=== PATIENT | female | born 1970 | race Caucasian/White ===

== ENCOUNTER → 2017-07-08 | Outpatient (CLI) | payer OTHER, SELFPAY | PROVIDERS: Visit Provider Nurse Practitioner Women's Health | DX: Z12.31 Encounter for screening mammogram for malignant neoplasm of breast (principal) | CPT/HCPCS: 77067; G0202 ==

== ENCOUNTER → 2018-04-24 07:42 | Outpatient (CLI) | payer OTHER, SELFPAY ==
--- NOTE | 2018-04-24 07:50 | XR_ITS ---
XR foot LT min 3V HISTORY: Soft tissue swelling ITS.REASON: cyst to lt foot ORDERING PHYSICIAN: Lukas Ocampo PATIENT AGE: 48 years COMPARISON: None FINDINGS: No fracture or dislocation. No lytic or blastic change. There is normal mineralization.. The joint spaces are well-preserved. No significant degenerative/arthritic changes. No erosive changes evident. No radiopaque foreign body or abnormal soft tissue calcification IMPRESSION: Negative, no acute finding
--- NOTE | 2018-04-24 07:50 | XR_ITS ---
EXAM: XR cervical spine 5V HISTORY: ITS.REASON: numbness to upper ext ORDERING PHYSICIAN: Lukas Ocampo PATIENT AGE: 48 years COMPARISON: None FINDINGS: Normal alignment. No fracture or dislocation. No lytic or blastic change. There is degenerative disc disease at C5-C6 with small endplate osteophytes and slight decrease in the disc space. Mild foraminal narrowing is present on the right at C3-C4 and C5-C6 from facet and uncovertebral hypertrophy. No cervical rib. Left carotid calcifications are suspected. IMPRESSION: Degenerative disc disease at C5-C6 with foraminal narrowing on the right at C3-C4 and C5-C6
--- NOTE | 2018-04-24 07:50 | XR_ITS ---
XR foot RT min 3V HISTORY: ITS.REASON: knot on foot ORDERING PHYSICIAN: Lukas Ocampo PATIENT AGE: 48 years COMPARISON: None FINDINGS: No fracture or dislocation. No lytic or blastic change. There is normal mineralization.. The joint spaces are well-preserved. No significant degenerative/arthritic changes. No erosive changes evident. No obvious soft tissue anomalies. No radiopaque foreign body IMPRESSION: Negative, no acute finding
[2018-04-24 08:46] LABS: Basophils % 0.4 % (0.1-2.0); Eosinophils # 0.1 K/mm3 (0.0-0.4); Eosinophils % 1.3 % (0.1-12.0); Hematocrit 44.5 % (37.0-47.0); Hemoglobin 14.5 g/dL (12.2-16.2); Lymphocytes # 1.7 K/mm3 (0.7-4.5); Lymphocytes % 18.3 K/mm3 (10-50); Mean Corpuscular HGB Conc 32.5 g/dL (31.8-35.4); Mean Corpuscular Hemoglobin 29.3 pg (27.0-31.2); Mean Corpuscular Volume 90.2 fl (81-99); Mean Platelet Volume 6.7 fl (7.4-10.4); Monocytes # 0.4 K/mm3 (0.1-1.0); Monocytes % 4.6 % (1.7-9.3); Neutrophils # 6.9 K/mm3 (1.8-7.8); Neutrophils % 75.4 % (37.0-80.0); Platelet Count 409 K/mm3 (142-424); Red Blood Count 4.94 M/mm3 (4.20-5.40); Red Cell Distribution Width 13.8 % (11.5-17.5); White Blood Count 9.2 K/mm3 (4.8-10.8)
[2018-04-24 09:44] LABS: Alanine Aminotransferase 22 U/L (12-78); Albumin Level 3.9 gm/dL (3.4-5.0); Albumin/Globulin Ratio 1.1 (1.1-1.8); Alkaline Phosphatase 86 U/L (46-116); Anion Gap 14.7 mEq/L (5-15); Aspartate Amino Transferase 7 U/L (15-37); Bilirubin,Total 0.3 mg/dL (0.2-1.0); Blood Urea Nitrogen 17 mg/dL (7-18); Calcium 9.2 mg/dL (8.5-10.1); Carbon Dioxide 25 mmol/L (21.0-32.0); Chloride 104 mmol/L (98-107); Chol/HDL Ratio 6.2 (1-3.5); Cholesterol 203 mg/dL (140-200); Creatinine,Serum 0.76 mg/dL (0.55-1.02); Estimated Glomerular Filt Rate 81 ml/min (>60); GFR (African American) 98 ML/MIN (>60); Globulin 3.4 gm/dl (1.3-3.2); Glucose 109 mg/dL (74-106); HDL Cholesterol 33 mg/dL (29-89); LDL Cholesterol 126 mg/dL (0-130); Potassium 3.7 mmoL/L (3.5-5.1); Sodium 140 mmol/L (136-145); T4 (Thyroxine) 7.3 ug/dl (4.7-13.3); Thyroid Stimulating Hormone 1.63 uIU/ml (0.358-3.740); Total Protein,Serum 7.3 gm/dL (6.4-8.2); Triglycerides 222 mg/dL (30-200); VLDL Cholesterol 44 mg/dL (0-40)
[2018-04-25 13:14] LABS: Vitamin D 25 Hydroxy 18.4 ng/mL (30.0-100.0)
== END ==
PROVIDERS: PCP Nurse Practitioner Family; Visit Provider Nurse Practitioner Family
DX: R20.0 Anesthesia of skin (principal); R20.2 Paresthesia of skin; Z13.220 Encounter for screening for lipoid disorders; M85.671 Other cyst of bone, right ankle and foot; M85.672 Other cyst of bone, left ankle and foot
CPT/HCPCS: 36415; 72050; 73630; 80053; 80061; 82652; 84436; 84443; 85025

== ENCOUNTER 2018-05-14 08:53 | Outpatient (RCR) | payer OTHER, SELFPAY ==
--- NOTE | 2018-05-14 09:53 | HMH.PTOPEV ---
PT Outpatient Evaluation Rehab PT Outpatient Evaluation Start: 05/14/18 09:10 Freq: Status: Active Protocol: Document 05/14/18 09:42 JIMMY (Rec: 05/14/18 09:52 PHORAURELIA [id number]) Electronically Signed By Abiel Macedo, PT 05/14/18 09:42 Outpatient Therapy Subjective History Subjective History Pt is 48 yowf who presents with c/o neck pain and intermittent left elbow pain x ~ 6 mos. She also reports numbness in tingling at night in fernando fingers intermittently. She had X-rays performed which show DDD at C5-6. She reports elbow pain is sharp, but only occurs when lifting something heavy or carrying my grandbaby. She reports ibuprophen decreases her pain. NOTE: She presents with exaggerated tenderness to palpation along the CT junction, no tenderness noted anywhere else. Chief Complaint Pain Symptom Type Ache Sharp Symptoms Relieved By OTC Meds Symptoms Aggravated By Lifting Prior Functional Limitations None Current Functional Limitations Lifting Symptom Description Constant but Variable Level of pain today (0-10) 3 Pain scale - at its worst (0-10) 8 Cervical Eval Palpation Cervical Muscles R CT Junction L CT Junction Cervical/Thoracic Palpation Findings Tenderness Posture Head/C-Spine Posture Sitting Position Extended Head/C-Spine Posture Standing Position Extended Passive Joint Mobility Cervical PIVM WNL: R OA L OA R AA L AA R C2/3 L C2/3 R C3/4 L C3/4 R C4/5 L C4/5 R C5/6 L C5/6 R C6/7 L C6/7 R C7/T1 L C7/T1 AROM Cervical Spine Extension Active Range of 0-60 Motion (degrees) Cervical Spine Flexion Active Range of 0-60 Motion (degrees)
== END 2018-05-14 08:54 | disposition home or self-care (01) ==
LOC: PT 08:53
PROVIDERS: Visit Provider Nurse Practitioner Family
DX: M54.2 Cervicalgia (principal)
CPT/HCPCS: 97163

== ENCOUNTER → 2018-07-16 10:25 | Outpatient (CLI) | payer OTHER, SELFPAY ==
--- NOTE | 2018-07-16 10:27 | MM_ITS ---
MM Dig screening mamm BI w/CAD CAD Screening COMPARISON: Digital mammograms with CAD 07/08/2017 and 06/25/2016 INDICATION: There is a history of breast cancer patient's paternal aunt diagnosed after menopause. TECHNIQUE: Standard CC and MLO images were obtained. R2 CAD reviewed. FINDINGS: Scattered fibroglandular densities are seen throughout both breasts. There is no new or suspicious lesion in either breast and there are no suspicious microcalcifications. There are stable small nodes in both axilla. IMPRESSION: Fibrofatty parenchyma no suspicious lesion seen BI-RADS Category: 1 Negative RECOMMENDED FOLLOW-UP: 1YR - 1 YEAR FOLLOW-UP (A letter has been sent to the patient regarding results of the study.)
== END ==
PROVIDERS: PCP Nurse Practitioner Family; Visit Provider Nurse Practitioner Obstetrics & Gynecology
DX: Z12.31 Encounter for screening mammogram for malignant neoplasm of breast (principal)
CPT/HCPCS: 77067

== ENCOUNTER → 2019-07-29 08:53 | Outpatient (CLI) | payer OTHER, SELFPAY ==
--- NOTE | 2019-07-29 08:59 | MM_ITS ---
PROCEDURE: MM DIG SCREENING MAMM BI W/CAD CLINICAL INDICATION: SCREENING COMPARISON: DMDXUR DIG MAMM-DX UNI-RT W/CAD from 12/27/2016 DMSB DIG MAMM-SCREEN MORIAH W/CAD from 07/08/2017 [facility] MM Dig screening mamm BI w/CAD from 07/16/2018 TECHNIQUE: Standard CC and MLO images were obtained. R2 CAD reviewed. FINDINGS: Scattered fibroglandular densities are seen throughout both breasts. There is a benign-appearing microcalcification outer quadrant right breast. There is no suspicious lesion and no suspicious microcalcifications. IMPRESSION: Fibrofatty parenchyma with no suspicious lesions seen BI-RAD Category: 2 Benign Finding(s) FOLLOW-UP: 1YR 1 Year Follow-up (A letter has been sent to the patient regarding results of the study.) Dictated by: Dr. Noah Cabrera MD 07/31/2019 10:[address] Noah Cabrera MD in [place] 07/31/2019 10:29
== END ==
PROVIDERS: PCP Nurse Practitioner Family
DX: Z12.31 Encounter for screening mammogram for malignant neoplasm of breast (principal)
CPT/HCPCS: 77067

== ENCOUNTER → 2020-09-06 10:02 | Outpatient (CLI) | payer OTHER, SELFPAY ==
--- NOTE | 2020-09-06 10:05 | MM_ITS ---
PROCEDURE: MM DIG SCREENING MAMM BI W/CAD Digital Breast Tomosynthesis Included CLINICAL INDICATION: SCREENING There is a history of breast cancer in the patient's paternal aunt. COMPARISON: MG DMSB DIG MAMM-SCREEN MORIAH W/CAD from 07/08/2017 MG [facility] MM Dig screening mamm BI w/CAD from 07/16/2018 MG MM DIG SCREENING MAMM BI W/CAD from 07/29/2019 TECHNIQUE: Standard CC and MLO images and 3D Tomosynthesis was obtained. R2 CAD reviewed. FINDINGS: Fibroglandular densities are seen throughout both breasts. There is a possible small area of architectural distortion upper outer quadrant right breast. Recommend the patient return for spot compression views and ultrasound if this proves to be a true lesion. There are no suspicious microcalcifications. IMPRESSION: Fibrofatty parenchyma with possible new area of architectural distortion right breast BI-RAD Category: 0 Need Additional Imaging Evaluation FOLLOW-UP: IMM Immediate Follow-up Recommended (A letter has been sent to the patient regarding results of the study.) Dictated by: Dr. Noah Cabrera MD 09/08/2020 07:40 Dr. Noah Cabrera MD in [place] 09/08/2020 07:40
== END ==
PROVIDERS: PCP Nurse Practitioner Family; Visit Provider Nurse Practitioner Women's Health
DX: Z12.31 Encounter for screening mammogram for malignant neoplasm of breast (principal)
CPT/HCPCS: 77063; 77067

== ENCOUNTER → 2020-09-21 14:23 | Outpatient (CLI) | payer OTHER, SELFPAY ==
--- NOTE | 2020-09-21 14:25 | MM_ITS ---
PROCEDURE: MM DIG MAMM DX UNILAT RT CAD Digital Breast Tomosynthesis Included CLINICAL INDICATION: ABN MAMM Follow-up asymmetric density COMPARISON: MG [facility] MM Dig screening mamm BI w/CAD from 07/16/2018 MG MM DIG SCREENING MAMM BI W/CAD from 07/29/2019 MG MM DIG SCREENING MAMM BI W/CAD from 09/06/2020 US US BREAST RT COMPLETE from 09/21/2020 TECHNIQUE: Problem solving views performed along with right breast ultrasound FINDINGS: Spot-compression views are performed of the right breast along with right breast ultrasound. The area of asymmetric density in the upper outer aspect of the right breast appears to compress out on focal spot compression views with no suspicious abnormality. There is some minimal residual density noted in this area which may be due to fibroglandular tissue. Right breast ultrasound: No cystic or solid lesion evident. IMPRESSION: Probably benign findings. Recommend six-month sonographic and mammographic follow-up BI-RAD Category: 3 Probably Benign Finding Short Term Follow-up FOLLOW-UP: 6M 6Month Follow-up (A letter has been sent to the patient regarding results of the study.) Dictated by: Daryn Lewis MD 09/26/2020 17:35 Daryn Lewis MD in [place] 09/26/2020 17:35
== END ==
PROVIDERS: PCP Nurse Practitioner Family; Referring Provider Nurse Practitioner Women's Health
DX: R92.8 Other abnormal and inconclusive findings on diagnostic imaging of breast (principal)
CPT/HCPCS: 76641; 77061; 77065; G0279

== ENCOUNTER → 2020-11-18 19:22 | Outpatient (CLI) | payer OTHER, SELFPAY ==
[2020-11-18 19:31] LABS: Basophils # 0.1 K/mm3 (0-0.2); Eosinophils # 0.1 K/mm3 (0.0-0.4); Hematocrit 44.9 % (37.0-47.0); Hemoglobin 14.4 g/dL (12.2-16.2); Lymphocytes # 2.2 K/mm3 (0.7-4.5); Lymphocytes % 21.1 % (10-50); Mean Corpuscular Hemoglobin 29.2 pg (27.0-31.2); Mean Corpuscular Volume 91.2 fl (81-99); Mean Platelet Volume 8.3 fl (7.4-10.4); Monocytes # 0.4 K/mm3 (0.1-1.0); Monocytes % 4.2 % (1.7-9.3); Neutrophils # 7.7 K/mm3 (1.8-7.8); Neutrophils % 72.7 % (37.0-80.0); Platelet Count 434 K/mm3 (142-424); Red Blood Count 4.93 M/mm3 (4.20-5.40); Red Cell Distribution Width 13.9 % (11.5-17.5); White Blood Count 10.6 K/mm3 (4.8-10.8)
[2020-11-18 19:32] LABS: Alanine Aminotransferase 21 U/L (12-78); Albumin Level 4.4 g/dl (3.5-5.0); Albumin/Globulin Ratio 1.8 (1.1-1.8); Alkaline Phosphatase 85 U/L (38-126); Anion Gap 14.3 mEq/L (5-15); Aspartate Amino Transferase 23 U/L (14-36); Bilirubin,Total 0.2 mg/dl (0.2-1.3); Blood Urea Nitrogen 11 mg/dl (7-17); Calcium 9.6 mg/dl (8.4-10.2); Carbon Dioxide 24 mmol/L (22.0-30.0); Chloride 105 mmol/L (98-107); Chol/HDL Ratio 6.7 (1-3.5); Cholesterol 209 mg/dl (140-200); Estimated Glomerular Filt Rate 105 ml/min (>60); GFR (African American) 128 ML/MIN (>60); Globulin 2.5 g/dL (1.3-3.2); Glucose 98 mg/dl (74-100); HDL Cholesterol 31 mg/dl (40-60); Potassium 4.3 mmoL/L (3.5-5.1); Sodium 139 mmol/L (136-145); Total Protein,Serum 6.9 g/dl (6.3-8.2); Triglycerides 318 mg/dl (30-150); VLDL Cholesterol 64 mg/dL (0-40)
[2020-11-18 19:43] LABS: Direct LDL Cholesterol 137.63 mg/dL (100-129)
[2020-11-18 19:50] LABS: T4 (Thyroxine) 6.2 ug/dl (5.53-11.0)
[2020-11-18 19:51] LABS: 25-OH Vitamin D, Total < 12.8 ng/mL (30-100)
[2020-11-18 20:04] LABS: Thyroid Stimulating Hormone 1.65 uIU/mL (0.465-4.68)
== END ==
PROVIDERS: Visit Provider Nurse Practitioner Family
DX: I10 Essential (primary) hypertension (principal); M54.9 Dorsalgia, unspecified; E78.5 Hyperlipidemia, unspecified; E55.9 Vitamin D deficiency, unspecified
CPT/HCPCS: 80053; 80061; 82306; 84436; 84443; 85025

== ENCOUNTER → 2020-12-13 14:52 | Outpatient (CLI) | payer OTHER, SELFPAY ==
[2020-12-13 15:12] LABS: Alanine Aminotransferase 23 U/L (12-78); Alkaline Phosphatase 84 U/L (38-126); Aspartate Amino Transferase 22 U/L (14-36); Bilirubin,Direct 0.1 mg/dl (0.0-0.4); Bilirubin,Indirect 0.2 mg/dL (0.0-0.9); Bilirubin,Total 0.3 mg/dl (0.2-1.3); Bilirubin,Unconjugated 0.2 mg/dL (0.0-1.1)
[2020-12-13 15:13] LABS: Albumin Level 4.3 g/dl (3.5-5.0); Total Protein,Serum 6.9 g/dl (6.3-8.2)
== END ==
PROVIDERS: Nurse Practitioner Family; Visit Provider Emergency Medicine
DX: R79.89 Other specified abnormal findings of blood chemistry (principal)
CPT/HCPCS: 80076

== ENCOUNTER → 2021-01-31 09:00 | Outpatient (CLI) | payer OTHER, SELFPAY ==
--- NOTE | 2021-01-31 09:03 | XR_ITS ---
PROCEDURE: XR KNEE RT 3V CLINICAL INDICATION: knee pain COMPARISON: No exams were available for comparison FINDINGS: No fracture or dislocation. No lytic or blastic change. There is normal mineralization. There are minimal osteoarthritic changes with minimal spurring medially. Vascular calcification noted Other findings:None. IMPRESSION: Minimal osteoarthritic change Dictated by: Daryn Lewis MD 01/31/2021 11:18 Daryn Lewis MD in [place] 01/31/2021 11:18
== END ==
PROVIDERS: PCP Nurse Practitioner Family; Visit Provider Nurse Practitioner Family
DX: M25.561 Pain in right knee (principal)
CPT/HCPCS: 73562

== ENCOUNTER → 2021-03-10 12:16 | Outpatient (CLI) | payer OTHER, SELFPAY ==
--- NOTE | 2021-03-10 12:19 | XR_ITS ---
PROCEDURE: XR KNEE RT 4V CLINICAL INDICATION: right knee pain COMPARISON: CR XR KNEE RT 3V from 01/31/2021 FINDINGS: No fracture or dislocation. No lytic or blastic change. There is normal mineralization. There are minimal osteoarthritic change at the patellofemoral joint with minimal spurring laterally Other findings:Nonspecific vascular calcification IMPRESSION: Minimal osteoarthritic change patellofemoral joint otherwise negative Dictated by: Daryn Lewis MD 03/10/2021 12:46 Daryn Lewis MD in [place] 03/10/2021 12:46
== END ==
PROVIDERS: PCP Nurse Practitioner Family; Visit Provider Orthopaedic Surgery
DX: M25.561 Pain in right knee (principal)
CPT/HCPCS: 73564

== ENCOUNTER → 2021-04-28 14:12 | Outpatient (CLI) | payer OTHER, SELFPAY ==
--- NOTE | 2021-04-28 14:21 | MM_ITS ---
PROCEDURE: MM DIG MAMM DX UNILAT RT CAD Digital Breast Tomosynthesis Included Right breast ultrasound with axilla complete CLINICAL INDICATION: RT BREAST FU COMPARISON: MG MM DIG SCREENING MAMM BI W/CAD from 07/29/2019 MG MM DIG SCREENING MAMM BI W/CAD from 09/06/2020 MG MM DIG MAMM DX UNILAT RT CAD from 09/21/2020 US US BREAST RT COMPLETE from 04/28/2021 TECHNIQUE: Standard CC and MLO images and 3D Tomosynthesis was obtained. R2 CAD reviewed. FINDINGS: There are scattered areas of fibroglandular density. No suspicious appearing mass, malignant-appearing microcalcification, architectural distortion, or skin thickening.. No change in the area of asymmetry consistent with underlying fibroglandular tissue. No evidence of malignancy. Right breast ultrasound: No cystic or solid lesions apparent. IMPRESSION: No change with no evidence of malignancy. BI-RAD Category: 2 Benign Finding FOLLOW-UP: 6M 6 Month Follow-up Recommend resuming bilateral screening mammogram in 6 months. (A letter has been sent to the patient regarding results of the study.) Dictated by: Daryn Lewis MD 05/10/2021 09:08 Daryn Lewis MD in [place] 05/10/2021 09:08
== END ==
PROVIDERS: PCP Nurse Practitioner Family; Visit Provider Nurse Practitioner Women's Health
DX: R92.8 Other abnormal and inconclusive findings on diagnostic imaging of breast (principal)
CPT/HCPCS: 76641; 77061; 77065; G0279

== ENCOUNTER → 2022-01-02 10:37 | Outpatient (CLI) | payer OTHER, SELFPAY ==
--- NOTE | 2022-01-02 10:41 | MM_ITS ---
PROCEDURE INFORMATION: Exam: MG Bilateral Screening 3D Mammography Exam date and time: 01/02/2022 10:47 AM Age: 51 years old Clinical indication: Screening examination. A paternal aunt had breast cancer. TECHNIQUE: Imaging protocol: Bilateral Screening tomosynthesis and 2D mammography including computer-aided detection (CAD) when performed. COMPARISON: 1. MG MM DIG MAMM DX UNILAT RT CAD 04/28/2021 2:35 PM 2. MG MM DIG MAMM DX UNILAT RT CAD 09/21/2020 2:58 PM 3. MG MM DIG SCREENING MAMM BI W/CAD 09/06/2020 10:06 AM 4. MG MM DIG SCREENING MAMM BI W/CAD 07/29/2019 9:12 AM FINDINGS: MAMMOGRAPHY: Breast composition: There are scattered areas of fibroglandular density. Mass: No suspicious mass. Architectural distortion: None. Calcifications: No suspicious calcifications. Asymmetric density: None. Skin thickening: None. Axillary adenopathy: None. IMPRESSION: No mammographic evidence of malignancy. Annual screening is recommended unless otherwise clinically indicated. ASSESSMENT: BI-RADS Category 1: Negative
== END ==
PROVIDERS: PCP Nurse Practitioner Family; Visit Provider Nurse Practitioner Women's Health
DX: Z12.31 Encounter for screening mammogram for malignant neoplasm of breast (principal)
CPT/HCPCS: 77063; 77067

== ENCOUNTER → 2022-01-05 09:24 | Outpatient (CLI) | payer OTHER, SELFPAY ==
[2022-01-05 17:05] LABS: Hemoglobin A1C 5.6 % (4.0-6.0)
== END ==
PROVIDERS: PCP Nurse Practitioner Family; Visit Provider Nurse Practitioner Family
DX: R73.09 Other abnormal glucose (principal)
CPT/HCPCS: 83036

== ENCOUNTER → 2022-04-26 17:27 | Outpatient (CLI) | payer OTHER, SELFPAY ==
[2022-04-26 15:29] LABS: Alanine Aminotransferase 38 U/L (12-78); Albumin/Globulin Ratio 1.5 (1.1-1.8); Alkaline Phosphatase 103 U/L (38-126); Aspartate Amino Transferase 32 U/L (14-36); Blood Urea Nitrogen 14 mg/dl (7-17); Calcium 9.1 mg/dl (8.4-10.2); Carbon Dioxide 24 mmol/L (22.0-30.0); Chloride 108 mmol/L (98-107); Cholesterol 156 mg/dl (140-200); Estimated Glomerular Filt Rate 105 ml/min (>60); GFR (African American) 127 ML/MIN (>60); Globulin 2.7 g/dL (1.3-3.2); Glucose 131 mg/dl (74-100); HDL Cholesterol 31 mg/dl (40-60); Sodium 139 mmol/L (136-145); Total Protein,Serum 6.7 g/dl (6.3-8.2); Triglycerides 148 mg/dl (30-150); VLDL Cholesterol 30 mg/dL (0-40)
[2022-04-26 15:39] LABS: Basophils # 0.1 K/mm3 (0-0.2); Basophils % 1.3 % (0.1-2.0); Eosinophils # 0.1 K/mm3 (0.0-0.4); Eosinophils % 1.3 % (0.1-12.0); Hematocrit 45.8 % (37.0-47.0); Hemoglobin 14.1 g/dL (12.2-16.2); Lymphocytes # 2.1 K/mm3 (0.7-4.5); Lymphocytes % 25.6 % (10-50); Mean Corpuscular HGB Conc 30.8 g/dL (31.8-35.4); Mean Corpuscular Hemoglobin 29.1 pg (27.0-31.2); Mean Corpuscular Volume 94.6 fl (81-99); Monocytes # 0.3 K/mm3 (0.1-1.0); Monocytes % 3.8 % (1.7-9.3); Neutrophils # 5.7 K/mm3 (1.8-7.8); Platelet Count 460 K/mm3 (142-424); Red Blood Count 4.84 M/mm3 (4.20-5.40); Red Cell Distribution Width 13.8 % (11.5-17.5); White Blood Count 8.4 K/mm3 (4.8-10.8)
[2022-04-26 15:45] LABS: 25-OH Vitamin D, Total 20.5 ng/mL (30-100); Bilirubin,Total < 0.1 mg/dl (0.2-1.3)
[2022-04-26 15:59] LABS: Thyroid Stimulating Hormone 1.54 uIU/mL (0.465-4.68)
[2022-04-26 16:29] LABS: Hemoglobin A1C 5.8 % (4.0-6.0)
[2022-04-28 08:20] LABS: Direct LDL Cholesterol 87 mg/dL (100-129)
== END ==
PROVIDERS: PCP Physician Assistant; Visit Provider Physician Assistant
DX: E78.5 Hyperlipidemia, unspecified (principal); E55.9 Vitamin D deficiency, unspecified; R73.9 Hyperglycemia, unspecified
CPT/HCPCS: 80053; 80061; 82306; 83036; 84443; 85025

== ENCOUNTER → 2022-04-27 09:27 | Outpatient (CLI) | payer OTHER, SELFPAY ==
--- NOTE | 2022-04-27 09:32 | XR_ITS ---
FINAL REPORT CLINICAL HISTORY: wheezing, smoker FINDINGS: Two views of the chest were obtained. The heart size and pulmonary vascularity are within normal limits. The mediastinum is normal. No acute pulmonary abnormality is identified. There is no pneumothorax. The bony thorax is intact. IMPRESSION: No active cardiopulmonary disease. Reviewed, Interpreted and Dictated by Brayan Torres III, MD Transcribed by Ana Johnson Authenticated and . [facility]
== END ==
PROVIDERS: PCP Physician Assistant; Visit Provider Student in an Organized Health Care Education/Training Program
DX: R06.2 Wheezing (principal)
CPT/HCPCS: 71046

== ENCOUNTER → 2022-06-29 10:21 | Outpatient (CLI) | payer OTHER, SELFPAY ==
--- NOTE | 2022-06-29 11:00 | PC.NURSE ---
PRE AND POST PFT completed without incident. Albuterol 0.083% given via HHN, per protocol, pt tolerated tx well.
== END ==
PROVIDERS: PCP Student in an Organized Health Care Education/Training Program; Visit Provider Internal Medicine Pulmonary Disease
DX: R06.2 Wheezing (principal)
CPT/HCPCS: 94060

== ENCOUNTER → 2022-07-26 13:06 | Outpatient (CLI) | payer OTHER, SELFPAY ==
--- NOTE | 2022-07-26 13:07 | CA_ITS ---
FINAL REPORT TECHNIQUE: Multiple transverse and longitudinal images were performed of right the femoral-popliteal deep venous system with augmentation and compression maneuvers. CLINICAL HISTORY: RLE burning pain worsening with walking, smoker FINDINGS: Right lower extremity duplex ultrasound demonstrates normal flow in the deep venous system. There is no abnormal echogenicity to suggest thrombus. There is normal compression and augmentation. IMPRESSION: No evidence of right DVT. Reviewed, Interpreted and Dictated by Shashank Blanca MD Transcribed by Bryon Salas Authenticated and [facility]
== END ==
PROVIDERS: PCP Physician Assistant; Visit Provider Physician Assistant
DX: M79.661 Pain in right lower leg (principal)
CPT/HCPCS: 93971

== ENCOUNTER → 2022-09-28 13:27 | Outpatient (CLI) | payer OTHER, SELFPAY ==
--- NOTE | 2022-09-28 13:27 | MR_ITS ---
FINAL REPORT CLINICAL HISTORY: longstanding radiculopathy of lumbar spine unable to stand on right leg very long x couple of months FINDINGS: Multiplanar MR imaging of the lumbar spine was performed without contrast. On the sagittal T2-weighted images, disc degeneration is seen throughout The vertebral alignment is normal. There is no evidence of fracture. The conus has an unremarkable appearance. T12-L1: There is no significant canal stenosis or neural foraminal narrowing. L1-2: There is no significant canal stenosis or neural foraminal narrowing. L2-3: An annular bulge is present. There is no significant canal stenosis or neural foraminal narrowing. L3-4: An annular bulge is present. There is a right foraminal disc protrusion with moderate right and mild left neural foraminal narrowing. L4-5: An annular bulge is present with moderate bilateral neural foraminal narrowing. L5-S1: An annular bulge is present. There is a right foraminal disc protrusion resulting in right lateral recess stenosis and right S1 nerve root impingement. There is moderate bilateral neural foraminal narrowing. IMPRESSION: Right foraminal disc protrusion at L5-S1 results in right lateral recess stenosis and right S1 nerve root impingement. Multilevel degenerative disc disease as above. Reviewed, Interpreted and Dictated by Brayan Torres III, MD Transcribed by Ana Johnson Authenticated and [facility]
== END ==
PROVIDERS: PCP Physician Assistant; Visit Provider Physician Assistant
DX: M54.10 Radiculopathy, site unspecified (principal)
CPT/HCPCS: 72148; 76376

== ENCOUNTER 2022-10-16 14:46 | Outpatient (RCR) | payer OTHER, SELFPAY ==
--- NOTE | 2022-10-16 15:52 | HMH.PTOPEV ---
PT Outpatient Evaluation Rehab PT Outpatient Evaluation Start: 10/16/22 15:14 Freq: Status: Active Protocol: Document 10/16/22 15:14 SUE (Rec: 10/16/22 15:52 SUE [id number]) E-signed By Rohan Simon, PT Outpatient Therapy Subjective History Subjective History Pt reports insidious onset right LE pain beginning ~2 months ago. Pt reports right LE lateral calf, posterior knee area localized severe pain, josue. w/wt bearing. Pt reports recent MRI of lumbar spine has revealed disc herniation at L5-S1, 'but my back doesn't hurt at all. I don't understand.' Pt also reports recent NCV and US of the RLE were negative. Chief Complaint Pain,Paresthesia Symptom Type Ache,Sharp,Dull,Stabbing, Shooting Symptoms Relieved By Rest/Positioning,Heat Symptoms Aggravated By Standing,Physical Activity, Walking Prior Functional Limitations Housework,Standing,Walking Current Functional Limitations Housework,Standing,Walking Symptom Description Constant but Variable Level of pain today (0-10) 7 Pain scale - at its best (0-10) 6 Pain scale - at its worst (0-10) 9 Lumbopelvic Eval Posture Thoracic Spine Posture Standing Position Flattened Lumbar Spine Posture Standing Position Flattened Assistive device Assistive Devices None / NA Gait Observation General Gait Pattern Observation Antalgic Gait Palapation tenderness right thoracic spinal tenderness No lumbar spinal tenderness Yes: 2-3/4 paraspinal tenderness No buttock tenderness No Accessory Movement L-spine Vertebrae Accessory Movements Central P/A [place] that Elicit Symptoms L5 bilateral S1 bilateral Range of Motion Lumbar Spine Active Flexion Range of 0-50 Motion (degrees) Lumbar Spine Active Extension Range of 0-10* Motion (degrees) Left Lumbar Spine Lateral Flexion Active 0-20 Range of Motion (degrees) Right Lumbar Spine Lateral Flexion 0-20 Active Range of Motion (degrees) Lumbar Spine ROM Limitations Pain Manual Muscle Test Left Knee Extension Strength Grade 5 Normal Knee Flexion Strength Grade 5 Normal Hip Flexion Strength Grade 5 Normal Hip Abduction Strength Grade 4 Good Hip Adduction Strength Grade 4 Good Extensor Hallucis Longus Strength Grade
--- NOTE | 2022-10-16 15:53 | HMH.PTOPEV ---
PT Outpatient Evaluation Rehab PT Outpatient Evaluation Start: 10/16/22 15:14 Freq: Status: Active Protocol: Document 10/16/22 15:14 SUE (Rec: 10/16/22 15:52 SUE [id number]) E-signed By Rohan Simon, PT Outpatient Therapy Subjective History Subjective History Pt reports insidious onset right LE pain beginning ~2 months ago. Pt reports right LE lateral calf, posterior knee area localized severe pain, josue. w/wt bearing. Pt reports recent MRI of lumbar spine has revealed disc herniation at L5-S1, 'but my back doesn't hurt at all. I don't understand.' Pt also reports recent NCV and US of the RLE were negative. Chief Complaint Pain,Paresthesia Symptom Type Ache,Sharp,Dull,Stabbing, Shooting Symptoms Relieved By Rest/Positioning,Heat Symptoms Aggravated By Standing,Physical Activity, Walking Prior Functional Limitations Housework,Standing,Walking Current Functional Limitations Housework,Standing,Walking Symptom Description Constant but Variable Level of pain today (0-10) 7 Pain scale - at its best (0-10) 6 Pain scale - at its worst (0-10) 9 Lumbopelvic Eval Posture Thoracic Spine Posture Standing Position Flattened Lumbar Spine Posture Standing Position Flattened Assistive device Assistive Devices None / NA Gait Observation General Gait Pattern Observation Antalgic Gait Palapation tenderness right thoracic spinal tenderness No lumbar spinal tenderness Yes: 2-3/4 paraspinal tenderness No buttock tenderness No Accessory Movement L-spine Vertebrae Accessory Movements Central P/A [place] that Elicit Symptoms L5 bilateral S1 bilateral Range of Motion Lumbar Spine Active Flexion Range of 0-50 Motion (degrees) Lumbar Spine Active Extension Range of 0-10* Motion (degrees) Left Lumbar Spine Lateral Flexion Active 0-20 Range of Motion (degrees) Right Lumbar Spine Lateral Flexion 0-20 Active Range of Motion (degrees) Lumbar Spine ROM Limitations Pain Manual Muscle Test Left Knee Extension Strength Grade 5 Normal Knee Flexion Strength Grade 5 Normal Hip Flexion Strength Grade 5 Normal Hip Abduction Strength Grade 4 Good Hip Adduction Strength Grade 4 Good Extensor Hallucis Longus Strength Grade
== END 2022-10-16 14:50 | disposition home or self-care (01) ==
LOC: PT 14:46
PROVIDERS: PCP Physician Assistant; Visit Provider Physician Assistant
DX: M79.604 Pain in right leg (principal)
CPT/HCPCS: 97163

== ENCOUNTER → 2022-10-24 16:32 | Outpatient (CLI) | payer OTHER, SELFPAY ==
[2022-10-24 15:09] LABS: Basophils # 0.1 K/mm3 (0-0.2); Eosinophils # 0.1 K/mm3 (0.0-0.4); Eosinophils % 1.4 % (0.1-12.0); Hematocrit 47.1 % (37.0-47.0); Hemoglobin 15.1 g/dL (12.2-16.2); Lymphocytes # 2.5 K/mm3 (0.7-4.5); Lymphocytes % 24.5 % (10-50); Mean Corpuscular Hemoglobin 29.6 pg (27.0-31.2); Mean Corpuscular Volume 92.6 fl (81-99); Mean Platelet Volume 8.4 fl (7.4-10.4); Monocytes # 0.4 K/mm3 (0.1-1.0); Monocytes % 4.3 % (1.7-9.3); Neutrophils # 6.9 K/mm3 (1.8-7.8); Neutrophils % 68.8 % (37.0-80.0); Platelet Count 525 K/mm3 (142-424); Red Blood Count 5.09 M/mm3 (4.20-5.40); Red Cell Distribution Width 14.1 % (11.5-17.5); White Blood Count 10.1 K/mm3 (4.8-10.8)
[2022-10-24 15:14] LABS: Alanine Aminotransferase 23 U/L (12-78); Albumin Level 4.8 g/dl (3.5-5.0); Albumin/Globulin Ratio 1.5 (1.1-1.8); Alkaline Phosphatase 101 U/L (38-126); Anion Gap 9.9 mEq/L (5-15); Aspartate Amino Transferase 26 U/L (14-36); Bilirubin,Total 0.6 mg/dl (0.2-1.3); Blood Urea Nitrogen 14 mg/dl (7-17); Calcium 9.5 mg/dl (8.4-10.2); Carbon Dioxide 29 mmol/L (22.0-30.0); Chloride 103 mmol/L (98-107); Chol/HDL Ratio 6.5 (1-3.5); Cholesterol 239 mg/dl (140-200); Estimated Glomerular Filt Rate 88 ml/min (>60); GFR (African American) 106 ML/MIN (>60); Globulin 3.1 g/dL (1.3-3.2); Glucose 98 mg/dl (74-100); HDL Cholesterol 37 mg/dl (40-60); Potassium 4.9 mmoL/L (3.5-5.1); Sodium 137 mmol/L (136-145); Total Protein,Serum 7.9 g/dl (6.3-8.2); Triglycerides 207 mg/dl (30-150); VLDL Cholesterol 41 mg/dL (0-40)
[2022-10-24 15:25] LABS: Direct LDL Cholesterol 161.62 mg/dL (100-129)
[2022-10-24 15:36] LABS: 25-OH Vitamin D, Total < 12.8 ng/mL (30-100)
[2022-10-24 15:46] LABS: Thyroid Stimulating Hormone 1.77 uIU/mL (0.465-4.68)
[2022-10-24 16:05] LABS: Vitamin B12 413 pg/mL (239-931)
== END ==
PROVIDERS: PCP Physician Assistant; Visit Provider Physician Assistant
DX: M54.16 Radiculopathy, lumbar region (principal); E78.5 Hyperlipidemia, unspecified; E55.9 Vitamin D deficiency, unspecified
CPT/HCPCS: 80053; 80061; 82306; 82607; 84443; 85025

== ENCOUNTER → 2023-01-03 10:02 | Outpatient (CLI) | payer OTHER, SELFPAY ==
--- NOTE | 2023-01-03 10:02 | MM_ITS ---
PROCEDURE INFORMATION: Exam: MG Bilateral Screening 3D Mammography Exam date and time: 01/03/2023 10:00 AM Age: 52 years old Clinical indication: Screening examination TECHNIQUE: Imaging protocol: Bilateral Screening tomosynthesis and 2D mammography including computer-aided detection (CAD) when performed. COMPARISON: 1. MG MM DIG SCREENING MAMM BI W/CAD 01/02/2022 10:47 AM 2. MG MM DIG MAMM DX UNILAT RT CAD 04/28/2021 2:35 PM FINDINGS: MAMMOGRAPHY: Breast composition: There are scattered areas of fibroglandular density. Mass: None. Architectural distortion: Questionable architectural distortion in the middle to posterior third of the left lateral breast only well seen in the craniocaudal projection Calcifications: No suspicious calcifications. Asymmetric density: None. Skin thickening: None. Axillary adenopathy: None. IMPRESSION: Patient to be recalled for spot compression views of the left breast in the CC and MLO projections, a full 90 degree lateral view, and left breast ultrasound for further evaluation of questionable left breast distortion ASSESSMENT: BI-RADS Category 0: Incomplete- Need Additional Imaging Evaluation and/or Prior Mammograms for Comparison
== END ==
PROVIDERS: PCP Physician Assistant; Visit Provider Physician Assistant
DX: Z12.31 Encounter for screening mammogram for malignant neoplasm of breast (principal)
CPT/HCPCS: 77063; 77067

== ENCOUNTER → 2023-01-09 08:15 | Outpatient (POV) | payer OTHER, SELFPAY ==
[2023-01-09 08:21] VITALS: BP 161/90; PULSE 91; RESP 20; O2SAT 94; BMI 30.2
--- NOTE | 2023-01-09 08:54 | EXP.PAIN.OV ---
HPI Data of Consult Patient: new to practice Consult date: 01/09/23 Requesting Physician: Leonarda Han APRN Primary Care Provider: YUE Najera Consult Narrative Reason for consult: Low back pain, right leg pain History of present illness: Ms. Justin is a 52 year old female who presents today as a new patient. She is a referral from Mari Conn's office. Today she rates her pain a 7 out of 10. Patient states her pain is all in her low back with radiating symptoms into her right leg down to her foot. She states this has been going on for over a year. Patient denies any specific trauma or injury that initially led to this symptoms. She states it did get better however over the last several months it has worsened again. She does describe this as a constant achy sensation that is worse with increased activity or prolonged positioning. Patient does state it interferes with her ability to perform activities of daily living such as cooking and cleaning. She has tried [id number] Tylenol along with Advil with minimal improvement. Patient continues to use a heating pad and Aspercreme along with a hand-held massager with no additional relief. Patient has also been to physical therapy with no change in her pain symptoms. Patient is now currently prescribed [place] 5 mg 3 times a day from her primary care doctor and gabapentin 100 mg twice a day. Patient denies any side effects from these medications. She states that the [place] only eases her pain. Her Tom is [id number]. Its been reviewed and appropriate. CC: Leonarda Han APRN [facility] Disclaimer: The information contained in this section may have been updated after the patient was seen, as this information can be updated by other users. Medical History Lower extremity pain Lumbar nerve root impingement Family History (Updated 01/09/23 @ 08:21 by Lucrecia Batista RN) Other No significant family history Social History (Updated 01/09/23 @ 08:22 by Lucrecia aBtista RN) Smoking Status: Current every day smoker tobacco type: cigarettes packs per day: 10 alcohol intake: never substance use type: denies use current occupational status: other Travel in the last 8 weeks: None household members: family housing: apartment Review of Systems Review of Systems Review of systems:: pertinent systems reviewed and negative unless documented below Review of systems (narrative): Review of Systems: General: No recent weight changes, no fever, no sleep disturbances Respiratory: No cough, no shortness of air, no recurring pulmonary infections Cardiovascular/peripheral vascular: No chest pain, no palpitations, no edema, no shortness of breath Gastrointestinal: No new onset incontinence, normal bowel movements reported Genitourinary: No new onset incontinence Musculoskeletal: Low back pain, right leg pain Psychiatric: [Normal mood/affect] Neurological: [Denies weakness in extremities], [denies balance issues] Meds Home Medications and Allergies Home Medications Medication Instructions Recorded Confirmed Type ibuprofen 200 mg tablet (Advil) 200 mg PO ONCE PRN Pain 04/16/18 01/09/23 History hydrocodone 5 mg-acetaminophen 325 1 tab PO TID PRN pain #60 tabs 12/04/22 01/09/23 Rx mg tablet atorvastatin 10 mg tablet 10 mg PO HS Cholesterol 01/09/23 01/09/23 History cholecalciferol (vitamin D3) 50 50 mcg PO DAILY Supplement 01/09/23 01/09/23 History mcg (2,000 unit) capsule ergocalciferol (vitamin D2) 1,250 50,000 unit PO QWEEK Supplement 01/09/23 01/09/23 History mcg (50,000 unit) capsule New Prescriptions to Start Prescriptions: Allergies Allergy/AdvReac Type Severity Reaction Status Date / Time gabapentin AdvReac Severe Chest Pain Verified 12/04/22 10:24 Objective Vital signs: Pulse Resp BP Pulse Ox 91 H 20 161/90 H 94 L 01/09/23 08:21 01/09/23 08:21 01/09/23 08:2
== END ==
PROVIDERS: PCP Physician Assistant; Visit Provider Nurse Practitioner Family
DX: M51.16 Intervertebral disc disorders with radiculopathy, lumbar region (principal)
CPT/HCPCS: 99202; G0463

== ENCOUNTER → 2023-01-17 13:41 | Outpatient (CLI) | payer OTHER, SELFPAY ==
--- NOTE | 2023-01-17 13:41 | US_ITS ---
PROCEDURE INFORMATION: Exam: US Left Breast, Complete MG Left Diagnostic Breast Tomosynthesis Exam date and time: 01/17/2023 3:29 PM Age: 53 years old Clinical indication: Patient recalled on the basis of a screening mammogram for further evaluation; Left breast; questionable distortion TECHNIQUE: Imaging protocol: Complete ultrasound of all four quadrants of the left breast and the retroareolar regions, including ultrasound of the axilla when performed. Left Diagnostic tomosynthesis and 2D mammography including computer-aided detection (CAD) when performed. Unilateral or bilateral exam. COMPARISON: MG MM DIG MAMM DX UNILAT LT CAD 01/17/2023 1:54 PM FINDINGS: MAMMOGRAPHY: Digital diagnostic spot compression views of the left breast and 90 degree lateral view of the left breast demonstrate normal overlapping fibroglandular structures without persistent mass or asymmetry identified. ULTRASOUND: Sonographic images of the left breast including the retroareolar region, all 4 quadrants and the axilla do not demonstrate any solid or cystic masses. No architectural distortion or acoustical shadowing. No skin thickening or axillary adenopathy. IMPRESSION: No mammographic or sonographic evidence of malignancy. Annual bilateral mammographic screening is recommended unless otherwise clinically indicated. ASSESSMENT: BI-RADS Category 1: Negative
== END ==
PROVIDERS: PCP Physician Assistant; Visit Provider Physician Assistant
DX: R92.8 Other abnormal and inconclusive findings on diagnostic imaging of breast (principal)
CPT/HCPCS: 76641; 77061; 77065; G0279

== ENCOUNTER → 2023-02-11 13:44 | Outpatient (CLI) | payer OTHER, SELFPAY ==
[2023-02-11 13:54] LABS: Amphetamine/Metha Screen,Urine Negative ng/ml (<1000)
[2023-02-11 13:55] LABS: Barbiturates Screen,Urine Negative ng/ml (<200); Benzodiazepines Screen,Urine Negative ng/ml (<200)
[2023-02-11 13:56] LABS: Cannabinoid Screen,Urine Negative ng/ml (<50); Cocaine Screen,Urine Negative ng/ml (<300)
[2023-02-11 13:57] LABS: Methadone Screen,Urine Negative ng/ml (<300)
[2023-02-11 13:58] LABS: Opiate Screen,Urine Positive ng/ml (<300); Phencyclidine Screen,Urine Negative ng/ml (<25)
== END ==
PROVIDERS: PCP Physician Assistant; Visit Provider Physician Assistant
DX: M51.36 Other intervertebral disc degeneration, lumbar region (principal)
CPT/HCPCS: 80305

== ENCOUNTER 2023-03-05 10:21 | Day surgery (SDC) | payer OTHER, SELFPAY ==
[2023-03-05 10:30] VITALS: BP 148/87; BP 154/92; PULSE 81; PULSE 82; PULSE 86; RESP 18; TEMP 36.6; O2SAT 97; BMI 30.2
[2023-03-05 10:38] VITALS: BP 146/83; PULSE 77; RESP 18; O2SAT 97
--- NOTE | 2023-03-05 10:46 | P.PCN_ITS ---
Procedure Date: 03/05/23 Time: 10:30 Anesthesiologist:: Haile Carmona CRNA Complications:: None Pre-procedure Diagnosis:: Degenerative disc lumbar spine multilevels. Lumbar radiculopathy. Lumbar disc bulge L5-S1. Post-procedure Diagnosis:: Same. Indications for Procedure:: Patient is a very pleasant 52-year-old female that comes our clinic today for right L5-S1 transforaminal epidural steroid injection. Patient complains of right hip and leg pain to the foot. She describes the pain as constant, dull, aching. She rates pain 7/10 Procedure Details:: Details of the procedure were explained to the patient. The patient was taken the procedure room placed in the prone position. The area of the lumbar spine was cleansed using chlorhexidine as a cleansing solution. At this time using fluoroscopy guidance markers were placed on the right lateral border of the L5 vertebral body. The skin and subcutaneous tissue was anesthetized using 1% lidocaine and 25-gauge needle. At this time using a 22-gauge 3-1/2 inch spinal needle the right upper one third of the L5-S1 foramen was accessed. Needle positions were confirmed and a lateral view using fluoroscopy and contrast dye. At this time 1 cc of 1% lidocaine +20 mg of Depo-Medrol was injected after negative aspiration. [place] were removed. Band-Aid applied. Patient tolerated the procedure without difficulty. There are no complications. Plan and Disposition:: Patient was discharged without incident.
== END 2023-03-05 10:38 | disposition home or self-care (01) ==
LOC: SC.PAINP 10:21
PROVIDERS: PCP Physician Assistant; Visit Provider Nurse Anesthetist, Certified Registered
DX: M51.16 Intervertebral disc disorders with radiculopathy, lumbar region (principal)
CPT/HCPCS: 64483; J1030

== ENCOUNTER → 2023-03-19 13:04 | Outpatient (CLI) | payer OTHER, SELFPAY ==
[2023-03-19 17:55] LABS: Amphetamine/Metha Screen,Urine Negative ng/ml (<1000); Barbiturates Screen,Urine Negative ng/ml (<200)
[2023-03-19 17:56] LABS: Benzodiazepines Screen,Urine Negative ng/ml (<200)
[2023-03-19 17:57] LABS: Cannabinoid Screen,Urine Negative ng/ml (<50); Opiate Screen,Urine Positive ng/ml (<300)
[2023-03-19 17:58] LABS: Cocaine Screen,Urine Negative ng/ml (<300)
[2023-03-19 17:59] LABS: Methadone Screen,Urine Negative ng/ml (<300)
[2023-03-19 18:00] LABS: Phencyclidine Screen,Urine Negative ng/ml (<25)
== END ==
PROVIDERS: PCP Physician Assistant; Visit Provider Physician Assistant
DX: M54.16 Radiculopathy, lumbar region (principal)
CPT/HCPCS: 80305

== ENCOUNTER → 2023-03-20 11:32 | Outpatient (POV) | payer OTHER, SELFPAY ==
[2023-03-20 11:35] VITALS: BP 115/80; PULSE 83; RESP 20; BMI 30.2
--- NOTE | 2023-03-20 11:48 | A.OFFVIS_ITS ---
[facility] Pain Management SOAP Note Subjective:: Patient is a pleasant 53-year-old female who presents today for follow-up of right transforaminal epidural steroid injection L5-S1 on 03/05/2023. We are currently treating the patient for degenerative disc disease of lumbar spine with lumbar radiculopathy symptoms, lumbar nerve root impingement. Today she rates her pain a 2 out of 10. Patient states that she has at least had 40% improvement or more following this injection and feels like it is still continuing to provide additional relief. Patient states she has been able to move around easier with decreased pain and that she does not have a limp like what she did prior. She does state that the pain is more tolerable. She is currently managed with [place] 5 mg 3 times a day from her primary care doctor and that she has discontinued her gabapentin that she was previously on. Her Tom is [id number]. Its been reviewed and appropriate. Review of Systems: General: No recent weight changes, no fever, no sleep disturbances Respiratory: No cough, no shortness of air, no recurring pulmonary infections Cardiovascular/peripheral vascular: No chest pain, no palpitations, no edema, no shortness of breath Gastrointestinal: No new onset incontinence, normal bowel movements reported Genitourinary: No new onset incontinence Musculoskeletal: Low back pain, right leg pain Psychiatric: [Normal mood/affect] Neurological: [Denies weakness in extremities], [denies balance issues] Objective:: Physical Exam: General: Alert and oriented x3, no acute distress, pleasant and cooperative Lungs: Respirations even and unlabored, symmetrical chest expansion Eyes: PERRL Musculoskeletal: Flexion and extension of lumbar [spine] somewhat guarded secondary to pain, [antalgic gait noted] Neurological: Speech clear, no gross sensory deficit Assessment:: Degenerative disc disease of lumbar spine with lumbar radiculopathy symptoms, nerve root impingement, right leg pain Plan:: Patient has had significant improvement following her right transforaminal epidural steroid injection and does not require any additional injective therapy at this time. Patient will return to clinic in 1 month for reevaluation of symptoms and plan of care. Patient has been instructed to contact the clinic with any concerns before the next appointment. Dr. Rizzo has reviewed this note and agrees with this plan of care. This note was dictated using voice recognition software and make contain errors or omissions. [facility] Disclaimer: The information contained in this section may have been updated after the patient was seen, as this information can be updated by other users. Medical History Lower extremity pain Lumbar nerve root impingement Family History Other No significant family history Social History Smoking Status: Current every day smoker tobacco type: cigarettes packs per day: 10 alcohol intake: never substance use type: denies use current occupational status: other Travel in the last 8 weeks: None household members: family housing: apartment
== END ==
PROVIDERS: PCP Physician Assistant; Visit Provider Nurse Practitioner Family
DX: M51.16 Intervertebral disc disorders with radiculopathy, lumbar region (principal); G54.9 Nerve root and plexus disorder, unspecified; M79.604 Pain in right leg
CPT/HCPCS: 99212; G0463

== ENCOUNTER → 2023-04-18 09:43 | Outpatient (POV) | payer OTHER, SELFPAY ==
--- NOTE | 2023-04-18 09:51 | A.OFFVIS_ITS ---
[facility] Pain Management SOAP Note Subjective:: Patient is a pleasant 53-year-old female who presents today for 1 month follow- up. We are currently treating the patient for degenerative disc disease of the lumbar spine with lumbar radiculopathy symptoms, lumbar nerve root impingement. Today she rates her pain a 3 out of 10. Patient denies any new trauma or injury. She states she continues to do well from her previous right transforaminal epidural steroid injection L5-S1 from back in the middle of February. Patient does state that she is continued to have improvement of at least 50% and states that on occasion when she has worsening pain she is able to take one of her pain pills and it does bring it down to a manageable level. Patient does state overall she still feels much more functional following the injection. She is currently managed on [place] 5 mg 3 times a day from her primary care doctor. Her Tom is [id number]. Its been reviewed and appropriate. Review of Systems: General: No recent weight changes, no fever, no sleep disturbances Respiratory: No cough, no shortness of air, no recurring pulmonary infections Cardiovascular/peripheral vascular: No chest pain, no palpitations, no edema, no shortness of breath Gastrointestinal: No new onset incontinence, normal bowel movements reported Genitourinary: No new onset incontinence Musculoskeletal: Low back pain Psychiatric: [Normal mood/affect] Neurological: [Denies weakness in extremities], [denies balance issues] Objective:: Physical Exam: General: Alert and oriented x3, no acute distress, pleasant and cooperative Lungs: Respirations even and unlabored, symmetrical chest expansion Eyes: PERRL Musculoskeletal: Flexion and extension of lumbar [spine] somewhat guarded secondary to pain, [antalgic gait noted] Neurological: Speech clear, no gross sensory deficit Assessment:: Degenerative disc disease of lumbar spine with lumbar radiculopathy symptoms, lumbar nerve root impingement Plan:: Patient continues to get significant improvement following her transforaminal epidural steroid injection and does not require any additional injective therapy at this time. Patient will return to clinic in 3 months for reevaluation of symptoms and plan of care. Patient has been instructed to contact the clinic with any concerns before the next appointment. Dr. Rizzo has reviewed this note and agrees with this plan of care. This note was dictated using voice recognition software and make contain errors or omissions. [facility] Disclaimer: The information contained in this section may have been updated after the patient was seen, as this information can be updated by other users. Medical History Lower extremity pain Lumbar nerve root impingement Family History Other No significant family history Social History Smoking Status: Current every day smoker tobacco type: cigarettes packs per day: 10 alcohol intake: never substance use type: denies use current occupational status: other Travel in the last 8 weeks: None household members: family housing: apartment
[2023-04-18 10:35] VITALS: BP 132/81; PULSE 78; RESP 18; O2SAT 97; BMI 30.2
== END ==
PROVIDERS: PCP Physician Assistant; Visit Provider Nurse Practitioner Family
DX: M51.16 Intervertebral disc disorders with radiculopathy, lumbar region (principal); G54.4 Lumbosacral root disorders, not elsewhere classified
CPT/HCPCS: 99212; G0463

== ENCOUNTER → 2023-07-17 09:45 | Outpatient (POV) | payer OTHER, SELFPAY ==
--- NOTE | 2023-07-17 09:46 | EXP.PAIN.SOA ---
[facility] Pain Management SOAP Note Subjective:: Patient is a pleasant 53-year-old female who presents today for 3-month follow-up. We are currently treating the patient for degenerative disc disease of lumbar spine with lumbar radiculopathy symptoms, lumbar nerve root impingement. Today she rates her pain a 5 out of 10. Patient states she started having more pain in and around her right hip and describes it as an aching, throbbing sensation with some numbness. She states the pain does interfere with her ability perform activities of daily living such as cooking and cleaning. She has continued to try [id number] medications along with heat and ice and topicals with no additional relief. Patient does try to be very active and does a home exercise regimen with minimal improvement. Patient states she has a history of sciatica issues. Patient previously had a transforaminal epidural at L4-L5 back in February that did provide approximately 50% relief and lasted the last several months. She is currently managed with [place] 5 mg 3 times a day from her primary care doctor. She denies any side effects from this medication. Her Tom has been reviewed and appropriate. Review of Systems: General: No recent weight changes, no fever, no sleep disturbances Respiratory: No cough, no shortness of air, no recurring pulmonary infections Cardiovascular/peripheral vascular: No chest pain, no palpitations, no edema, no shortness of breath Gastrointestinal: No new onset incontinence, normal bowel movements reported Genitourinary: No new onset incontinence Musculoskeletal: Low back pain, right hip pain Psychiatric: [Normal mood/affect] Neurological: [Denies weakness in extremities], [denies balance issues] Objective:: Physical Exam: General: Alert and oriented x3, no acute distress, pleasant and cooperative Lungs: Respirations even and unlabored, symmetrical chest expansion Eyes: PERRL Musculoskeletal: Flexion and extension of lumbar [spine] somewhat guarded secondary to pain, [antalgic gait noted] extreme point tenderness along right SI and right greater trochanteric bursa with positive right Reji's, Ottoniel's, Gaenslen's, compression and distraction exam Neurological: Speech clear, no gross sensory deficit Assessment:: Degenerative disc disease of lumbar spine with lumbar radiculopathy symptoms, lumbar nerve root impingement, right sacroiliitis, right greater trochanteric bursitis Plan:: Patient is experiencing worsening pain in her low back along the right hip with extreme point tenderness at her right SI and right greater trochanteric bursa. Patient also had a positive right Reji's, Ottoniel's, Gaenslen's, compression and distraction exam. I have discussed with the patient that she may benefit from a right SI and right greater trochanteric bursa injection. Risk and benefits of these injections were explained to the patient and she would like to proceed forward with this plan of care. Patient will be scheduled for a right SI and right greater trochanteric bursa injection under fluoroscopy. Patient has been instructed to contact the clinic with any concerns before the next appointment. Dr. Rizzo has reviewed this note and agrees with this plan of care. This note was dictated using voice recognition software and make contain errors or omissions. [facility] Disclaimer: The information contained in this section may have been updated after the patient was seen, as this information can be updated by other users. Medical History Lower extremity pain Lumbar nerve root impingement Family History Other No significant family history Social History Smoking Status: Current every day smoker tobacco type: cigarettes packs per day: 10 alcohol intake: never substance use type: denies use current occupational status: other Travel
[2023-07-17 10:20] VITALS: BP 149/86; PULSE 92; RESP 18; O2SAT 95; BMI 30.2
== END ==
PROVIDERS: PCP Physician Assistant; Visit Provider Nurse Practitioner Family
DX: M51.16 Intervertebral disc disorders with radiculopathy, lumbar region (principal); G54.4 Lumbosacral root disorders, not elsewhere classified; M46.1 Sacroiliitis, not elsewhere classified; M70.61 Trochanteric bursitis, right hip
CPT/HCPCS: 99212; G0463

== ENCOUNTER 2023-08-06 11:54 | Day surgery (SDC) | payer OTHER, SELFPAY ==
[2023-08-06 11:55] VITALS: BP 124/81; PULSE 95; RESP 16; O2SAT 96; BMI 30.2
[2023-08-06 12:01] VITALS: BP 161/86; PULSE 92; O2SAT 95
[2023-08-06 12:06] VITALS: BP 161/86; PULSE 99; O2SAT 96
[2023-08-06 12:07] VITALS: BP 149/83; PULSE 88; RESP 16; O2SAT 96
--- NOTE | 2023-08-06 12:09 | EXP.PAIN.PRO ---
Procedure Date: 08/06/23 Time: 12:00 Anesthesiologist:: Haile Carmona CRNA Complications:: None Pre-procedure Diagnosis:: Right sacroiliitis. Post-procedure Diagnosis:: Same. Indications for Procedure:: Patient is a pleasant 53-year-old female comes our clinic today for right sacroiliac joint injection of cortisone. Patient reports right low lumbar back pain as well as right posterior hip pain. Patient describes the pain as constant, dull, aching. Patient reports difficulty transitioning from sitting to standing. She rates her pain 7/10. Procedure Details:: Procedure: Right sacroliliac joint injection under fluoroscopy Informed consent was obtained and the risk and benefits of the procedure were explained to the patient.~ The patient was taken to the procedure room and noninvasive monitors were placed including noninvasive blood pressure cuff and pulse oximeter.~ The patient was placed prone on the procedure table.~ The~ right hip was cleansed using Betadine as a cleansing solution.~ C-arm fluorosocpy was used to view the right SI joint.~ The skin and subcutaneous tissues were anesthetized using Lidocaine 1.5% and a 25-gauge needle.~ After this, a 22-gauge spinal needle was inserted under fluoroscopic guidance into the inferior aspect of the right SI joint.~ Omnipaque dye was injected and a good spread was seen throughout the joint.~ After this, approximately 5 mL of bupivacaine 0.25% and Depo-Medrol 40 mg was incrementally injected into the sacroiliac joint.~ The patient tolerated the procedure well with no complications.~ The patient was observed in the Pain Clinic, then discharged home neurologically intact.~ Plan and Disposition:: Patient was discharged without incident.
== END 2023-08-06 12:07 | disposition home or self-care (01) ==
PROVIDERS: PCP Physician Assistant; Visit Provider Nurse Anesthetist, Certified Registered
DX: M46.1 Sacroiliitis, not elsewhere classified (principal)
CPT/HCPCS: 27096; G0260; J1040

== ENCOUNTER 2023-08-09 10:00 | Day surgery (SDC) | payer OTHER, SELFPAY ==
[2023-08-09 10:27] VITALS: BP 139/83; PULSE 88; RESP 16; TEMP 36.3; O2SAT 96; BMI 30.2
[2023-08-09 10:46] VITALS: BP 156/86; PULSE 89; O2SAT 97
[2023-08-09 10:53] VITALS: BP 156/86; PULSE 89; O2SAT 97
[2023-08-09 10:57] VITALS: BP 140/89; PULSE 77; RESP 16; O2SAT 96
--- NOTE | 2023-08-09 10:59 | EXP.PAIN.PRO ---
Procedure Date: 08/09/23 Time: 10:30 Anesthesiologist:: Haile Carmona CRNA Complications:: None Pre-procedure Diagnosis:: Chronic right hip pain. Right trochanteric bursitis. Post-procedure Diagnosis:: Same. Indications for Procedure:: Patient is a very pleasant 53-year-old female comes our clinic today for a right trochanteric bursa injection. Patient has right lateral hip pain she describes as constant, dull, achy. Patient has extreme point tenderness over the right trochanteric bursa. She rates her pain 8/10. Procedure Details:: C-arm fluoroscopy was used to view the left greater trochanter.~ The skin and subcutaneous tissues overlying the right greater trochanter were anesthetized using lidocaine, 1.5% and a 25-gauge needle.~ After this, a 22-gauge spinal needle was inserted and advanced until it contacted the right greater trochanter.~ Dye was injected and good spread was seen throughout the right trochanteric bursa. After this, approximately 5 mL of bupivacaine, 0.25% and Depo-Medrol, 40 mg was incrementally injected into the right right trochanteric bursa.~ The patient tolerated the procedure well with no complications. Plan and Disposition:: Patient was discharged without incident.
== END 2023-08-09 10:57 | disposition home or self-care (01) ==
PROVIDERS: PCP Physician Assistant; Visit Provider Nurse Anesthetist, Certified Registered
DX: M70.61 Trochanteric bursitis, right hip (principal); M25.551 Pain in right hip; G89.29 Other chronic pain
CPT/HCPCS: 20610; J1040

== ENCOUNTER 2023-09-03 11:38 | Outpatient (CLI) | payer OTHER, SELFPAY ==
[2023-09-03 14:45] LABS: Amphetamine/Metha Screen,Urine Negative ng/ml (<1000); Barbiturates Screen,Urine Negative ng/ml (<200); Benzodiazepines Screen,Urine Negative ng/ml (<200); Cannabinoid Screen,Urine Negative ng/ml (<50); Cocaine Screen,Urine Negative ng/ml (<300); Methadone Screen,Urine Negative ng/ml (<300); Opiate Screen,Urine Negative ng/ml (<300); Phencyclidine Screen,Urine Negative ng/ml (<25)
== END 2023-09-03 23:59 ==
LOC: LAB.DROPOF 11:39
PROVIDERS: PCP Physician Assistant; Visit Provider Physician Assistant
DX: M54.50 Low back pain, unspecified (principal)
CPT/HCPCS: 80307

== ENCOUNTER → 2023-09-05 08:56 | Outpatient (POV) | payer OTHER, SELFPAY ==
--- NOTE | 2023-09-05 09:09 | A.OFFVIS_ITS ---
[facility] Pain Management SOAP Note Subjective:: Patient is a pleasant 53-year-old female who presents today for follow-up of right bursa injection on 08/09/2023. We are currently treating the patient for degenerative disc disease of lumbar spine with lumbar radiculopathy symptoms, lumbar nerve root impingement, greater trochanteric bursitis. Today she rates her pain a 7 out of 10. She denies any new trauma or injury from our last visit. She states that she did have some improvement following this injection however it only lasted a few hours and then she was back to her baseline. Patient does state that she has worsening pain in her low back that does radiate down her entire right leg to about her knee. Patient does state this is an aching, throbbing sensation with numbness and tingling. She does state the pain interferes with her ability perform activities of daily living such as cooking or cleaning or even simple sleeping at night. Patient states that she has to frequently change positions multiple times due to the pain. Patient did previously have a transforaminal epidural back in February that did provide more than 50% relief lasting several months. She is currently managed with [place] 5 mg 3 times a day from her primary care doctor. She denies any side effects from this medication. Her Tom has been reviewed and appropriate. Review of Systems: General: No recent weight changes, no fever, no sleep disturbances Respiratory: No cough, no shortness of air, no recurring pulmonary infections Cardiovascular/peripheral vascular: No chest pain, no palpitations, no edema, no shortness of breath Gastrointestinal: No new onset incontinence, normal bowel movements reported Genitourinary: No new onset incontinence Musculoskeletal: Low back pain, right leg pain Psychiatric: [Normal mood/affect] Neurological: [Denies weakness in extremities], [denies balance issues] Objective:: Physical Exam: General: Alert and oriented x3, no acute distress, pleasant and cooperative Lungs: Respirations even and unlabored, symmetrical chest expansion Eyes: PERRL Musculoskeletal: Flexion and extension of lumbar [spine] somewhat guarded secondary to pain, [antalgic gait noted] positive right leg raise with decreased sensation to light touch and decreased reflexes Neurological: Speech clear, no gross sensory deficit Assessment:: Degenerative disc disease of lumbar spine with lumbar radiculopathy symptoms, lumbar nerve root impingement, greater trochanteric bursitis Plan:: Patient is experiencing worsening pain in her low back with radiating symptoms down her right leg. Patient did have a positive right leg raise with decreased sensation to light touch and decreased reflexes during today's exam. I have discussed with the patient that she may benefit from repeat transforaminal epidural steroid injection. Risk and benefits were discussed with the patient and she would like to proceed forward with this plan of care. Patient previously had this injection with at least 50% improvement lasting several months back in February. I will also order the patient a compounded cream. Patient will be scheduled for a transforaminal epidural steroid injection L4-L5 and L5-S1 right-sided. This injection will be done under fluoroscopic guidance to confirm accuracy and placement. Patient has been instructed to contact the clinic with any concerns before the next appointment. Dr. Rizzo has reviewed this note and agrees with this plan of care. This note was dictated using voice recognition software and make contain errors or omissions. [facility] Disclaimer: The information contained in this section may have been updated after the patient was seen, as this information can be updated by other users. Medical History Lower extremity pain Lumbar nerve root impingement Family History Other No significant family history Social History Smoking Status: Current every day smoker tobacco type: cigarettes packs per day: 10 alcohol intake: never substance use type: denies use current occupational status: other Travel in the last 8 weeks: None household members: family housing: apartment
[2023-09-05 09:43] VITALS: BP 134/79; PULSE 91; RESP 18; O2SAT 96; BMI 30.2
== END ==
LOC: SC.PAIN 08:57
PROVIDERS: PCP Physician Assistant; Visit Provider Nurse Practitioner Family
DX: M51.16 Intervertebral disc disorders with radiculopathy, lumbar region (principal); G54.4 Lumbosacral root disorders, not elsewhere classified; M70.60 Trochanteric bursitis, unspecified hip
CPT/HCPCS: 99212; G0463

== ENCOUNTER 2023-09-17 13:37 | Day surgery (SDC) | payer OTHER, SELFPAY ==
[2023-09-17 13:43] VITALS: BP 148/82; PULSE 85; RESP 16; TEMP 36.4; O2SAT 99; BMI 30.2
--- NOTE | 2023-09-17 13:48 | EXP.PAIN.PRO ---
Procedure Date: 09/17/23 Time: 14:00 Anesthesiologist:: Haile Carmona CRNA Complications:: None Pre-procedure Diagnosis:: Degenerative disc lumbar spine multilevels. Lumbar radiculopathy. Lumbar spondylosis. Multilevel lumbar disc bulge. Post-procedure Diagnosis:: Same. Indications for Procedure:: Patient is a very pleasant 53-year-old female comes our clinic today for right L4-5 and L5-S1 transforaminal epidural steroid injection. Patient reports low back pain she describes as constant, dull, aching. Also, right hip and leg radicular symptoms. Patient rates her pain 7/10. Procedure Details:: Details of the procedure were explained to the patient. The patient was taken the procedure room placed in the prone position. The area of the lumbar spine was cleansed using chlorhexidine as a cleansing solution. At this time using fluoroscopy guidance markers were placed on the right lateral border of the L4 and L5 vertebral body. The skin and subcutaneous tissue was anesthetized using 1% lidocaine and 25-gauge needle. At this time using a 22-gauge 3-1/2 inch spinal needle the right upper one third of the L4-5 foramen was accessed. The same was done at the right L5-S1 foramen. Needle positions were confirmed and a lateral view using fluoroscopy and contrast dye. At this time 1 cc of 1% lidocaine +20 mg of Depo-Medrol was injected at each level after negative aspiration. [place] were removed. Band-Aid applied. Patient tolerated the procedure without difficulty. There are no complications. Plan and Disposition:: Patient was discharged without incident.
[2023-09-17 13:49] VITALS: BP 166/94; PULSE 92; RESP 18; O2SAT 99
[2023-09-17] MEDS: LIDOCAINE 1% 5ML PF VIAL 5 ML (13:49)
[2023-09-17 13:51] VITALS: BP 166/94; PULSE 92; RESP 18; O2SAT 99
[2023-09-17 13:55] VITALS: BP 170/87; PULSE 78; RESP 16; O2SAT 99
== END 2023-09-17 13:55 | disposition home or self-care (01) ==
PROVIDERS: PCP Physician Assistant; Visit Provider Nurse Anesthetist, Certified Registered
DX: M51.16 Intervertebral disc disorders with radiculopathy, lumbar region (principal); M47.26 Other spondylosis with radiculopathy, lumbar region; M51.26 Other intervertebral disc displacement, lumbar region
CPT/HCPCS: 64483; 64484; J1030

== ENCOUNTER 2023-09-17 20:25 | Outpatient (CLI) | payer OTHER, SELFPAY ==
[2023-09-17 20:15] LABS: Amphetamine/Metha Screen,Urine Negative ng/ml (<1000); Barbiturates Screen,Urine Negative ng/ml (<200)
[2023-09-17 20:16] LABS: Benzodiazepines Screen,Urine Negative ng/ml (<200)
[2023-09-17 20:17] LABS: Cannabinoid Screen,Urine Negative ng/ml (<50); Cocaine Screen,Urine Negative ng/ml (<300)
[2023-09-17 20:18] LABS: Methadone Screen,Urine Negative ng/ml (<300); Opiate Screen,Urine Positive ng/ml (<300)
[2023-09-17 20:19] LABS: Phencyclidine Screen,Urine Negative ng/ml (<25)
== END 2023-09-17 23:59 ==
LOC: LAB.DROPOF 20:25
PROVIDERS: PCP Physician Assistant; Visit Provider Physician Assistant
DX: M54.50 Low back pain, unspecified (principal); Z79.899 Other long term (current) drug therapy
CPT/HCPCS: 80307

== ENCOUNTER → 2023-10-14 10:53 | Outpatient (POV) | payer OTHER, SELFPAY ==
[2023-10-14 11:19] VITALS: BP 137/86; PULSE 80; RESP 18; O2SAT 96; BMI 30.2
--- NOTE | 2023-10-14 11:39 | A.OFFVIS_ITS ---
[facility] Pain Management SOAP Note Subjective:: Patient is a pleasant 53-year-old female who presents today for follow-up of right transforaminal epidural steroid injection on 09/17/2023. We are currently treating the patient for degenerative disc disease of lumbar spine with lumbar radiculopathy symptoms, lumbar nerve root impingement, greater trochanteric bursitis. Today she rates her pain a 4 out of 10. Patient denies any new trauma or injury. She does state that she has had at least 30 to 50% improvement following this injection. She states that she still feels like it is still continue to provide additional relief. She states she has been able to increase her activity with decreased pain. She states that her walking is even better and more manageable. She does state that the pain is still present but it is not as severe. She is currently managed with [place] 5 mg 3 times a day from her primary care doctor. Her Tom has been reviewed and is appropriate. Review of Systems: General: No recent weight changes, no fever, no sleep disturbances Respiratory: No cough, no shortness of air, no recurring pulmonary infections Cardiovascular/peripheral vascular: No chest pain, no palpitations, no edema, no shortness of breath Gastrointestinal: No new onset incontinence, normal bowel movements reported Genitourinary: No new onset incontinence Musculoskeletal: Low back pain Psychiatric: [Normal mood/affect] Neurological: [Denies weakness in extremities], [denies balance issues] Objective:: Physical Exam: General: Alert and oriented x3, no acute distress, pleasant and cooperative Lungs: Respirations even and unlabored, symmetrical chest expansion Eyes: PERRL Musculoskeletal: Flexion and extension of lumbar [spine] somewhat guarded secondary to pain, [antalgic gait noted] Neurological: Speech clear, no gross sensory deficit Assessment:: Degenerative disc disease of lumbar spine with lumbar radiculopathy symptoms, left large nerve root impingement, greater trochanteric bursitis Plan:: Patient has had significant improvement to make her pain more manageable following her transforaminal injection and does not require any additional injection therapy. Patient will return to clinic in 1 month for rehab evaluation of symptoms and plan of care. Patient has been instructed to contact the clinic with any concerns before the next appointment. Dr. Rizzo has reviewed this note and agrees with this plan of care. This note was dictated using voice recognition software and make contain errors or omissions. [facility] Disclaimer: The information contained in this section may have been updated after the patient was seen, as this information can be updated by other users. Medical History Lower extremity pain Lumbar nerve root impingement Family History Other No significant family history Social History Smoking Status: Current every day smoker tobacco type: cigarettes packs per day: 10 alcohol intake: never substance use type: denies use current occupational status: other Travel in the last 8 weeks: None household members: family housing: apartment
== END ==
LOC: SC.PAIN 10:53
PROVIDERS: PCP Physician Assistant; Visit Provider Nurse Practitioner Family
DX: M51.16 Intervertebral disc disorders with radiculopathy, lumbar region (principal); M70.60 Trochanteric bursitis, unspecified hip
CPT/HCPCS: 99212; G0463

== ENCOUNTER 2023-11-18 15:01 | Outpatient (POV) | payer OTHER, SELFPAY ==
--- NOTE | 2023-11-18 15:04 | EXP.PAIN.SOA ---
[facility] Pain Management SOAP Note Subjective:: Patient is a pleasant 53-year-old female who presents today for follow-up. We are currently treating the patient for degenerative disc disease of lumbar spine with lumbar radiculopathy symptoms, lumbar nerve root impingement, greater trochanteric bursitis. Today she rates her pain a 4 out of 10. Patient denies any new trauma or injury. At last visit she was still having overall improvement with the transforaminal injection. She does state that the pain is still present but it is not as severe. She states that she did not the yard yesterday so she has a little bit more pain today but overall it is still manageable. Patient states that she does notice most of her pain is more noticeable at bedtime. She states that often times that she gets up frequently due to not being able to sleep due to the pain. She is currently managed with [place] 5 mg 3 times a day from her PCP. Her Tom has been reviewed and is appropriate. Review of Systems: General: No recent weight changes, no fever, no sleep disturbances Respiratory: No cough, no shortness of air, no recurring pulmonary infections Cardiovascular/peripheral vascular: No chest pain, no palpitations, no edema, no shortness of breath Gastrointestinal: No new onset incontinence, normal bowel movements reported Genitourinary: No new onset incontinence Musculoskeletal: Low back pain Psychiatric: [Normal mood/affect] Neurological: [Denies weakness in extremities], [denies balance issues] Objective:: Physical Exam: General: Alert and oriented x3, no acute distress, pleasant and cooperative Lungs: Respirations even and unlabored, symmetrical chest expansion Eyes: PERRL Musculoskeletal: Flexion and extension of lumbar [spine] somewhat guarded secondary to pain, [antalgic gait noted] Neurological: Speech clear, no gross sensory deficit Assessment:: degenerative disc disease of lumbar spine with lumbar radiculopathy symptoms, lumbar nerve root impingement, greater trochanteric bursitis Plan:: Patient is still getting some improvement from her prior injection. I have discussed with the patient that she may benefit from adding a muscle relaxer at bedtime to see if it can help in her overall low back pain. I will send in a prescription of tizanidine 4 mg at bedtime and provide a 2-week supply of this medication. Patient is scheduled to start her physical therapy this week and we will follow-up on her progress related to that. Patient will return to clinic in 1 month for reevaluation of symptoms and plan of care. Patient has been instructed to contact the clinic with any concerns before the next appointment. Dr. Rizzo has reviewed this note and agrees with this plan of care. This note was dictated using voice recognition software and make contain errors or omissions. [facility] Disclaimer: The information contained in this section may have been updated after the patient was seen, as this information can be updated by other users. Medical History Lower extremity pain Lumbar nerve root impingement Family History Other No significant family history Social History Smoking Status: Current every day smoker tobacco type: cigarettes packs per day: 10 alcohol intake: never substance use type: denies use current occupational status: other Travel in the last 8 weeks: None household members: family housing: apartment
[2023-11-18 15:24] VITALS: BP 126/81; PULSE 82; RESP 18; O2SAT 96; BMI 32.9
== END 2023-11-18 23:59 | disposition home or self-care (01) ==
PROVIDERS: PCP Physician Assistant; Visit Provider Nurse Practitioner Family
DX: M51.16 Intervertebral disc disorders with radiculopathy, lumbar region (principal); M70.60 Trochanteric bursitis, unspecified hip
CPT/HCPCS: 99212; G0463

== ENCOUNTER 2023-12-19 13:53 | Outpatient (POV) | payer OTHER, SELFPAY ==
[2023-12-19 13:59] VITALS: BP 116/69; PULSE 86; RESP 16; O2SAT 96; BMI 32.0
--- NOTE | 2023-12-19 14:12 | A.OFFVIS_ITS ---
[facility] Pain Management SOAP Note Subjective:: Patient is a pleasant 53-year-old female who presents today for 2-week follow- up. Today she rates her pain a 6 out of 10. Patient denies any new injury or trauma. She does state that last night all of a sudden she did start to have more sacroiliac joint pain. She states right now it is just a achy sensation and has not gotten severe. Patient states that she knows its there but it is still manageable. Patient has had injections in the past that do provide improvement. Patient is still currently going to physical therapy and states this is helping some. Patient is prescribed [place] from her primary care provider and at our last visit did prescribe tizanidine 4 mg at bedtime. She s tates that this did really help however she does not need refills at this time. Her Tom has been reviewed and is appropriate. Review of Systems: General: No recent weight changes, no fever, no sleep disturbances Respiratory: No cough, no shortness of air, no recurring pulmonary infections Cardiovascular/peripheral vascular: No chest pain, no palpitations, no edema, no shortness of breath Gastrointestinal: No new onset incontinence, normal bowel movements reported Genitourinary: No new onset incontinence Musculoskeletal: Low back pain, bilateral hip pain Psychiatric: [Normal mood/affect] Neurological: [Denies weakness in extremities], [denies balance issues] Objective:: Physical Exam: General: Alert and oriented x3, no acute distress, pleasant and cooperative Lungs: Respirations even and unlabored, symmetrical chest expansion Eyes: PERRL Musculoskeletal: Flexion and extension of lumbar [spine] somewhat guarded secondary to pain, [antalgic gait noted] point tenderness along bilateral SIs with positive bilateral Reji's, Ottoniel's, Gaenslen's, compression and distraction exam Neurological: Speech clear, no gross sensory deficit Assessment:: Degenerative disc disease of lumbar spine with lumbar radiculopathy symptoms, lumbar nerve root impingement, greater trochanteric bursitis, sacroiliitis Plan:: I have discussed with the patient due to her point tenderness along her bilateral SIs and positive bilateral Reji's, Ottoniel's, Gaenslen's, compression and distraction exam if this pain does can continue in the future that she may benefit from bilateral SI injections at a later date. We will follow-up at her upcoming visit. I have also counseled the patient since she does not need refills currently on her tizanidine if between now and her next visit she does require additional refill she can call and leave me a message and I will send an electronic prescription. Patient will return to clinic in 1 month for reevaluation of symptoms and plan of care. Patient has been instructed to contact the clinic with any concerns before the next appointment. Dr. Rizzo has reviewed this note and agrees with this plan of care. This note was dictated using voice recognition software and make contain errors or omissions. [facility] Disclaimer: The information contained in this section may have been updated after the patient was seen, as this information can be updated by other users. Medical History Lower extremity pain Lumbar nerve root impingement Family History Other No significant family history Social History Smoking Status: Current every day smoker tobacco type: cigarettes packs per day: 10 alcohol intake: never substance use type: denies use current occupational status: other Travel in the last 8 weeks: None household members: family housing: apartment
== END 2023-12-19 23:59 | disposition home or self-care (01) ==
LOC: SC.PAIN 13:53
PROVIDERS: PCP Physician Assistant; Visit Provider Nurse Practitioner Family
DX: M51.16 Intervertebral disc disorders with radiculopathy, lumbar region (principal); M70.60 Trochanteric bursitis, unspecified hip; M46.1 Sacroiliitis, not elsewhere classified
CPT/HCPCS: 99212; G0463

== ENCOUNTER 2024-01-13 15:51 | Outpatient (CLI) | payer OTHER, SELFPAY ==
--- NOTE | 2024-01-13 15:52 | MM_ITS ---
PROCEDURE INFORMATION: Exam: MG Bilateral Screening 3D Mammography Exam date and time: 01/13/2024 3:39 PM Age: 54 years old Clinical indication: Screening examination TECHNIQUE: Imaging protocol: Bilateral Screening tomosynthesis and 2D mammography including computer-aided detection (CAD) when performed. COMPARISON: 1. MG MM DIG MAMM DX UNILAT LT CAD 01/17/2023 1:54 PM 2. MG MM DIG SCREENING MAMM BI W/CAD 01/03/2023 10:00 AM FINDINGS: MAMMOGRAPHY: Breast composition: There are scattered areas of fibroglandular density. Mass: None. Architectural distortion: None. Calcifications: No suspicious calcifications. Asymmetric density: None. Skin thickening: None. Axillary adenopathy: None. IMPRESSION: No mammographic evidence of malignancy. Annual screening is recommended unless otherwise clinically indicated. ASSESSMENT: BI-RADS Category 1: Negative
== END 2024-01-13 23:59 | disposition home or self-care (01) ==
LOC: RAD 15:52
PROVIDERS: PCP Physician Assistant; Visit Provider Physician Assistant
DX: Z12.31 Encounter for screening mammogram for malignant neoplasm of breast (principal)
CPT/HCPCS: 77063; 77067

== ENCOUNTER 2024-01-15 14:05 | Outpatient (POV) | payer OTHER, SELFPAY ==
[2024-01-15 14:15] VITALS: BP 113/73; PULSE 77; RESP 16; O2SAT 96; BMI 32.0
--- NOTE | 2024-01-15 14:25 | A.OFFVIS_ITS ---
[facility] Pain Management SOAP Note Subjective:: Patient is a pleasant 54-year-old female who presents today for 1 month follow- up. Today she rates her pain a 3 out of 10. Patient denies any new trauma or injury. Patient does state overall she still is doing well. Patient states that she is scheduled for 2 more visits with physical therapy and then they are going to plan on ordering the MRI. Patient states that the PT is helping some. She is prescribed [place] from her PCP and tizanidine 4 mg at bedtime from our office. She denies any side effects from these medications. She states she does not need any refills on her muscle relaxer that she does not take it on a regular basis. Her Tom has been reviewed and is appropriate. Review of Systems: General: No recent weight changes, no fever, no sleep disturbances Respiratory: No cough, no shortness of air, no recurring pulmonary infections Cardiovascular/peripheral vascular: No chest pain, no palpitations, no edema, no shortness of breath Gastrointestinal: No new onset incontinence, normal bowel movements reported Genitourinary: No new onset incontinence Musculoskeletal: Low back pain Psychiatric: [Normal mood/affect] Neurological: [Denies weakness in extremities], [denies balance issues] Objective:: Physical Exam: General: Alert and oriented x3, no acute distress, pleasant and cooperative Lungs: Respirations even and unlabored, symmetrical chest expansion Eyes: PERRL Musculoskeletal: Flexion and extension of lumbar [spine] somewhat guarded secondary to pain, [antalgic gait noted] Neurological: Speech clear, no gross sensory deficit Assessment:: Degenerative disc disease of lumbar spine with lumbar radiculopathy symptoms, lumbar nerve root impingement, greater trochanteric bursitis, sacroiliitis Plan:: Patient continues to do well and does not require any additional interventions at this time. Patient will return to clinic in 3 months for reevaluation of symptoms and plan of care. Patient has been instructed to contact the clinic with any concerns before the next appointment. Dr. Rizzo has reviewed this note and agrees with this plan of care. This note was dictated using voice recognition software and make contain errors or omissions. [facility] Disclaimer: The information contained in this section may have been updated after the patient was seen, as this information can be updated by other users. Medical History Lumbar nerve root impingement Lower extremity pain Family History Other No significant family history Social History Smoking Status: Current every day smoker tobacco type: cigarettes packs per day: 10 alcohol intake: never substance use type: denies use current occupational status: other Travel in the last 8 weeks: None household members: family housing: apartment
== END 2024-01-15 23:59 | disposition home or self-care (01) ==
LOC: SC.PAIN 14:06
PROVIDERS: PCP Physician Assistant; Visit Provider Nurse Practitioner Family
DX: M51.16 Intervertebral disc disorders with radiculopathy, lumbar region (principal); M70.60 Trochanteric bursitis, unspecified hip; M46.1 Sacroiliitis, not elsewhere classified
CPT/HCPCS: 99212; G0463

== ENCOUNTER 2024-01-16 17:00 | Outpatient (RCR) | payer OTHER, SELFPAY ==
--- NOTE | 2023-12-25 16:28 | HMH.RHREAS ---
Rehab Reassessment Rehab OP Re-assessment Start: 11/21/23 11:43 Freq: Status: Active Protocol: Document 12/25/23 16:11 JIMMY (Rec: 12/25/23 16:28 PHORNE [id number]) E-signed By Abiel Macedo, PT Oswestry Index Section 1 Pain Intensity The pain comes and goes and is very mild Section 2 Personal Care (Washing,Dresing) my way of washing or dressing even though it causes some pain Section 3 Lifting Pain prevents me from lifting weights off the floor Section 4 Walking I have no pain when walking Section 5 Sitting Pain prevents me from sitting for more than one hour Section 6 Standing I cannot stand more than 1 hour without increasing pain Section 7 Sleeping I get pain in bed, but it does not prevent me from sleeping well Section 8 Social Life My social life is normal but increases the degree of pain Section 9 Traveling I get extra pain while traveling, but it does not compel me to seek al Section 10 Changing Degreee of Pain My pain is neither getting better or worse Score and Risk Level Oswestry Sc 14 Oswestry Risk Level Mild Disability Rehab Re-assessment Subjective Subjective Patient reports that she is doing a little bit better. I have no real problem in my back. The pain is only in my right leg now. The patient reports taht nothing seems to have gotten easier. She continues to have a lot of difficulties with walking and standing. Patient reports current pain at 5/10 and worst pain 7/10. Objective Objective Notes Lumbar ROM Flexion 50 Extension 10 (painful) B LF 15 (painful) MMT: R Hip flexion 4/5, R hip abd 4/5, R hip add 4/5, R knee ext 4-/5, r knee flexion 4-/5 , ankle df 5/5 Assessment Progress Assessment Slower Than Expected Assessment Notes Patient demonstrates very minimal progress at this point . Slight improvements in lumbar ROM and CASSANDRA score. Skilled PT remains indicated at this point. Revised Goals ST weeks 1. Patient will improve CASSANDRA score to the no disability range. 2. Pt will demonstrate lumbar AROM WNL with no pain LTG 6 weeks 1. Patient will demonstrate R LE strength at 4+/5 2. Patient will report their worst subjective pain at 4/10 Plan Plan Continue as per initial POC Frequency of Therapy 2/wk Duration of therapy 6 wks Time and Billing Re-Eval Time 10 Re-Eval Billing Units 1 PHYSICIAN CERTIFICATION: I certify the specified therapy services for Essence Justin are required, authorized, and reviewed every 30 days.
== END 2024-01-16 18:20 | disposition home or self-care (01) ==
LOC: PT 17:00
PROVIDERS: Visit Provider Physician Assistant
DX: M54.50 Low back pain, unspecified (principal); M51.36 Other intervertebral disc degeneration, lumbar region; M54.16 Radiculopathy, lumbar region
CPT/HCPCS: 97010; 97012; 97014; 97110; 97163; 97164; G0283

== ENCOUNTER 2024-02-11 17:08 | Outpatient (CLI) | payer OTHER, SELFPAY ==
--- NOTE | 2024-02-11 17:08 | MR_ITS ---
FINAL REPORT TECHNIQUE: Multiplanar MR without contrast CLINICAL HISTORY: low back pain radiating down right leg. NO INJURY OR TRAUMA COMPARISON: 09/28/2022 FINDINGS: Sagittal images show normal vertebral height. Alignment is normal. Marrow signal pattern is unremarkable. T12-L1: Unremarkable. L1-2: Unremarkable L2-3: Unremarkable L3-4: Mild diffuse disc bulge and mild facet arthropathy. Borderline central canal stenosis. Mild bilateral neural foraminal narrowing. L4-5: Moderate diffuse disc bulge and facet arthropathy. Mild central canal stenosis and mild bilateral neural foraminal narrowing. L5-S1: Mild diffuse disc bulge. Moderate right lateral canal disc protrusion compresses the right S1 nerve root, similar to previous. Mild facet arthropathy and mild bilateral neural foraminal narrowing. IMPRESSION: Stable exam with right S1 nerve root compression related to L5-S1 disc protrusion. Reviewed, Interpreted and Dictated by Juan Cantrell MD Transcribed by Ana Johnson Authenticated and [facility]
== END 2024-02-11 23:59 | disposition home or self-care (01) ==
LOC: RAD 17:08
PROVIDERS: PCP Physician Assistant; Visit Provider Physician Assistant
DX: M51.36 Other intervertebral disc degeneration, lumbar region (principal); M54.16 Radiculopathy, lumbar region
CPT/HCPCS: 72148

== ENCOUNTER 2024-04-16 10:36 | Outpatient (POV) | payer OTHER, SELFPAY ==
[2024-04-16 11:26] VITALS: BP 134/86; PULSE 82; RESP 16; O2SAT 96; BMI 32.0
--- NOTE | 2024-04-16 11:44 | EXP.PAIN.SOA ---
[facility] Disclaimer: The information contained in this section may have been updated after the patient was seen, as this information can be updated by other users. Medical History Lumbar nerve root impingement Lower extremity pain Family History Other No significant family history Social History Smoking Status: Current every day smoker tobacco type: cigarettes packs per day: 10 alcohol intake: never substance use type: denies use current occupational status: unemployed Travel in the last 8 weeks: None household members: family housing: apartment PM Subjective & Objective Subjective Subjective:: Patient is a pleasant 54-year-old female who presents today for 3-month follow-up. Today she rates her pain a 5 out of 10. Patient denies any new trauma or injury. She does state that she just started having her big toe on her right foot started hurting yesterday all of a sudden. She denies any redness or swelling. Patient is currently managed with [place] from her PCP and tizanidine 4 mg at bedtime from our office. She denies any side effects from this medication. She does state that she feels like this at least keeps her pain more manageable. Her Tom has been reviewed and is appropriate. Review of Systems: General: No recent weight changes, no fever, no sleep disturbances Respiratory: No cough, no shortness of air, no recurring pulmonary infections Cardiovascular/peripheral vascular: No chest pain, no palpitations, no edema, no shortness of breath Gastrointestinal: No new onset incontinence, normal bowel movements reported Genitourinary: No new onset incontinence Musculoskeletal: Low back pain, right big toe pain Psychiatric: [Normal mood/affect] Neurological: [Denies weakness in extremities], [denies balance issues] Pain at rest (0-10 scale): 5 Objective Objective:: Physical Exam: General: Alert and oriented x3, no acute distress, pleasant and cooperative Lungs: Respirations even and unlabored, symmetrical chest expansion Eyes: PERRL Musculoskeletal: Flexion and extension of lumbar [spine] somewhat guarded secondary to pain, [antalgic gait noted] Neurological: Speech clear, no gross sensory deficit Has patient had previous pain injection?: No Conservative treatment options previously tried: Home exercise plan Length of treatment: Longer than 6 weeks Meds Home Medications and Allergies Home Medications ?Medication ?Instructions ?Recorded ?Confirmed ?Type ibuprofen 200 mg tablet (Advil) 200 mg PO ONCE PRN Pain 04/16/18 02/26/24 History clonidine HCl 0.1 mg tablet 0.1 mg PO HS hot flashes #30 tabs 02/11/23 02/26/24 Rx atorvastatin 10 mg tablet 10 mg PO HS Cholesterol #90 tabs 09/03/23 02/26/24 Rx cholecalciferol (vitamin D3) 50 50 mcg PO DAILY Supplement #90 caps 09/03/23 02/26/24 Rx mcg (2,000 unit) capsule ergocalciferol (vitamin D2) 1,250 50,000 unit PO QWEEK Supplement 09/03/23 02/26/24 Rx mcg (50,000 unit) capsule #14 caps tizanidine 4 mg tablet (Zanaflex) 4 mg PO HS #14 tabs 11/18/23 02/26/24 Rx hydrocodone 5 mg-acetaminophen 325 1 tab PO TID PRN pain #90 tabs 12/25/23 02/26/24 Rx mg tablet hydrocodone 5 mg-acetaminophen 325 1 tab PO TID PRN pain #90 tabs 04/03/24 Rx mg tablet New Prescriptions to Start Prescriptions: Allergies Allergy/AdvReac Type Severity Reaction Status Date / Time gabapentin AdvReac Severe Chest Pain Verified 02/26/24 10:40 Assessment and Plan *Assessment and plan (1) Lumbar pain: Status: Chronic Category: Medical Code(s): M54.50 - Low back pain, unspecified Plan I will refill the patient's tizanidine and provide a 90-day supply with 1 refill. Patient was counseled to try her compounded cream on the right toe and see if that helps. I did also discussed with patient in future that it may be even the possibility of something like gout and that she may need to contact her PCP if it does not get better over the next few days in order to do some lab work and other testing. Patient acknowledges understanding. Patient will return to clinic in 6 months for reevaluation of symptoms and plan of care. Patient has been instructed to contact the clinic with any concerns before the next appointment. Dr. Rizzo has reviewed this note and agrees with this plan of care. This note was dictated using voice recognition software and make contain errors or omissions. All injections are used with Lidocaine or Bupivacaine and Depo Medrol.
== END 2024-04-16 23:59 | disposition home or self-care (01) ==
PROVIDERS: PCP Physician Assistant; Visit Provider Nurse Practitioner Family
DX: M54.50 Low back pain, unspecified (principal); G89.29 Other chronic pain; F17.210 Nicotine dependence, cigarettes, uncomplicated
CPT/HCPCS: 99212; G0463

== ENCOUNTER 2024-08-13 13:09 | Outpatient (CLI) | payer OTHER, SELFPAY ==
[2024-08-13 14:05] LABS: Alanine Aminotransferase 27 U/L (12-78); Albumin Level 4.4 g/dl (3.5-5.0); Albumin/Globulin Ratio 1.8 (1.1-1.8); Alkaline Phosphatase 85 U/L (38-126); Anion Gap 6.1 mEq/L (5-15); Aspartate Amino Transferase 26 U/L (14-36); Bilirubin,Total 0.6 mg/dl (0.2-1.3); Blood Urea Nitrogen 14 mg/dl (7-17); Calcium 9.3 mg/dl (8.4-10.2); Carbon Dioxide 30 mmol/L (22.0-30.0); Chloride 104 mmol/L (98-107); Cholesterol 154 mg/dl (140-200); Estimated Glomerular Filt Rate 87 ml/min (>60); GFR (African American) 105 ML/MIN (>60); Globulin 2.5 g/dL (1.3-3.2); Glucose 115 mg/dl (74-100); HDL Cholesterol 31 mg/dl (40-60); Potassium 4.1 mmoL/L (3.5-5.1); Sodium 136 mmol/L (136-145); Total Protein,Serum 6.9 g/dl (6.3-8.2); Triglycerides 255 mg/dl (30-150); VLDL Cholesterol 51 mg/dL (0-40)
[2024-08-13 14:17] LABS: Direct LDL Cholesterol 90.68 mg/dL (100-129)
[2024-08-13 14:23] LABS: 25-OH Vitamin D, Total 77.7 ng/mL (30-100)
[2024-08-13 14:27] LABS: Hematocrit 46.1 % (37.0-47.0); Hemoglobin 15.1 g/dL (12.2-16.2); Mean Corpuscular Volume 88.7 fl (81-99); White Blood Count 9.6 K/mm3 (4.8-10.8)
[2024-08-13 14:28] LABS: Basophils % 0.9 % (0.1-2.0); Eosinophils % 1.1 % (0.1-12.0); Lymphocytes # 2.9 K/mm3 (0.7-4.5); Lymphocytes % 29.9 % (10-50); Mean Corpuscular HGB Conc 32.8 g/dL (31.8-35.4); Mean Platelet Volume 8.8 fl (7.4-10.4); Monocytes % 4.1 % (1.7-9.3); Neutrophils # 6.1 K/mm3 (1.8-7.8); Neutrophils % 63.8 % (37.0-80.0); Platelet Count 365 K/mm3 (142-424); Red Cell Distribution Width 13.5 % (11.5-17.5)
[2024-08-13 14:29] LABS: Basophils # 0.1 K/mm3 (0-0.2); Eosinophils # 0.1 K/mm3 (0.0-0.4); Monocytes # 0.4 K/mm3 (0.1-1.0)
[2024-08-13 14:35] LABS: Thyroid Stimulating Hormone 2.33 uIU/mL (0.465-4.68)
[2024-08-13 14:45] LABS: HIV Combo NEGATIVE (Negative)
[2024-08-15 06:23] LABS: Hepatitis C Antibody Non Reactive (Non Reactive)
== END 2024-08-13 23:59 | disposition home or self-care (01) ==
LOC: LAB 13:10
PROVIDERS: PCP Physician Assistant; Visit Provider Physician Assistant
DX: E78.5 Hyperlipidemia, unspecified (principal); E55.9 Vitamin D deficiency, unspecified; Z00.00 Encounter for general adult medical examination without abnormal findings
CPT/HCPCS: 36415; 80050; 80053; 80061; 82306; 84443; 85025; 87380; 87389

== ENCOUNTER 2024-10-19 10:24 | Outpatient (POV) | payer OTHER, SELFPAY ==
[2024-10-19 10:28] VITALS: BP 106/71; PULSE 87; RESP 16; O2SAT 95; BMI 31.4
--- NOTE | 2024-10-19 10:44 | EXP.PAIN.SOA ---
[facility] Disclaimer: The information contained in this section may have been updated after the patient was seen, as this information can be updated by other users. Medical History Lumbar nerve root impingement Lower extremity pain Family History Other No significant family history Social History Smoking Status: Current every day smoker tobacco type: cigarettes packs per day: 10 alcohol intake: never substance use type: denies use current occupational status: other Travel in the last 8 weeks: None household members: family housing: apartment PM Subjective & Objective Subjective Subjective:: Patient is a pleasant 54-year-old female who presents today for 4-month follow-up. Today she rates her pain a 5 out of 10. She denies any new trauma or injury. Patient does state that she is having a little bit more back and right leg issues but does believe it is all related to the weather. Patient is currently managed with tizanidine 4 mg at bedtime and compounded cream from our office. She is requesting refills on both. Patient is also managed with Campbell from her primary care. Her Tom has been reviewed and is appropriate.\ Review of Systems: General: No recent weight changes, no fever, no sleep disturbances Respiratory: No cough, no shortness of air, no recurring pulmonary infections Cardiovascular/peripheral vascular: No chest pain, no palpitations, no edema, no shortness of breath Gastrointestinal: No new onset incontinence, normal bowel movements reported Genitourinary: No new onset incontinence Musculoskeletal: Low back pain, right leg pain Psychiatric: [Normal mood/affect] Neurological: [Denies weakness in extremities], [denies balance issues] Pain at rest (0-10 scale): 5 Objective Objective:: Physical Exam: General: Alert and oriented x3, no acute distress, pleasant and cooperative Lungs: Respirations even and unlabored, symmetrical chest expansion Eyes: PERRL Musculoskeletal: Flexion and extension of lumbar [spine] somewhat guarded secondary to pain, [antalgic gait noted] Neurological: Speech clear, no gross sensory deficit Has patient had previous pain injection?: No Conservative treatment options previously tried: Prescription medications Length of treatment: Longer than 12 weeks Meds Home Medications and Allergies Home Medications ?Medication ?Instructions ?Recorded ?Confirmed ?Type ibuprofen 200 mg tablet (Advil) 200 mg PO ONCE PRN Pain 04/16/18 10/19/24 History clonidine HCl 0.1 mg tablet 0.1 mg PO HS hot flashes #30 tabs 02/11/23 10/19/24 Rx atorvastatin 10 mg tablet 10 mg PO HS Cholesterol #90 tabs 09/03/23 10/19/24 Rx cholecalciferol (vitamin D3) 50 50 mcg PO DAILY Supplement #90 caps 09/03/23 10/19/24 Rx mcg (2,000 unit) capsule ergocalciferol (vitamin D2) 1,250 50,000 unit PO QWEEK Supplement 09/03/23 10/19/24 Rx mcg (50,000 unit) capsule #14 caps hydrocodone 5 mg-acetaminophen 325 1 tab PO TID PRN pain #90 tabs 12/25/23 10/19/24 Rx mg tablet tizanidine 4 mg tablet (Zanaflex) 4 mg PO HS #90 tabs 04/16/24 10/19/24 Rx amantadine HCl 100 mg tablet 100 mg PO DAILY 04/28/24 10/19/24 History hydrocodone 5 mg-acetaminophen 325 1 tab PO TID PRN pain #90 tabs 04/28/24 10/19/24 Rx mg tablet nystatin 100,000 unit/mL oral 10 ml PO QID 10 days #400 mL 04/28/24 10/19/24 Rx suspension New Prescriptions to Start Prescriptions: Allergies Allergy/AdvReac Type Severity Reaction Status Date / Time gabapentin AdvReac Severe Chest Pain Verified 04/28/24 10:06 Assessment and Plan *Assessment and plan (1) Degenerative disc disease, lumbar: Status: Chronic Category: Medical Code(s): M51.369 - Other intervertebral disc degeneration, lumbar region without mention of lumbar back pain or lower extremity pain (2) Lumbar radiculopathy: Status: Chronic Category: Medical Code(s): M54.16 - Radiculopathy, lumbar region Plan I will refill the patient's tizanidine and compounded cream and provide a 6-month supply of these medications. Patient will return to clinic in 6 months. Patient has been instructed to contact the clinic with any concerns before the next appointment. Dr. Rizzo has reviewed this note and agrees with this plan of care. This note was dictated using voice recognition software and make contain errors or omissions. All injections are used with Lidocaine, Bupivacaine and Depo Medrol. Occasionally urine drug screen is needed to verify patient's compliance with our office pain contract. This is ordered based off specific treatments related to chronic pain with the potential to abuse certain medications.
== END 2024-10-19 23:59 | disposition home or self-care (01) ==
PROVIDERS: PCP Physician Assistant; Visit Provider Nurse Practitioner Family
DX: M51.16 Intervertebral disc disorders with radiculopathy, lumbar region (principal); F17.210 Nicotine dependence, cigarettes, uncomplicated
CPT/HCPCS: 99212; G0463

== ENCOUNTER 2024-12-10 09:29 | Outpatient (CLI) | payer OTHER, SELFPAY ==
[2024-12-10 11:58] LABS: Occult Blood,Stool Negative (Negative)
== END 2024-12-10 23:59 | disposition home or self-care (01) ==
LOC: LAB 09:30
PROVIDERS: PCP Physician Assistant; Visit Provider Nurse Practitioner Family
DX: K64.4 Residual hemorrhoidal skin tags (principal)
CPT/HCPCS: 82272; G0328

== ENCOUNTER 2025-01-22 15:42 | Outpatient (CLI) | payer OTHER, SELFPAY ==
--- NOTE | 2025-01-22 15:44 | MM_ITS ---
PROCEDURE INFORMATION: Exam: MG Bilateral Screening 3D Mammography Exam date and time: 01/22/2025 3:52 PM Age: 55 years old Clinical indication: Screening examination. Paternal aunt had breast cancer. TECHNIQUE: Imaging protocol: Bilateral Screening tomosynthesis and 2D mammography including computer-aided detection (CAD) when performed. COMPARISON: 1. MG MM DIG SCREENING MAMM BI W/CAD 01/13/2024 3:39 PM 2. MG MM DIG MAMM DX UNILAT LT CAD 01/17/2023 1:54 PM 3. MG MM DIG SCREENING MAMM BI W/CAD 01/03/2023 10:00 AM 4. MG MM DIG SCREENING MAMM BI W/CAD 01/02/2022 10:47 AM FINDINGS: MAMMOGRAPHY: Breast composition: There are scattered areas of fibroglandular density. Mass: None. Architectural distortion: None. Calcifications: No suspicious calcifications. Asymmetric density: None. Skin thickening: None. Axillary adenopathy: None. IMPRESSION: No mammographic evidence of malignancy. Annual screening is recommended unless otherwise clinically indicated. ASSESSMENT: BI-RADS Category 1: Negative.
== END 2025-01-22 23:59 | disposition home or self-care (01) ==
LOC: RAD 15:43
PROVIDERS: PCP Physician Assistant; Visit Provider Nurse Practitioner Family
DX: Z12.31 Encounter for screening mammogram for malignant neoplasm of breast (principal); R92.323 Mammographic fibroglandular density, bilateral breasts
CPT/HCPCS: 77063; 77067

== ENCOUNTER 2025-02-10 09:49 | Outpatient (POV) | payer OTHER, SELFPAY ==
[2025-02-10 09:59] VITALS: BP 132/87; PULSE 85; RESP 14; O2SAT 96; BMI 32.0
--- NOTE | 2025-02-10 09:59 | A.OFFVIS_ITS ---
[facility] Disclaimer: The information contained in this section may have been updated after the patient was seen, as this information can be updated by other users. Medical History Lumbar nerve root impingement [address] [place] [id number] Magnetic Resonance Report Signed Patient: Essence Justin MR#: [id number] : 1970 Acct:[id number] Age/Sex: 54 / F ADM Date: 02/11/24 Loc: RAD Attending Dr: Mari TURNER Ordering Physician: Mari Conn Date of Service: 02/11/24 Procedure(s): MR lumbar spine wo con Accession Number(s): [id number] cc: Rene Cantrell MD; Mari Conn~ FINAL REPORT TECHNIQUE: Multiplanar MR without contrast CLINICAL HISTORY: low back pain radiating down right leg. NO INJURY OR TRAUMA COMPARISON: 09/28/2022 FINDINGS: Sagittal images show normal vertebral height. Alignment is normal. Marrow signal pattern is unremarkable. T12-L1: Unremarkable. L1-2: Unremarkable L2-3: Unremarkable L3-4: Mild diffuse disc bulge and mild facet arthropathy. Borderline central canal stenosis. Mild bilateral neural foraminal narrowing. L4-5: Moderate diffuse disc bulge and facet arthropathy. Mild central canal stenosis and mild bilateral neural foraminal narrowing. L5-S1: Mild diffuse disc bulge. Moderate right lateral canal disc protrusion compresses the right S1 nerve root, similar to previous. Mild facet arthropathy and mild bilateral neural foraminal narrowing. IMPRESSION: Stable exam with right S1 nerve root compression related to L5-S1 disc protrusion. Reviewed, Interpreted and Dictated by Juan Cantrell MD Transcribed by Ana Johnson Authenticated and [facility] Lower extremity pain Family History Other No significant family history Social History Smoking Status: Current every day smoker tobacco type: cigarettes packs per day: 10 alcohol intake: never substance use type: denies use current occupational status: other Travel in the last 8 weeks?: None household members: family housing: apartment PM Subjective & Objective Subjective Subjective:: Patient is a pleasant 55-year-old female who presents today for worsening pain that radiates down her entire right leg along the lateral side. She does rated pain as 6 out of 10. Patient was hoping that she get a little bit longer from the last injection but does feel like it has officially worn off. Patient has been doing more activity including painting and feel like this has aggravated some of her symptoms. Patient states the pain is interfering with her ability perform activities of daily living such as cooking and cleaning. Patient does state that it is still radiating down only the right side with numbness and tingling. Patient denies any new falls or injuries. Patient has continued conservative treatment including taking medication from our office of tizanidine 4 mg at bedtime and compounded cream along with pain medication from her primary care. Her Tom has been reviewed and is appropriate. Review of Systems: General: No recent weight changes, no fever, no sleep disturbances Respiratory: No cough, no shortness of air, no recurring pulmonary infections Cardiovascular/peripheral vascular: No chest pain, no palpitations, no edema, no shortness of breath Gastrointestinal: No new onset incontinence, normal bowel movements reported Genitourinary: No new onset incontinence Musculoskeletal: Low back pain, right leg pain Psychiatric: [Normal mood/affect] Neurological: [Denies weakness in extremities], [denies balance issues] Pain at rest (0-10 scale): 6 Objective Objective:: Physical Exam: General: Alert and oriented x3, no acute distress, pleasant and cooperative Lungs: Respirations even and unlabored, symmetrical chest expansion Eyes: PERRL Musculoskeletal: Flexion and extension of lumbar [spine] somewhat guarded secondary to pain, [antalgic gait noted] positive right leg raise with decreased sensation to light touch and decreased reflexes Neurological: Speech clear, no gross sensory deficit Has patient had previous pain injection?: No Conservative treatment options previously tried: Home exercise plan Length of treatment: Longer than 12 weeks and Prescription medications Length of treatment: Longer than 12 weeks Meds Home Medications and Allergies Home Medications ?Medication ?Instructions ?Recorded ?Confirmed ?Type ibuprofen 200 mg tablet (Advil) 200 mg PO ONCE PRN Isabelle n 04/16/18 01/24/25 History atorvastatin 10 mg tablet 10 mg PO HS Cholesterol #90 tabs 09/03/23 01/24/25 Rx cholecalciferol (vitamin D3) 50 50 mcg PO DAILY Supple ment #90 caps 09/03/23 01/24/25 Rx mcg (2,000 unit) capsule ergocalciferol (vitamin D2) 1,250 50,000 unit PO QWEEK Supplement 09/03/23 01/24/25 Rx mcg (50,000 unit) capsule #14 caps amantadine HCl 100 mg tablet 100 mg PO DAILY 04/28/24 01/24/25 History hydrocodone 5 mg-acetaminophen 325 1 tab PO TID PRN pa in #90 tabs 04/28/24 01/24/25 Rx mg tablet nystatin 100,000 unit/mL oral 10 ml PO QID 10 days #40 0 mL 04/28/24 01/24/25 Rx suspension ciprofloxacin 0.3 %-dexamethasone 4 drp otic (ear) BID 7 days #7.5 mL 12/12/24 01/24/25 Rx 0.1 % ear drops,suspension fluticasone propionate 50 1 spray intranasal DAILY #16 grams 12/12/24 01/24/25 Rx mcg/actuation nasal spray,suspension (Allergy Relief (fluticasone)) cyclobenzaprine 5 mg tablet 5 mg PO TID PRN muscle spa sm #10 01/24/25 01/24/25 Rx tabs New Prescriptions to Start Prescriptions: Allergies Allergy/AdvReac Type Severity Reaction Status Date / Time gabapentin AdvReac Severe Chest Pain Verified 01/24/25 09:58 Assessment and Plan *Assessment and plan (1) Degenerative disc disease, lumbar: Status: Chronic Category: Medical Code(s): M51.369 - Other intervertebral disc degeneration, lumbar region without mention of lumbar back pain or lower extremity pain (2) Lumbar radiculopathy: Status: Chronic Category: Medical Code(s): M54.16 - Radiculopathy, lumbar region Plan Patient is experiencing worsening pain in her low back with symptoms radiating down her entire right leg. Patient had limited range of motion of her lumbar spine along with a positive right leg raise and decreased sensation to light touch and decreased reflexes during today's exam. I have discussed with the patient that they may benefit from a transforaminal epidural steroid injection. Risk and benefits were discussed with the patient and she would like to proceed forward with this plan of care. Patient is not on any blood thinners. Patient has continued conservative treatment including oral medication, heat and ice, topicals, physical therapy in the past and at home exercising and stretching for longer than 12 weeks that was physician guided. Patient's last transforaminal epidural was in August that did provide 50% relief and has improved her function for longer than 3 months. We will schedule the patient for a repeat right transforaminal epidural steroid injection L4-L5 and L5-S1. Patient has been instructed to contact the clinic with any concerns before the next appointment. Dr. Rizzo has reviewed this note and agrees with this plan of care. This note was dictated using voice recognition software and make contain errors or omissions.
--- OUTSIDE RECORDS SUMMARY | 2025-02-10 10:00 | XMS_ITS | Continuity of Care Document ---
Author Organization [place] - [employer] [facility] Address [address] [place] [address] Assessment No assessment recorded. Plan of Treatment Reminders Order Date Submit Date Provider Last Modified By Organization Details Last Modified Time Details Appointments FOLLOW UP 30 2024 09:00A Larry Conn PA-C Not available Not available Not available Lab unlisted lab - toxassure flex 19, [id number] -P 2024 025 [facility], [address] [place] [address], [id number], 01/13/2025 00:06:55 Referral None recorded. Procedures None recorded. Surgeries None recorded. Imaging None recorded. Medication Orders Xyzal 5 mg tablet 2024 025 [facility], [address], [id number], 01/08/2025 10:11:05 Lastacaft Once Daily Relief 0.25 % eye drops 2024 025 [facility], [address], [id number], 01/08/2025 10:11:06 Patient TargetsNo targets recorded. Patient Instructions Encounter Date Encounter Id Patient Instructions Last Modified By Organization Details Last Modified Time 01/08/2025 [id number] seasonal allergies: care instructions [email or web address] Not available 01/08/2025 10:10:47 Reason for Referral None Reported. Problems Name Problem SNOMED Code Status Onset Date Resolution Date Notes Provider Name and Address Organization Details Recorded Time Hyperlipidemia 11067233 Active 2023 YUE Maradiaga [address] [place] [address], [phone], [employer] 4 15:14:11 Vitamin D deficiency 49163916 Active 2023 YUE Maradiaga [address] [place] [address], [phone] 8, [employer] 4 15:14:16 Displacement of lumbar intervertebral disc without myelopathy 04335319 Active 2023 YUE Maradiaga [address] [place] [address], [phone] 8, [employer] 4 15:14:07 Seasonal allergic rhinitis 096614393 Active 2024 YUE Maradiaga [address] [place] [address], [phone] 8, [employer] 5 10:10:00 Problem Notes None recorded. Procedures Surgical History Date Name Laterality Status Provider Name and Address Organization Details Recorded Time 01/13/20 24 Most Recent Mammogram completed [employer] 10/26/2024 15:22:48 Appendectomy completed [employer] 01/08/2025 09:46:45 Imaging Results None recorded. Procedure Notes None recorded. Medical Equipment None Reported. Allergies No known drug allergies Medications Name Sig Start Date Stop Date Status Note LastModified by Organization Details LastModified Time vitamin d3 (saeid) 50mcg cap TAKE 1 CAPSULE BY MOUTH ONCE DAILY 08/13 completed Not Available Not Available Not Available amantadine HCl 100 mg tablet 10/26 completed Not Available Not Available Not Available nystatin 100,000 unit/mL oral suspension SWISH & SWALLOW 10 ML BY MOUTH 4 TIMES DAILY FOR 10 DAYS 06/19 completed Not Available Not Available Not Available atorvastati n 10 mg tablet TAKE 1 TABLET BY MOUTH ONCE DAILY DIRECTED FOR HIGH CHOLESTER OL FOR 90 DAYS active Not Available Not Available No t Available tizanidine 4 mg tablet active Not Available Not Available Not Available hydrocodone 5 mg-acetamin ophen 325 mg tablet TAKE 1 TABLET BY MOUTH EVERY 6 HOURS active Not Available Not Available No t Available ergocalcife rol (vitamin D2) 1,250 mcg (50,000 unit) capsule TAKE 1 CAPSULE BY MOUTH ONCE A WEEK FOR VITAMIN D DEFICIENC Y active Not Available Not Available No t Available methylpredn isolone 4 mg tablets in a dose pack TAKE BY MOUTH DIRECTED ON INSIDE OF PACKAGE 06/19 completed Not Available Not Available Not Available levocetiriz ine 5 mg tablet TAKE 1 TABLET BY MOUTH ONCE DAILY FOR ALLERGIES active Not Available Not Available No t Available cholecalcif willy (vitamin D3) 50 mcg (2,000 unit) capsule TAKE 1 CAPSULE BY MOUTH ONCE DAILY FOR VITAMIN D DEFICIENC Y active Not Available Not Available No t Available naloxone 4 mg/actuatio n nasal spray Take 1 spray as needed by nasal route as needed for 1 day, for opioid overdose. active Not Available Not Available No t Available BinaxNOW COVID-19 Ag Self Test kit TEST DIRECTED TODAY 10/26 completed Not Available Not Available Not Available Lastacaft Once Daily Relief 0.25 % eye drops INSTILL 1 DROP INTO AFFECTED EYE(S) BY OPHTHALMI C ROUTE ONCE DAILY 2024 active Not Available Not Available Not Avai lable Vitals Date Recorded Body height Body mass index (BMI) Body weight Oxygen saturation Oxygen saturation in Arterial blood by Pulse oximetry Heart rate Body temperature Systolic blood pressure Diastolic blood pressure Provider Name and Address Organization Details Last Updated DateTime 5 157.48 cm 33.3 kg/m2 42949.5 3 g 96 % 96 % 70 /min 98.1 [degF] 120 mm[Hg] 78 mm[Hg] Rosey Smith [employer] 5 09:45:53 Social History Question Answer Notes LastModified by Organizat ion Details LastModified Time Tobacco Smoking Status Current Every Day Smoker Rosey davis [employer] 06/19/2024 09:25:14 Do You Have An Advance Directive? No Information not available 06/19/2024 Is Your Home Air Conditioned? Yes Information not available 06/19/2024 If You Are , What Was Your Level Of Alcohol Consumption Prior To ? None Information not available 06/19/2024 Do You Wear A Helmet When Biking? No Information not available 06/19/2024 Are You Blind Or Do You Have Difficulty Seeing? No Information not available 06/19/2024 What Is Your Level Of Caffeine Consumption? Moderate Information not available 06/19/2024 What Type Of Vice President Medical Affairs Do You Use? None Information not available 06/19/2024 Have You Been To An Area Known To Be High Risk For COVID-19? No Information not available 06/19/2024 Are You Deaf Or Do You Have Serious Difficulty Hearing? No Information not available 06/19/2024 What Type Of Diet Are You Following? REGULAR Information not available 06/19/2024 What Is The Highest Grade Or Level Of School You Have Completed Or The Highest Degree You Have Received? [id number] Information not available 06/19/2024 Have There Been Any Changes To Your Family Or Social Situation? No Information no t available 06/19/2024 Are There Any Guns Present In Your Home? Yes Information not available 06/19/2024 Which Of Your Hands Is Dominant? Right Information not available 06/19/2024 What Is Your Home Situation? Mother Information not available 06/19/2024 Do You Have A Medical Power Of Adaptive Physical Education Teacher? No Information not available 06/19/2024 What Was The Date Of Your Most Recent Tobacco Screening? 01/08/2025 Information not available 01/08/2025 Do You Have Any Pets? No Information not available 06/19/2024 What Is Your Relationship Status? Information not available 06/19/2024 Have You Repeated Any Grades? No Information not available 06/19/2024 Do You Use Your Seat Belt Or Car Seat Routinely? Yes Information not available 06/19/2024 Are You Sexually Active? No Information not available 06/19/2024 Do You Have Any Siblings? Yes Information not available 06/19/2024 Do You Have Smoke And Carbon Monoxide Detectors In Your Home? Yes Information not available 06/19/2024 At What Age Did You Start Smoking Tobacco? 14 Information not available 06/19/2024 Are You Passively Exposed To Smoke? No Information no t available 06/19/2024 Are There Any Smokers In Your House? Yes Information not available 06/19/2024 How Much Tobacco Do You Smoke? 0.5 PPD Information not available 06/19/2024 Do You Use Sunscreen Routinely? No Information not available 06/19/2024 Has Tobacco Cessation Counseling Been Provided? Yes Information not available 06/19/2024 On What Date Was Tobacco Cessation Counseling Provided? 01/08/2025 Information not available 01/08/2025 Have You Recently Traveled Abroad? No Information not available 06/19/2024 Do You Have Difficulty Walking Or Climbing Stairs? Yes Information not available 06/19/2024 Are You Currently In School? No Information not available 06/19/2024 Do You Have Any Dietary Restrictions? No Information not available 06/19/2024 Sex: Female Functional Status Question Answer Note LastModified by Organizat ion Details LastModified Time Do you use any illicit or recreational drugs? No Information not available 06/19/2024 Do you or have you ever used any other forms of tobacco or nicotine? No Information not available 06/19/2024 What is your level of alcohol consumption? None Information not available 06/19/2024 Are you currently employed? No Information not available 06/19/2024 Do you have transportation difficulties? No Information not available 06/19/2024 Are you able to walk? YESWOREST Information not available 06/19/2024 Do you have difficulty doing errands alone? No Information not available 06/19/2024 Are you able to care for yourself? Yes Information not available 06/19/2024 Do you have difficulty dressing or bathing? No Information not available 06/19/2024 What is your exercise level? None Information not available 06/19/2024 Mental Status Question Answer Note LastModified by Organizat ion Details LastModified Time Do you feel stressed (tense, restless, nervous, or anxious, or unable to sleep at night)? [id number] Information not available 06/19/2024 Do you have difficulty concentrating, remembering or making decisions? No Information no t available 06/19/2024 Are you or have you been involved with bullying? No Information not available 06/19/2024 Family History Relationship Description Onset Age of this Age Resolved Age Notes LastModified by Organization Details LastModified Time Mother Layton schulte Not available 2023 09:26:49 Father Layton schulte Not available 2023 09:26:54 Notes:Cancer- father- unsure of what kind Medical History Condition Response Coronary Artery Disease N Other N Gout N Kidney Stones N Blood Diseases N Hyperthyroidism N Blood Transfusion N Breast Cancer N Emergency room visit since last appointm ent. N COPD N Depression N Dermatologic Disorders N Lung Disease N Hypothyroidism N Developmental or Behavioral Disorders N Defects or Inherited Disease N Breast Problem N Difficulty Swallowing N Anesthesia Complications N History of STI N Meniere's disease N Anxiety Disorder N Muscle, Joint, or Bone Problems N Autoimmune disease N Vision or Eye Problems N Arthritis N Polyps N Infertility N Mental Disorder N Congenital Anomalies N Acid Reflux (GERD) N Cancer N Stroke N Neurologic/Epilepsy N Endometriosis N Bladder or Kidney Problems N High Cholesterol Y Liver Disease N Organ Transplant N Psychiatric/Mental Health Condition N Fibromyalgia N Dialysis N Schizophrenia N Headaches N Kidney Disease N Allergies/Hayfever N Heart Problems N Ear or Hearing Problems N Hospitalizations N Learning Disorder N Artificial Joints N Thyroid Problems N GI Problems N Acne N ADD/ADHD N Eating Disorder N Anemia N Constipation N Mental Illness N Ovarian Cancer N Diabetes N Bedwetting N Hepatitis/Liver Disease N Tuberculosis N Eczema N Diverticulitis N Abuse/Domestic Violence N Asthma N Trauma/Violence N Substance Abuse N Reflux/GERD N Depression/ depression N Hepatitis N Heart Disease N Pulmonary Embolism N Tourette Syndrome N Chronic Ear Infections N Pre-Eclampsia N Hypertension N Chicken Pox N Autism Spectrum Disorder (ASD) N Osteoporosis N Thrombophilias N Gynecological History Statement/Question Response Menses Monthly N Abnormal Pap N HPV Vaccine N Date of Last Pap Smear Most Recent Mammogram 01/13/2024 Obstetrics History GPAL:G 3 P 3 0 0 3 Type Value Multiple Births 0 Full Term 3 Induced 0 Spontaneous 0 Premature 0 Living 3 Ectopics 0 Total 3 Immunizations Vaccine Type Date Status Note Provider Nam e and Address Organization Details Recorded Time pneumococcal polysaccharide PPV23 4 completed Rosey Vice null, [employer] 08/13/2024 15:45:16 Tdap 3 completed Rosey Vice null, [employer] 08/13/2024 10:29:23 Tdap 7 completed Rosey Vice null, [employer] 08/13/2024 10:29:23 Td (adult), 2 Lf tetanus toxoid, preservative free, adsorbed 0 completed Rosey Vice null, [employer] 08/13/2024 10:29:23 Hep B, adult 4 completed Rosey Vice null, [employer] 08/13/2024 10:29:23 Hep B, adult 4 completed Rosey Vice null, [employer] 08/13/2024 10:29:23 Hep B, adult 4 completed Rosey Vice null, [employer] 08/13/2024 10:29:23 Hep A, adult 9 completed Rosey Vice null, [employer] 08/13/2024 10:29:23 Past Encounters Encounter ID Performer Location Encounter Start Date Encounter Closed Date Diagnosis/Indication Diagnosis SNOMED-CT Code Diagnosis ICD10 Code Diagnosis Note [id number] YUE Maradiaga [facility] [address] [place] [address] 01/08/2025 09:30:16 01/08/2025 10:34:50 Long-term current use of drug therapy 766084066 Z79.899 Seasonal a llergic rhinitis 727652064 J30.2 Health Concerns Section Related Observation LastModified by Organization Detai ls LastModified Time None Recorded Concern Status LastModified by Organization Details LastModified Time None Recorded Payers Encounter Date Sequence Insurance Name Policy Number Policy Inman Covered Member ID Inman Member ID Guarantor Name 01/08/2025 1 [facility] Essence Phillipsump [id number] Essence Justin Notes Date Note Type Note Provider Name and Address Organization Details Recorded Time 01/08/2025 text/html Patient presents with sneezing, itchy eyes, watery eyes, scratchy throat. No fever. YUE Maradiaga [address] [place] [address], [phone], [facility], [facility]. 01/08/2025 12:54:52 OBGyn Episode No OBEpisode recorded.
--- OUTSIDE RECORDS SUMMARY | 2025-02-10 10:00 | XMS_ITS | Clinical Summary ---
Author Organization Healthcare Address [address] [id number] Care Team Providers Care Loom Blower Name Role Phone Dany Connie Chapo TURNER Primary Care Provider Allergies No known active allergies Medications atorvastatin (Lipitor) 10 MG tablet Take 1 tablet (10 mg) by mouth 1 (one) time each day. 10/26/2022 Active celecoxib (CeleBREX) 200 MG capsule Take 1 capsule (200 mg) by mouth 1 (one) time each day. 09/19/2022 Active cetirizine (ZyrTEC) 10 MG tablet Take 1 tablet (10 mg) by mouth 1 (one) time each day if needed. 03/19/2022 Active cholecalciferol (Vitamin D-3) 50 MCG (2000 UT) capsule Take 1 capsule (2,000 Units) by mouth 1 (one) time each day. 12/19/2022 Active HYDROcodone-jumana taminophen ([place]) 5-325 MG tablet Take 1 tablet (5 mg of hydrocodone) by mouth 2 (two) times a day if needed. 11/26/2022 Active tiZANidine (Zanaflex) 4 MG tablet 11/18/2023 Active Active Problems No known active problems Immunizations Immunization Administration Dates Next Due Hep A, Adult 08/27/2018 Hep B, adult 04/12/2004,10/21/2003,09/01/2003 TD (adult), 2 Lf tetanus tox oid, preservative free, adsorbed 09/19/1999 Tdap 03/07/2017,09/23/2012 Family History Medical History Relation Name Comments Cancer Father Diabetes Father Heart disease Father Relation Name Status Comments Father Social History Tobacco Use Types Packs/Day Years Used Date Smoking Tobacco: Every Day Cigarettes Smokeless Tobacco: Never Tobacco Cessation:Ready to Q uit: Not Asked; Counseling Given: Not Answered Alcohol Use Standard Drinks/Week Comments Never 0 (1 standard drink = 0.6 oz pur e alcohol) PHQ-2 Answer Date Recorded Patient Health Questionnaire-2 Score 0 12/27/2022 PHQ-2A Answer Date Recorded Patient Health Questionnaire-2 Score 0 12/27/2022 Comments No Sex and Gender Information Value Date Recorded Sex Assigned at Not on file Legal Sex Female 8:15 PM EDT Gender Identity Not on file Sexual Orientation Not on file Last Filed Vital Signs Vital Sign Reading Time Taken Comments Blood Pressure 120/81 11/26/2023 8:11 AM EDT Pulse 77 2023 10:51 AM EDT Temperature 36.7 C (98.1 F) 2023 10:51 AM EDT Respiratory Rate 14 2023 10:51 AM EDT Oxygen Saturation - - Inhaled Oxygen Concentration - - Weight 82.6 kg (182 lb) 11/26/2023 8:11 AM EDT Height 157.5 cm (5' 2 ) 11/26/2023 8:11 AM EDT Body Mass Index 33.29 11/26/2023 8:11 AM EDT Plan of Treatment Health Maintenance Due Date Last Done Comments [facility]-HIV Screening 1969 [facility]-Hepatitis C Screening 1969 [facility]-Infant/Child/Adol SDOH Screenings 1969 [facility]- SDOH Screenings 1987 [facility]-Adult SDOH Screenings 1987 CT Colonography 2014 Colonoscopy 2014 FIT-DNA 2014 FIT 2014 FOBT 2014 Sigmoidoscopy 2014 [facility]-Colorectal Cancer Screening 2014 [facility]-Breast Cancer Screening 2019 [facility]-Pneumococcal Vaccine: 50 + Years (1 of 1 - PCV) 2019 [facility]-Zoster Vaccines (1 of 2) 2019 [facility]-Depression Screening 12/28/2023 12/27/2022 [id number] Vaccine ( - 2023- season) 2024 [facility]-Influenza Vaccine (Seaso n Ended) 2025 [facility]-Pap Smear 2026 2023, 12/27/2022, 09/30/2021 [facility]-DTaP,Tdap,and Td Vaccine s (3 - Td or Tdap) 03/07/2027 03/07/2017, 09/23/2012, 09/19/1999 [facility]-Cervical Cancer Screening 01/11/2028 [facility]-HPV/Cotest 01/11/2028 2023, 12/27/2022 [facility]-Hepatitis B Vaccines Completed 004, 10/21/2003, 09/01/2003 [facility]-Hepatitis A Vaccines Aged Out 08/27/2018 No longer eligible based on patient's age to complete this topic [facility]-Obesity Intervention Completed 024, 12/27/2022 HPV Vaccines Aged Out No longer eligi ble based on patient's age to complete this topic [facility]-HIB Vaccines Aged Out No longer e ligible based on patient's age to complete this topic [facility]-IPV Vaccines Aged Out No longer e ligible based on patient's age to complete this topic [facility]-Rotavirus Vaccines Aged Out No lo nger eligible based on patient's age to complete this topic Procedures Procedure Name Priority Date/Time Associated Diagnosis Comments PAP TEST - CYTOLOGY Routine 2023 1 1:14 AM EDT Pap smear for cervical cancer screening from Last 3 Months or Most Recently Relevant to Health Maintenance Results * Pap Test (2023 11:14 AM EDT) Case Report Cytology Case: [id number] Authorizing Provider: Cecy Mei APRN, DNP Collected: 2023 1114 Ordering Location: [facility] Received: 01/11/2023 0940 Department Customer Order Clerk Clinic First Screen: Nicole Degroot Specimen: ThinPrep Pap Test, Liquid-Based Cervical/Vaginal, CERVICAL/VAGINAL 01/22/2023 3:31 PM EDT [facility] Interpretation NEGATIVE FOR INTRAEPITHELIAL LESION OR MALIGNANCY 01/22/2023 3:31 PM EDT [facility] at 1531 EDT Other Findings Shift in michelle suggestive of bacterial vaginosis. 01/22/2023 3:31 PM EDT [facility] Specimen Adequacy Satisfactory for evaluation; endocervical/ramirez sformation zone component present. Slide scanned and imaged by [employer] Imaging System with manual review of all selected ugarte. 01/22/2023 3:31 PM EDT [facility] Cervical cytology is a screening test primarily for squamous cancers and precursors and has associated false negative and positive results. New technologies such as liquid based sampling may decrease but will not eliminate all false negative results. Regular screening and follow-up of unexplained clinical signs and symptoms are recommended to minimize false negative results. Please see the ASCCP website (www.asccp.org)fo r followup recommendations. If HPV testing was requested, correlation with the results is suggested (please call Microbiology at [phone] for results). 01/22/2023 3:31 PM EDT [facility] Menstrual Status Cyclic with Unknown Last Menstrual Period 01/22/2023 3:31 PM EDT [facility] Contraceptive History Not Applicable 01/22/2023 3:31 PM EDT [facility] Screening Type Routine Screen 2022 3:31 PM EDT [facility] High Risk? No 01/22/2023 3:31 PM EDT [facility] HPV Testing Requested? Request HPV Testing if ASCUS (Women 25 Years or Older) 01/22/2023 3:31 PM EDT [facility] Previous Cancer History No 01/22/2023 3:31 PM EDT [facility] Clinical Information Z12.4 - Pap smear for cervical cancer screening [ICD-10-CM] 01/22/2023 3:31 PM EDT [facility] Swab Vaginal and cervical cytologic material / Unknown Non-blood Collection / Unknown 2023 11:14 AM EDT 01/11/2023 9:40 AM EDT us Cecy Mei APRN, [facility] CYTOLOGY ORDERABLES Final Result [facility] [address] [place] [address] from Last 3 Months or Most Recently Relevant to Health Maintenance Insurance [facility] MEDICAID Care Teams Loom Blower Relationship Specialty Start Date End Date Mari Conn PA [address] [place] [address] PCP - General 12/27/22
--- OUTSIDE RECORDS SUMMARY | 2025-02-10 10:00 | XMS_ITS | Data Portability ---
Author Organization [facility] Address [address] [place] [address] [place] [address] Assessment No assessment recorded. Plan of Treatment Reminders Order Date Submit Date Provider Last Modified By Organization Details Last Modified Time Details Appointments FOLLOW UP 30 2024 09:00A Larry Conn PA-C Not available Not available Not available Lab unlisted lab - toxassure flex 19, [id number] 2024 025 [facility] ([facility], [address] [place] [address], [place], [address], 01/13/2025 00:06:55 vitamin D, 25-hydrox y, total, serum [address] (Lab), [address] [place] [address] [address], [place], [address], 08/21/2024 08:53:20 CMP, serum or plasma [address] (Lab), [address] [place] [address] [address], [place], [address], 08/21/2024 08:53:20 CBC w/ auto diff [address] (Lab), [address] [place] [address] [address], [place], [address], 08/21/2024 08:53:20 TSH, ultra-sen sitive, serum [address] (Lab), [address] [place], [address], 08/21/2024 08:53:20 HIV 1 + 2, meaningfu l use set [address] (Lab), [address], [place], [address], 08/21/2024 08:53:20 Hepatitis C IgG Ab, qual, serum [address] (Lab), [address], [place], [address], 08/21/2024 08:53:20 lipid panel, serum [address] (Lab), [address], [place], [address], 08/21/2024 08:53:19 unlisted lab - toxassure flex 19, [id number] 2023 024 [facility] ([place]), [address] [place] [address], [place], [address], 06/25/2024 01:06:43 Referral None recorded. Procedures None recorded. Surgeries None recorded. Imaging None recorded. Medication Orders Xyzal 5 mg tablet 2024 025 [facility], [address] [place], [address], 01/08/2025 10:11:05 Lastacaft Once Daily Relief 0.25 % eye drops 2024 025 [facility], [address] [place], [address], 01/08/2025 10:11:06 cholecalc iferol (vitamin D3) 50 mcg (2,000 unit) capsule 2024 025 [facility], [address], [address], 10/26/2024 15:41:53 ergocalci ferol (vitamin D2) 1,250 mcg (50,000 unit) capsule 2024 025 [facility], [address], [address], 10/26/2024 15:41:54 cholecalc iferol (vitamin D3) 50 mcg (2,000 unit) capsule 2023 024 [facility], [address], [address], 06/19/2024 09:55:24 ergocalci ferol (vitamin D2) 1,250 mcg (50,000 unit) capsule 2023 024 [facility], [address], [address], 06/19/2024 09:55:22 atorvasta tin 10 mg tablet 2023 024 [facility], [address], [address], 06/19/2024 09:55:24 Patient TargetsNo targets recorded. Patient Instructions Encounter Date Encounter Id Patient Instructions Last Modified By Organization Details Last Modified Time 06/19/2024 [id number] herniated disc: care instructions [email or web address] Not available 06/19/2024 09:55:16 learning about healthy weight [email or web address] Not available 06/19/2024 09:55:16 08/13/2024 [id number] herniated disc: care instructions [email or web address] Not available 08/13/2024 15:45:10 high cholesterol : care instructions Not available 08/13/2024 11:04:38 10/26/2024 [id number] herniated disc: care instructions [email or web address] Not available 10/26/2024 16:41:16 01/08/2025 [id number] seasonal allergies: care instructions [email or web address] Not available 01/08/2025 10:10:47 Reason for Referral None Reported. Results Created Date Observation Date Name Description Value Unit Range Abnormal Flag Note LastModifiedBy Organization Detail LastModifiedTime 06/19/20 24 06/24/2024 TOXAS SURE FLEX 19, UR summary report FINAL ===== ===== ===== ===== ===== ===== ===== ===== ===== ===== ===== ===== ===== === Opiat e Class , MS, Ur RFX ToxAs sure Flex 19, Ur ===== ===== ===== ===== ===== ===== ===== ===== ===== ===== ===== ===== ===== === Test Resul t Flag Units Drug Prese nt [place] codon e 53 ng/mg creat [place] morph one 80 ng/mg creat Dihyd rocod eine 43 ng/mg creat Norhy droco done 97 ng/mg creat Sourc es of hydro codon e inclu de sched uled presc ripti on medic ation s. [place] morph one, dihyd rocod eine and norhy droco done are expec radha metab olite s of hydro codon e. [place] morph one and dihyd rocod eine are also avail able as sched uled presc ripti on medic ation s. ===== ===== ===== ===== ===== ===== ===== ===== ===== ===== ===== ===== ===== === Test Resul t Flag Units Ref Range Creat inine 148 mg/dL >=20 ===== ===== ===== ===== ===== ===== ===== ===== ===== ===== ===== ===== ===== === Decla red Medic ation s: Medic ation list was not provi ded. ===== ===== ===== ===== ===== ===== ===== ===== ===== ===== ===== ===== ===== === For clini ángel consu ltati on, pleas e call [phone]. ===== ===== ===== ===== ===== ===== ===== ===== ===== ===== ===== ===== ===== === Not Available [facility] ([facility]) [address] [place], [address], 06/25/2024 01:06:43 06/19/2006/24/2024 TOXAS SURE FLEX 19, UR pdf . Not Available [facility] ([facility]) [address] [place], [address], 06/25/2024 01:06:43 06/19/2006/24/2024 TOXAS SURE FLEX 19, UR creatinine 148 mg/dL REFER ENCE RANGE : Ref Range >=20 Not Available [facility] ([facility]) [address] [place], [address], 06/25/2024 01:06:43 06/19/2006/24/2024 TOXAS SURE FLEX 19, UR amphetamines ia NEGATI VE NG/mL cutoff :300 Not Available [facility] ([facility]) [address] [place], [address], 06/25/2024 01:06:43 06/19/2006/24/2024 TOXAS SURE FLEX 19, UR benzodiazepi jozef NEGATI VE Not Available [facility] ([facility]) [address] [facility], [address], 06/25/2024 01:06:43 06/19/2006/24/2024 TOXAS SURE FLEX 19, UR diazepam NOT DETECT ED NG/mg _crea t Not Available [facility] ([facility]) [address] [facility], [place], [address], 06/25/2024 01:06:43 06/19/2006/24/2024 TOXAS SURE FLEX 19, UR desmethyldia zepam NOT DETECT ED NG/mg _crea t Not Available [facility] ([facility]) [address] [facility], [place], [address], 06/25/2024 01:06:43 06/19/2006/24/2024 TOXAS SURE FLEX 19, UR oxazepam NOT DETECT ED NG/mg _crea t Not Available [facility] ([facility]) [address] [facility], [place], [address], 06/25/2024 01:06:43 06/19/2006/24/2024 TOXAS SURE FLEX 19, UR temazepam NOT DETECT ED NG/mg _crea t Expec radha metab olism of benzo diaze pine class drugs : Paren t Drug Detec radha Metab olite s ----- ----- - ----- ----- ----- ----- Diaze beronica: Desme thyld iazep am, Temaz epam, Oxaze beronica Chlor diaze poxid e: Desme thyld iazep am, Oxaze beronica Clora zepat e: Desme thyld iazep am, Oxaze beronica Halaz epam: Desme thyld iazep am, Oxaze beronica Temaz epam: Oxaze beronica Oxaze beronica: None Not Available [facility] ([facility]) [address] [place], [address], 06/25/2024 01:06:43 06/19/2006/24/2024 TOXAS SURE FLEX 19, UR alprazolam NOT DETECT ED NG/mg _crea t Not Available [facility] ([facility]) [address] [place], [address], 06/25/2024 01:06:43 06/19/2006/24/2024 TOXAS SURE FLEX 19, UR alpha-hydrox yalprazolam NOT DETECT ED NG/mg _crea t Not Available [facility] ([facility]) [address] [place], [address], 06/25/2024 01:06:43 06/19/2006/24/2024 TOXAS SURE FLEX 19, UR desalkylflur azepam NOT DETECT ED NG/mg _crea t Not Available [facility] ([facility]) [address] [place], [address], 06/25/2024 01:06:43 06/19/2006/24/2024 TOXAS SURE FLEX 19, UR lorazepam NOT DETECT ED NG/mg _crea t Not Available [facility] ([facility]) [address] [place], [address], 06/25/2024 01:06:43 06/19/20 24 06/24/2024 TOXAS SURE FLEX 19, UR alpha-hydrox ytriazolam NOT DETECT ED NG/mg _crea t Not Available [facility] ([facility]) [address] [place], [address], 06/25/2024 01:06:43 06/19/2006/24/2024 TOXAS SURE FLEX 19, UR clonazepam NOT DETECT ED NG/mg _crea t Not Available [facility] ([facility]) [address] [place], [address], 06/25/2024 01:06:43 06/19/20 24 06/24/2024 TOXAS SURE FLEX 19, UR 7-aminoclona zepam NOT DETECT ED NG/mg _crea t Not Available [facility] ([facility]) [address] [place], [address], 06/25/2024 01:06:43 06/19/20 24 06/24/2024 TOXAS SURE FLEX 19, UR midazolam NOT DETECT ED NG/mg _crea t Not Available [facility] ([facility]) [address] [place], [address], 06/25/2024 01:06:43 06/19/2006/24/2024 TOXAS SURE FLEX 19, UR alpha-hydrox ymidazolam NOT DETECT ED NG/mg _crea t Not Available [facility] ([facility]) [address] [place], [address], 06/25/2024 01:06:43 06/19/2006/24/2024 TOXAS SURE FLEX 19, UR flunitrazepa m NOT DETECT ED NG/mg _crea t Not Available [facility] ([facility]) [address] [place], [address], 06/25/2024 01:06:43 06/19/2006/24/2024 TOXAS SURE FLEX 19, UR desmethylflu nitrazepam NOT DETECT ED NG/mg _crea t Not Available [facility] ([facility]) [address] [place], [address], 06/25/2024 01:06:43 06/19/2006/24/2024 TOXAS SURE FLEX 19, UR cocaine metabolite ia NEGATI VE NG/mL cutoff :150 Not Available [facility] ([facility]) [address] [place], [address], 06/25/2024 01:06:43 06/19/20 24 06/24/2024 TOXAS SURE FLEX 19, UR ethanol biomarkers ia NEGATI VE NG/mL cutoff :500 Not Available [facility] ([facility]) [address] [place], [address], 06/25/2024 01:06:43 06/19/2006/24/2024 TOXAS SURE FLEX 19, UR cannabinoids ia NEGATI VE NG/mL cutoff :20 Not Available [facility] ([facility]) [address] [place], [address], 06/25/2024 01:06:43 06/19/2006/24/2024 TOXAS SURE FLEX 19, UR 6-acetylmorp josie ia NEGATI VE NG/mL cutoff :10 Not Available [facility] ([facility]) [address] [place], [address], 06/25/2024 01:06:43 06/19/2006/24/2024 TOXAS SURE FLEX 19, UR opiate class ia COMMEN T NG/mL cutoff :100 Furth er testi ng indic ated Not Available [facility] ([facility]) [address] [place], [address], 06/25/2024 01:06:43 06/19/2006/24/2024 TOXAS SURE FLEX 19, UR oxycodone class ia NEGATI VE NG/mL cutoff :100 Not Available [facility] ([facility]) [address] [place] [address], [address], 06/25/2024 01:06:43 06/19/2006/24/2024 TOXAS SURE FLEX 19, UR methadone ia NEGATI VE NG/mL cutoff :100 Not Available [facility] ([facility]) [address] [place], [address], 06/25/2024 01:06:43 06/19/2006/24/2024 TOXAS SURE FLEX 19, UR methadone mtb ia NEGATI VE NG/mL cutoff :100 Not Available [facility] ([facility]) [address] [place] [address], [address], 06/25/2024 01:06:43 06/19/2006/24/2024 TOXAS SURE FLEX 19, UR buprenorphin e ia NEGATI VE NG/mL cutoff :5.0 Not Available [facility] ([facility]) [address] [place], [address], 06/25/2024 01:06:43 06/19/2006/24/2024 TOXAS SURE FLEX 19, UR fentanyl ia NEGATI VE NG/mL cutoff :2.0 Not Available [facility] ([facility]) [address] [place], [address], 06/25/2024 01:06:43 06/19/2006/24/2024 TOXAS SURE FLEX 19, UR tapentadol ia NEGATI VE NG/mL cutoff :200 Not Available [facility] ([facility]) [address] [place], [address], 06/25/2024 01:06:43 06/19/2006/24/2024 TOXAS SURE FLEX 19, UR propoxyphene ia NEGATI VE NG/mL cutoff :300 Not Available [facility] ([facility]) [address] [place], [address], 06/25/2024 01:06:43 06/19/20 24 06/24/2024 TOXAS SURE FLEX 19, UR tramadol ia NEGATI VE NG/mL cutoff :200 Not Available [facility] ([facility]) [address] [place] [address], [address], 06/25/2024 01:06:43 06/19/2006/24/2024 TOXAS SURE FLEX 19, UR methylphenid ate ia NEGATI VE NG/mL cutoff :100 Not Available [facility] ([facility]) [address] [place] [address], [address], 06/25/2024 01:06:43 06/19/2006/24/2024 TOXAS SURE FLEX 19, UR barbiturates ia NEGATI VE NG/mL cutoff :200 Not Available [facility] ([facility]) [address] [place], [address], 06/25/2024 01:06:43 06/19/2006/24/2024 TOXAS SURE FLEX 19, UR phencyclidin e ia NEGATI VE NG/mL cutoff :25 Not Available [facility] ([facility]) [address] [place], [address], 06/25/2024 01:06:43 06/19/2006/24/2024 TOXAS SURE FLEX 19, UR gabapentin ia NEGATI VE ug/mL cutoff :1.0 Not Available [facility] ([facility]) [address] [place], [address], 06/25/2024 01:06:43 06/19/2006/24/2024 TOXAS SURE FLEX 19, UR anticonvulsa nts NEGATI VE Not Available [facility] ([facility]) [address] [place], [address], 06/25/2024 01:06:43 06/19/2006/24/2024 TOXAS SURE FLEX 19, UR pregabalin NOT DETECT ED Not Available [facility] ([facility]) [address] [place] [address], [address], 06/25/2024 01:06:43 06/19/2006/24/2024 TOXAS SURE FLEX 19, UR carisoprodol ia NEGATI VE NG/mL cutoff :100 Not Available [facility] ([facility]) [address] [place], [address], 06/25/2024 01:06:43 06/19/2006/24/2024 OPIAT E CLASS , MS, UR RFX opiate class +POSIT ELA+ Not Available [facility] ([facility]) [address] [place], [address], 06/25/2024 01:06:43 06/19/2006/24/2024 OPIAT E CLASS , MS, UR RFX codeine NOT DETECT ED NG/mg _crea t Not Available [facility] ([facility]) [address] [facility], [place], [address], 06/25/2024 01:06:43 06/19/2006/24/2024 OPIAT E CLASS , MS, UR RFX morphine NOT DETECT ED NG/mg _crea t Not Available [facility] ([facility]) [address] [facility], [place], [address], 06/25/2024 01:06:43 06/19/2006/24/2024 OPIAT E CLASS , MS, UR RFX normorphine NOT DETECT ED NG/mg _crea t Not Available [facility] ([facility]) [address] [facility], [place], [address], 06/25/2024 01:06:43 06/19/2006/24/2024 OPIAT E CLASS , MS, UR RFX norcodeine NOT DETECT ED NG/mg _crea t Not Available [facility] ([facility]) [address] [facility], [place], [address], 06/25/2024 01:06:43 06/19/2006/24/2024 OPIAT E CLASS , MS, UR RFX hydrocodone 53 NG/mg _crea t Not Available [facility] ([facility]) [address] [place], [address], 06/25/2024 01:06:43 06/19/2006/24/2024 OPIAT E CLASS , MS, UR RFX hydromorphon e 80 NG/mg _crea t Not Available [facility] ([facility]) [address] [place], [address], 06/25/2024 01:06:43 06/19/2006/24/2024 OPIAT E CLASS , MS, UR RFX dihydrocodei ne 43 NG/mg _crea t Not Available [facility] ([facility]) [address] [facility], [place], [address], 06/25/2024 01:06:43 06/19/20 24 06/24/2024 OPIAT E CLASS , MS, UR RFX norhydrocodo ne 97 NG/mg _crea t Expec radha metab olism of opiat e class drugs : Paren t Drug Detec radha Metab olite s ----- ----- - ----- ----- ----- ----- Codei ne: Major : Morph ine, [place] deine Minor : [place] codon e, [place] morph one, Dihyd rocod eine, Norhy droco done, Normo rphin e Morph ine: Major : Normo rphin e Minor : [place] morph one [place] codon e: [place] morph one, Dihyd rocod eine, Norhy droco done [place] morph one: None Dihyd rocod eine: None Heroi n: 6-Ayo tylmo rphin e (if inclu ded), Morph ine, Normo rphin e Codei ne, in small amoun ts in emmanuel rison to morph ine, is often detec radha when heroi n is the sourc e drug. Not Available [facility] ([facility]) [address] [facility], [place], [address], 06/25/2024 01:06:43 01/09/2001/12/2025 TOXAS SURE FLEX 19, UR summary report FINAL ===== ===== ===== ===== ===== ===== ===== ===== ===== ===== ===== ===== ===== === Opiat e Class , MS, Ur RFX ToxAs sure Flex 19, Ur ===== ===== ===== ===== ===== ===== ===== ===== ===== ===== ===== ===== ===== === Test Resul t Flag Units Drug Prese nt [place] morph one 102 ng/mg creat Norhy droco done 97 ng/mg creat [place] morph one and norhy droco done are expec radha metab olite s of hydro codon e. Sourc es of hydro codon e are sched uled presc ripti on medic ation s. [place] morph one is also avail able as a sched uled presc ripti on medic ation . ===== ===== ===== ===== ===== ===== ===== ===== ===== ===== ===== ===== ===== === Test Resul t Flag Units Ref Range Creat inine 195 mg/dL >=20 ===== ===== ===== ===== ===== ===== ===== ===== ===== ===== ===== ===== ===== === Decla red Medic ation s: Medic ation list was not provi ded. ===== ===== ===== ===== ===== ===== ===== ===== ===== ===== ===== ===== ===== === For clini ángel consu ltati on, pleas e call [phone]. ===== ===== ===== ===== ===== ===== ===== ===== ===== ===== ===== ===== ===== === Not Available [facility] ([facility]) [address] [facility], [place], [address], 01/13/2025 00:06:55 05/16/20 25 01/12/2025 TOXAS SURE FLEX 19, UR pdf . Not Available [facility] ([facility]) [address] [place], [address], 01/13/2025 00:06:55 01/09/20 25 01/12/2025 TOXAS SURE FLEX 19, UR creatinine 195 mg/dL >=20 REFER ENCE RANGE : Ref Range >=20 Not Available [facility] ([facility]) [address] [place], [address], 01/13/2025 00:06:55 01/09/20 25 01/12/2025 TOXAS SURE FLEX 19, UR amphetamines ia Negati ve NG/mL cutoff :300 Not Available [facility] ([facility]) [address] [place], [address], 01/13/2025 00:06:55 01/09/20 25 01/12/2025 TOXAS SURE FLEX 19, UR benzodiazepi jozef Negati ve Not Available [facility] ([facility]) [address] [place], [address], 01/13/2025 00:06:55 01/09/20 25 01/12/2025 TOXAS SURE FLEX 19, UR diazepam Not Detect ed NG/mg _crea t Not Available [facility] ([facility]) [address] [place], [address], 01/13/2025 00:06:55 01/09/20 25 01/12/2025 TOXAS SURE FLEX 19, UR desmethyldia zepam Not Detect ed NG/mg _crea t Not Available [facility] ([facility]) [address] [place], [address], 01/13/2025 00:06:55 01/09/20 25 01/12/2025 TOXAS SURE FLEX 19, UR oxazepam Not Detect ed NG/mg _crea t Not Available [facility] ([facility]) [address] [place], [address], 01/13/2025 00:06:55 01/09/20 25 01/12/2025 TOXAS SURE FLEX 19, UR temazepam Not Detect ed NG/mg _crea t Expec ardha metab olism of benzo diaze pine class drugs : Paren t Drug Detec radha Metab olite s ----- ----- - ----- ----- ----- ----- Diaze beronica: Desme thyld iazep am, Temaz epam, Oxaze beronica Chlor diaze poxid e: Desme thyld iazep am, Oxaze beronica Clora zepat e: Desme thyld iazep am, Oxaze beronica Halaz epam: Desme thyld iazep am, Oxaze beronica Temaz epam: Oxaze beronica Oxaze beronica: None Not Available [facility] ([facility]) [address] [place], [address], 01/13/2025 00:06:55 01/09/20 25 01/12/2025 TOXAS SURE FLEX 19, UR alprazolam Not Detect ed NG/mg _crea t Not Available [facility] ([facility]) [address] [place], [address], 01/13/2025 00:06:55 01/09/20 25 01/12/2025 TOXAS SURE FLEX 19, UR alpha-hydrox yalprazolam Not Detect ed NG/mg _crea t Not Available [facility] ([facility]) [address] [place], [address], 01/13/2025 00:06:55 01/09/20 25 01/12/2025 TOXAS SURE FLEX 19, UR desalkylflur azepam Not Detect ed NG/mg _crea t Not Available [facility] ([facility]) [address] [place], [address], 01/13/2025 00:06:55 01/09/20 25 01/12/2025 TOXAS SURE FLEX 19, UR lorazepam Not Detect ed NG/mg _crea t Not Available [facility] ([facility]) [address] [place], [address], 01/13/2025 00:06:55 01/09/20 25 01/12/2025 TOXAS SURE FLEX 19, UR alpha-hydrox ytriazolam Not Detect ed NG/mg _crea t Not Available [facility] ([facility]) [address] [place], [address], 01/13/2025 00:06:55 01/09/20 25 01/12/2025 TOXAS SURE FLEX 19, UR clonazepam Not Detect ed NG/mg _crea t Not Available [facility] ([facility]) [address] [place], [address], 01/13/2025 00:06:55 01/09/20 25 01/12/2025 TOXAS SURE FLEX 19, UR 7-aminoclona zepam Not Detect ed NG/mg _crea t Not Available [facility] ([facility]) [address] [place], [address], 01/13/2025 00:06:55 01/09/20 25 01/12/2025 TOXAS SURE FLEX 19, UR midazolam Not Detect ed NG/mg _crea t Not Available [facility] ([facility]) [address] [place], [address], 01/13/2025 00:06:55 01/09/20 25 01/12/2025 TOXAS SURE FLEX 19, UR alpha-hydrox ymidazolam Not Detect ed NG/mg _crea t Not Available [facility] ([facility]) [address] [place], [address], 01/13/2025 00:06:55 01/09/20 25 01/12/2025 TOXAS SURE FLEX 19, UR flunitrazepa m Not Detect ed NG/mg _crea t Not Available [facility] ([facility]) [address] [place], [address], 01/13/2025 00:06:55 01/09/20 25 01/12/2025 TOXAS SURE FLEX 19, UR desmethylflu nitrazepam Not Detect ed NG/mg _crea t Not Available [facility] ([facility]) [address] [place], [address], 01/13/2025 00:06:55 01/09/20 25 01/12/2025 TOXAS SURE FLEX 19, UR cocaine metabolite ia Negati ve NG/mL cutoff :150 Not Available [facility] ([facility]) [address] [place], [address], 01/13/2025 00:06:55 01/09/20 25 01/12/2025 TOXAS SURE FLEX 19, UR ethanol biomarkers ia Negati ve NG/mL cutoff :500 Not Available [facility] ([facility]) [address] [place], [address], 01/13/2025 00:06:55 01/09/20 25 01/12/2025 TOXAS SURE FLEX 19, UR cannabinoids ia Negati ve NG/mL cutoff :20 Not Available [facility] ([facility]) [address] [place], [address], 01/13/2025 00:06:55 01/09/20 25 01/12/2025 TOXAS SURE FLEX 19, UR 6-acetylmorp josie ia Negati ve NG/mL cutoff :10 Not Available [facility] ([facility]) [address] [place], [address], 01/13/2025 00:06:55 01/09/20 25 01/12/2025 TOXAS SURE FLEX 19, UR opiate class ia COMMEN T NG/mL cutoff :100 Furth er testi ng indic ated Not Available [facility] ([facility]) [address] [place], [address], 01/13/2025 00:06:55 01/09/20 25 01/12/2025 TOXAS SURE FLEX 19, UR oxycodone class ia Negati ve NG/mL cutoff :100 Not Available [facility] ([facility]) [address] [place], [address], 01/13/2025 00:06:55 01/09/20 25 01/12/2025 TOXAS SURE FLEX 19, UR methadone ia Negati ve NG/mL cutoff :100 Not Available [facility] ([facility]) [address] [place], [address], 01/13/2025 00:06:55 01/09/20 25 01/12/2025 TOXAS SURE FLEX 19, UR methadone mtb ia Negati ve NG/mL cutoff :100 Not Available [facility] ([facility]) [address] [place], [address], 01/13/2025 00:06:55 01/09/20 25 01/12/2025 TOXAS SURE FLEX 19, UR buprenorphin e ia Negati ve NG/mL cutoff :5.0 Not Available [facility] ([facility]) [address] [place], [address], 01/13/2025 00:06:55 01/09/20 25 01/12/2025 TOXAS SURE FLEX 19, UR fentanyl ia Negati ve NG/mL cutoff :2.0 Not Available [facility] ([facility]) [address] [place], [address], 01/13/2025 00:06:55 01/09/20 25 01/12/2025 TOXAS SURE FLEX 19, UR tapentadol ia Negati ve NG/mL cutoff :200 Not Available [facility] ([facility]) [address] [place], [address], 01/13/2025 00:06:55 01/09/20 25 01/12/2025 TOXAS SURE FLEX 19, UR propoxyphene ia Negati ve NG/mL cutoff :300 Not Available [facility] ([facility]) [address] [place], [address], 01/13/2025 00:06:55 01/09/20 25 01/12/2025 TOXAS SURE FLEX 19, UR tramadol ia Negati ve NG/mL cutoff :200 Not Available [facility] ([facility]) [address] [place], [address], 01/13/2025 00:06:55 01/09/20 25 01/12/2025 TOXAS SURE FLEX 19, UR methylphenid ate ia Negati ve NG/mL cutoff :100 Not Available [facility] ([facility]) [address] [place], [address], 01/13/2025 00:06:55 01/09/20 25 01/12/2025 TOXAS SURE FLEX 19, UR barbiturates ia Negati ve NG/mL cutoff :200 Not Available [facility] ([facility]) [address] [place], [address], 01/13/2025 00:06:55 01/09/20 25 01/12/2025 TOXAS SURE FLEX 19, UR phencyclidin e ia Negati ve NG/mL cutoff :25 Not Available [facility] ([facility]) [address] [place], [address], 01/13/2025 00:06:55 01/09/20 25 01/12/2025 TOXAS SURE FLEX 19, UR gabapentin ia Negati ve ug/mL cutoff :1.0 Not Available [facility] ([facility]) [address] [place] [address], [id number], 01/13/2025 00:06:55 01/09/20 25 01/12/2025 TOXAS SURE FLEX 19, UR anticonvulsa nts Negati ve Not Available [facility] ([facility]) [address] [place], [address], 01/13/2025 00:06:55 01/09/20 25 01/12/2025 TOXAS SURE FLEX 19, UR pregabalin Not Detect ed Not Available [facility] ([facility]) [address] [place], [address], 01/13/2025 00:06:55 01/09/20 25 01/12/2025 TOXAS SURE FLEX 19, UR carisoprodol ia Negati ve NG/mL cutoff :100 Not Available [facility] ([facility]) [address] [place], [address], 01/13/2025 00:06:55 01/09/20 25 01/12/2025 OPIAT E CLASS , MS, UR RFX opiate class +POSIT ELA+ Not Available [facility] ([facility]) [address] [place], [address], 01/13/2025 00:06:56 01/09/20 25 01/12/2025 OPIAT E CLASS , MS, UR RFX codeine Not Detect ed NG/mg _crea t Not Available [facility] ([facility]) [address] [place], [address], 01/13/2025 00:06:56 01/09/20 25 01/12/2025 OPIAT E CLASS , MS, UR RFX morphine Not Detect ed NG/mg _crea t Not Available [facility] ([facility]) [address] [place], [address], 01/13/2025 00:06:56 01/09/20 25 01/12/2025 OPIAT E CLASS , MS, UR RFX normorphine Not Detect ed NG/mg _crea t Not Available [facility] ([facility]) [address] [place], [address], 01/13/2025 00:06:56 01/09/20 25 01/12/2025 OPIAT E CLASS , MS, UR RFX norcodeine Not Detect ed NG/mg _crea t Not Available [facility] ([facility]) [address] [place], [address], 01/13/2025 00:06:56 01/09/20 25 01/12/2025 OPIAT E CLASS , MS, UR RFX hydrocodone Not Detect ed NG/mg _crea t Not Available [facility] ([facility]) [address] [place], [address], 01/13/2025 00:06:56 01/09/20 25 01/12/2025 OPIAT E CLASS , MS, UR RFX hydromorphon e 102 NG/mg _crea t Not Available [facility] ([facility]) [address] [place], [address], 01/13/2025 00:06:56 01/09/20 25 01/12/2025 OPIAT E CLASS , MS, UR RFX dihydrocodei ne Not Detect ed NG/mg _crea t Not Available [facility] ([facility]) [address] [place], [address], 01/13/2025 00:06:56 01/09/20 25 01/12/2025 OPIAT E CLASS , MS, UR RFX norhydrocodo ne 97 NG/mg _crea t Expec radha metab olism of opiat e class drugs : Paren t Drug Detec radha Metab olite s ----- ----- - ----- ----- ----- ----- Codei ne: Major : Morph ine, Kaufman deine Minor : [place] codon e, [place] morph one, Dihyd rocod eine, Norhy droco done, Normo rphin e Morph ine: Major : Normo rphin e Minor : [place] morph one [place] codon e: [place] morph one, Dihyd rocod eine, Norhy droco done [place] morph one: None Dihyd rocod eine: None Heroi n: 6-Ayo tylmo rphin e (if inclu ded), Morph ine, Normo rphin e Codei ne, in small amoun ts in emmanuel rison to morph ine, is often detec radha when heroi n is the sourc e drug. Not Available [facility] ([facility]) [address] [facility], [place], [address], 01/13/2025 00:06:56 08/13/20 24 01/13/2024 MAMMO , scree david, digit al, bilat eral No observ ation record ed. [facility] (Med Record) [address], [place], [address], 08/13/2024 15:43:56 Result Notes None recorded. Problems Name Problem SNOMED Code Status Onset Date Resolution Date Notes Provider Name and Address Organization Details Recorded Time Hyperlipidemia 91273854 Active 2023 YUE Maradiaga [address] [place] [address], [phone], [employer] 4 15:14:11 Vitamin D deficiency 99545508 Active 2023 YUE Maradiaga [address] [place] [address], [phone] 8, [employer] 4 15:14:16 Displacement of lumbar intervertebral disc without myelopathy 97627683 Active 2023 YUE Maradiaga [address] [place] [address], [phone], [employer] 4 15:14:07 Seasonal allergic rhinitis 491415151 Active 2024 YUE Maradiaga [address] [place] [address], [phone] 8, [employer] 5 10:10:00 Problem Notes None recorded. Procedures Surgical History Date Name Laterality Status Provider Name and Address Organization Details Recorded Time 01/13/20 24 Most Recent Mammogram completed [employer] 10/26/2024 15:22:48 Appendectomy completed [address] [facility] [employer] 01/08/2025 09:46:45 Imaging Results None recorded. [...] height Body mass index (BMI) Body weight Body temperature Heart rate Oxygen saturation Oxygen saturation in Arterial blood by Pulse oximetry Systolic blood pressure Diastolic blood pressure Provider Name and Address Organization Details Last Updated DateTime 5 157.48 cm 32.9 kg/m2 42021.9 1 g 97.9 [degF] 72 /min 95 % 95 % 138 mm[Hg] 82 mm[Hg] [employer] 5 15:20:14 Date Recorded Body height Body mass index (BMI) Body weight Oxygen saturation Oxygen saturation in Arterial blood by Pulse oximetry Heart rate Body temperature Systolic blood pressure Diastolic blood pressure Provider Name and Address Organization Details Last Updated DateTime 5 157.48 cm 33.3 kg/m2 62215.5 3 g 96 % 96 % 70 /min 98.1 [degF] 120 mm[Hg] 78 mm[Hg] [employer] 5 09:45:53 Date Recorded Body weight Body mass index (BMI) Body height Heart rate Oxygen saturation Oxygen saturation in Arterial blood by Pulse oximetry Systolic blood pressure Diastolic blood pressure Provider Name and Address Organization Details Last Updated DateTime 4 95046.1 9 g 32.8 kg/m2 157.48 cm 80 /min 93 % 93 % 111 mm[Hg] 74 mm[Hg] [employer] 4 09:24:08 Date Recorded Body height Body mass index (BMI) Body weight Heart rate Oxygen saturation Oxygen saturation in Arterial blood by Pulse oximetry Systolic blood pressure Diastolic blood pressure Provider Name and Address Organization Details Last Updated DateTime 4 157.48 cm 32.8 kg/m2 29634.4 7 g 76 /min 95 % 95 % 116 mm[Hg] 77 mm[Hg] [employer] 4 10:29:11 Social History Question Answer Notes LastModified by Organizat ion Details LastModified Time Tobacco Smoking Status Current Every Day Smoker [employer] 06/19/2024 09:25:14 Do You Have An Advance [...] Information not available 06/19/2024 What Type Of Director Of Outreach Do You Use? None Information not available [...] Or The Highest Degree You Have Received? [id number] Information not available 06/19/2024 Have There Been Any Changes To Your Family Or Social Situation? No Information no t available 06/19/2024 Are There Any Guns Present In Your Home? Yes Information not available 06/19/2024 Which Of Your Hands Is Dominant? Right Information not available 06/19/2024 What Is Your Home Situation? Mother Information not available 06/19/2024 Do You Have A Medical Power Of Pulpwood Cutter? No Information not available 06/19/2024 What Was [...] anxious, or unable to sleep at night)? [id number] Information not available 06/19/2024 Do you have difficulty concentrating, remembering or making decisions? No Information no t available 06/19/2024 Are you or have you been involved with bullying? No Information not available 06/19/2024 Family History Relationship Description Onset Age of this Age Resolved Age Notes LastModified by Organization Details LastModified Time Mother Hypercholest erolemia Not available 2023 09:26:49 Father Hypercholest erolemia Not available 2023 09:26:54 Notes:Cancer- father- unsure of what kind Medical History Condition Response Coronary Artery Disease N Other N Gout N Kidney Stones N Blood Diseases N Hyperthyroidism N Blood Transfusion N Breast Cancer N Emergency room visit since last appointm ent. N COPD N Depression N Dermatologic Disorders N Hypothyroidism N Lung Disease N Developmental or Behavioral Disorders N Defects [...] polysaccharide PPV23 4 completed Rosey [employer] null, [employer] 08/13/2024 15:45:16 Tdap 3 completed Rosey Vice null, [employer] 08/13/2024 10:29:23 Tdap 7 completed Rosey Vice null, [employer] 08/13/2024 10:29:23 Td (adult), 2 Lf tetanus toxoid, preservative free, adsorbed 0 completed Rosey Vice null, [employer] 08/13/2024 10:29:23 Hep B, adult 4 completed Rosey Vice null, [employer] 08/13/2024 10:29:23 Hep B, adult 4 completed Rosey Vice null, [employer] 08/13/2024 10:29:23 Hep B, adult 4 completed Rosey Vice null, [employer] 08/13/2024 10:29:23 Hep A, adult 9 completed Rosey Vice null, [employer] 08/13/2024 10:29:23 Past Encounters Encounter ID Performer Location Encounter Start Date Encounter Closed Date Diagnosis/Indication Diagnosis SNOMED-CT Code Diagnosis ICD10 Code Diagnosis Note [id number] YUE Maradiaga [facility] [address] [place] [address] 06/19/2024 08:40:11 06/19/2024 09:50:42 Long-term current use of opiate analgesic drug 0271941591 64222 Z79.891 Body mass index 30+ - obesity 771906041 Z68.32 Hyperlipidemia 33216528 E78.5 Vitamin D deficiency 347 96885 E55.9 Displaceme nt of lumbar intervertebral disc without myelopathy 98676265 M51.26 RX Kaufman sent by Dr Hinojosa obtained todayCSA signed today [id number] YUE Maradiaga [address] [address] 08/13/2024 10:12:19 08/13/2024 11:24:20 Administration of pneumococcal vaccine 10421595 Z23 Hyperlipidemia 45718074 E78.5 Vitamin D deficiency 347 55979 E55.9 Adult heal th examination 921945277 Z00.00 Displaceme nt of lumbar intervertebral disc without myelopathy 49341248 M51.[address] Brooks ure appropriat e 06/19/24 [id number] YUE Maradiaga [address] [address] 10/26/2024 15:13:12 10/26/2024 15:40:55 Vitamin D deficiency 57572038 E55.9 Displaceme nt of lumbar intervertebral disc without myelopathy 74713071 M51.26 [id number] YUE Maradiaga [address] [address] 01/08/2025 09:30:16 01/08/2025 10:34:50 Long-term current use of drug therapy 682380282 Z79.899 Seasonal a llergic rhinitis 871241153 J30.2 Health Concerns Section Related Observation LastModified by Organization Detai ls LastModified Time None Recorded Concern Status LastModified by Organization Details LastModified Time None Recorded Advance Directives Directive N: Payers Insurance Date Sequence Insurance Name Policy Number Policy Inman Covered Member ID Inman Member ID Guarantor Name 02/09/2025 1 [employer] [facility] (MEDICAID HMO) Essence Justin [id number] Essence Justin Notes Date Note Type Note Provider Name and Address Organization Details Recorded Time 06/19/2024 text/html Patient presents to establish care at [facility], former patient of mine.History of chronic lumbar disc disease. Has herniated disc at L4/L5. Pain radiates down right leg. She sees pain management for injections, which do help. Also takes Kaufman, which helps reduce her pain. Without pain medicine, pain medicine is 9/10. With pain medicine, it is a 5/10.She also has a history of HLD, vitamin D deficiency. YUE Maradiaga [address] [place], [address], [employer] 06/19/2024 15:58:54 08/13/2024 text/html Patient presents for follow up and refills. History of low back pain, radiating down into right leg. Symptoms improved with Kaufman and she is compliant with meds. She also gets injective therapy at pain management. YUE Maradiaga [address] [place], [address], [employer] 08/13/2024 15:46:25 10/26/2024 text/html Patient presents for followup.History of Vitamin D deficiencyHistory of chronic pain. States she is doing well. YUE Maradiaga [address] [place], [address], [employer] 10/26/2024 16:42:50 01/08/2025 text/html Patient presents with sneezing, itchy eyes, watery eyes, scratchy throat. No fever. YUE Maradiaga [address] [place], [address], [employer] 01/08/2025 12:54:52 OBGyn Episode No OBEpisode recorded.
== END 2025-02-10 23:59 | disposition home or self-care (01) ==
LOC: SC.PAIN 09:50
PROVIDERS: PCP Physician Assistant; Visit Provider Nurse Practitioner Family
DX: M51.16 Intervertebral disc disorders with radiculopathy, lumbar region (principal); Z79.899 Other long term (current) drug therapy
CPT/HCPCS: 99212; G0463

== ENCOUNTER 2025-03-03 06:51 | Emergency (ER) | payer OTHER, SELFPAY ==
[2025-03-03 07:01] VITALS: BP 164/56; PULSE 89; RESP 18; TEMP 36.6; O2SAT 97; BMI 32.0
--- NOTE | 2025-03-03 07:15 | ED_ITS ---
Discharge Plan Disposition Patient Disposition: Home, Self-Care Prescriptions Prescriptions: New methocarbamol 500 mg tablet 1,000 mg PO Q8H PRN (Reason: muscle pain and spasm) Qty: 30 0RF Rx Instructions: Do not combine with other muscle relaxers No Action ibuprofen [Advil] 200 mg tablet 200 mg PO ONCE PRN (Reason: Pain) atorvastatin 10 mg tablet 10 mg PO HS Qty: 90 3RF Rx Instructions: 10 mg orally; cholecalciferol (vitamin D3) 50 mcg (2,000 unit) capsule 50 mcg PO DAILY Qty: 90 3RF ergocalciferol (vitamin D2) 1,250 mcg (50,000 unit) capsule 50,000 unit PO QWEEK Qty: 14 3RF amantadine HCl 100 mg tablet 100 mg PO DAILY nystatin 100,000 unit/mL suspension 10 ml PO QID 10 Days Qty: 400 0RF Rx Instructions: swish and swallow hydrocodone-acetaminophen 5-325 mg tablet 1 tab PO TID PRN (Reason: pain) Qty: 90 0RF ciprofloxacin-dexamethasone 0.3-0.1 % drops,suspension 4 drp otic (ear) BID 7 Days Qty: 7.5 0RF fluticasone propionate [Allergy Relief (fluticasone)] 50 mcg/actuation spray,suspension 1 spray intranasal DAILY Qty: 16 0RF Rx Instructions: administer into each nostril cyclobenzaprine 5 mg tablet 5 mg PO TID PRN (Reason: muscle spasm) Qty: 10 0RF Referrals Follow up/Referrals: Mari Conn PA [Primary Care Provider, Medical] - See instructions Activity Restrictions/Add. Instructions Additional Instructions/Restrictions: At this time it was felt you are safe to be discharged home. If new or worsening symptoms please do not hesitate to return the emergency department. Please take your methocarbamol as prescribed and do not combine it with your tizanidine. Please follow-up with your pain management doctor as soon as you are able and discuss if you are able to get the shot sooner so you do not have resurgence of your pain as you have this time. Clinical Impressions Clinical Impression: Lumbosacral disc herniation Print Language Print Language: Urdu Discharge ED Provider: Kristian Kim General Adult HPI General Chief complaint: PAIN Stated complaint: pain R leg Time Seen by Provider: 03/03/25 06:51 Mode of Arrival: Ambulatory Source of Information: Patient Description of Symptoms (Recalled from ER Triage Doc. by RN): Pt presents with right sciatica pain that she is being treated for through pain management. She takes 5/325 hydrocodone and gets steroid injection every 6 months. She states she is due for her next injection on March 09. Pt denies any urinary or bowel incontinence. History of Present Illness HPI narrative: Patient is a 55-year-old female with longstanding history of back pain radiating down her right lower extremity currently seeing pain management on hydrocodone who presents emergency department for evaluation of right lower extremity pain. Onset was subacute on chronic over the last 2 weeks consistent with her previous distribution of pain radiating down her right lower extremity. No new trauma. No incontinence reported. No other acute complaints at this time. Please note that above description of symptoms, in this electronic medical record under categorization of recalled from ER triage doctor by RN are reflective of an initial nursing assessment, however, is not reflective of my full history and physical exam that was personally taken and clarified. Consequentially, this preceding description of symptoms, which may include the patient's categorized chief complaint in the EMR, do not reflect my personal clinical impression, and the ultimate description of history of present illness and patient stated complaints should be deferred to this section of the note. Unless stated otherwise or congruent with this section of the note, additional signs, symptoms, or incongruence should be interpreted as inaccurate with my clinical impression. Related Data Home Medications ?Medication ?Instructions ?Recorded ?Confirmed ibuprofen 200 mg tablet (Advil) 200 mg PO ONCE PRN Isabelle n 04/16/18 02/10/25 amantadine HCl 100 mg tablet 100 mg PO DAILY 04/28/24 02/10/25 Previous Rx's ?Medication ?Instructions ?Recorded atorvastatin 10 mg tablet 10 mg PO HS Cholesterol #90 tabs 09/03/23 cholecalciferol (vitamin D3) 50 50 mcg PO DAILY Supple ment #90 caps 09/03/23 mcg (2,000 unit) capsule ergocalciferol (vitamin D2) 1,250 50,000 unit PO QWEEK Supplement 09/03/23 mcg (50,000 unit) capsule #14 caps hydrocodone 5 mg-acetaminophen 325 1 tab PO TID PRN pa in #90 tabs 04/28/24 mg tablet nystatin 100,000 unit/mL oral 10 ml PO QID 10 days #40 0 mL 04/28/24 suspension ciprofloxacin 0.3 %-dexamethasone 4 drp otic (ear) BID 7 days #7.5 mL 12/12/24 0.1 % ear drops,suspension fluticasone propionate 50 1 spray intranasal DAILY #16 grams 12/12/24 mcg/actuation nasal spray,suspension (Allergy Relief (fluticasone)) cyclobenzaprine 5 mg tablet 5 mg PO TID PRN muscle spa sm #10 01/24/25 tabs methocarbamol 500 mg tablet 1,000 mg (2 x 500 mg) PO Q 8H PRN 03/03/25 muscle pain and spasm #30 tabs Allergies Allergy/AdvReac Type Severity Reaction Status Date / Time gabapentin AdvReac Severe Chest Pain Verified 01/24/25 09:58 [facility] Disclaimer: The information contained in this section may have been updated after the patient was seen, as this information can be updated by other users. Medical History Lumbar nerve root impingement [address] [address] Magnetic Resonance Report Signed Patient: Essence Justin MR#: [id number] : 1970 Acct:[id number] Age/Sex: 54 / F ADM Date: 02/11/24 Loc: RAD Attending Dr: Mari TURNER Ordering Physician: Mari Conn Date of Service: 02/11/24 Procedure(s): MR lumbar spine wo con Accession Number(s): [id number] cc: Rene Cantrell MD; Mari Conn~ FINAL REPORT TECHNIQUE: Multiplanar MR without contrast CLINICAL HISTORY: low back pain radiating down right leg. NO INJURY OR TRAUMA COMPARISON: 09/28/2022 FINDINGS: Sagittal images show normal vertebral height. Alignment is normal. Marrow signal pattern is unremarkable. T12-L1: Unremarkable. L1-2: Unremarkable L2-3: Unremarkable L3-4: Mild diffuse disc bulge and mild facet arthropathy. Borderline central canal stenosis. Mild bilateral neural foraminal narrowing. L4-5: Moderate diffuse disc bulge and facet arthropathy. Mild central canal stenosis and mild bilateral neural foraminal narrowing. L5-S1: Mild diffuse disc bulge. Moderate right lateral canal disc protrusion compresses the right S1 nerve root, similar to previous. Mild facet arthropathy and mild bilateral neural foraminal narrowing. IMPRESSION: Stable exam with right S1 nerve root compression related to L5-S1 disc protrusion. Reviewed, Interpreted and Dictated by Juan Cantrell MD Transcribed by Ana Johnson Authenticated and [facility] Lower extremity pain Family History Other No significant family history Social History Smoking Status: Current every day smoker tobacco type: cigarettes packs per day: 10 alcohol intake: never substance use type: denies use current occupational status: other Travel in the last 8 weeks?: None household members: family housing: apartment Other Medical History Have you received the Flu Vaccine for this season: No Have you received the Pneumonia Vaccine: Yes ROS Obtained: Yes Systems reviewed as appropriate & no additional complaints except as documented Physical Exam General General appearance: alert Comment: Appearing uncomfortable in bed Head Head exam: atraumatic and normocephalic Eye Eye exam: Present PERRL ENT ENT exam: Present mucous membranes moist Neck Neck exam: Present normal inspection Chest Chest inspection: Present normal inspection and symmetric chest wall rise Respiratory Respiratory exam: Absent respiratory distress Cardiovascular Cardiovascular exam: Present regular rate and normal rhythm Extremities Exam Extremities exam: Present normal inspection and other (Palpable dorsal pedal pulse on the right. Extensor 5 out of 5 strength intact at the knee. Patient has antalgic gait.) Neurological Exam Neurological exam: Present alert Psychiatric Psychiatric exam: Present normal affect Skin Skin exam: Present warm and dry Medical Decision Making Medical Records Screening: Per USPSTF and CDC recommendations, given the prevalence of disease in our region, it is our hospital?s policy to screen for HIV and viral Hepatitis for all patients aged 18 and over and those with ongoing risk factors. Tom Inquiry Pt receiving controlled substance: No Vital Signs: 03/03/25 07:01 Temperature 97.8 F Temperature Source Oral Pulse Rate [Left] 89 Respiratory Rate 18 Blood Pressure [Right Arm] 164/56 H Blood Pressure Mean [Right Arm] 92 Blood Pressure Source [Right Arm] Automatic Cuff Blood Pressure Position [Right Arm] Sitting 02 Sat by Pulse Oximetry 97 Oxygen Delivery Method Room Air Orders (Tests/Meds): ED MEDICATIONS Generic Name Dose Route Start Last Admin Trade Name Leo PRN Reason Stop Dose Admin Acetaminophen 1,000 mg 03/03/25 07:11 Acetaminophen 500mg Tab PO 03/03/25 07:12 ONCE ONE Ketorolac Tromethamine 60 mg 03/03/25 07:11 Ketorolac 30mg/Ml Vial IM 03/03/25 07:12 ONCE ONE Methocarbamol 1,000 mg 03/03/25 07:12 Methocarbamol 500mg Tablet PO 03/03/25 07:13 ONCE ONE Oxycodone HCl 5 mg 03/03/25 07:12 Oxycodone 5mg Immediate Release Tablet PO 03/03/25 07:13 ONCE ONE Medical Decision Narrative: In summary patient is a 55-year-old female with past medical history described above who presents emergency department for evaluation of radicular back pain. Patient is hemodynamically stable nontoxic-appearing upon arrival, afebrile. Based on history and physical exam this is consistent with her baseline pain however her previous response to her shots from pain management clinic seem to be waning and she is pending her next shot in 1 week. She has no new trauma and no atypical characteristics of her pain to warrant new imaging although was considered will be deferred at this time. Patient will receive multimodal pain control with Tylenol, Toradol, methocarbamol, single dose of oxycodone given that it has higher affinity in analgesia compared to her baseline oxycodone and patient is appropriate for discharge at this time was given return precautions. Manager Payer disclaimer Much of this encounter note is an electronic desktop support engineer spoken language to printed text. Electronic desktop support engineer of the spoken language may permit errors. Although I have reviewed the note, some errors may still exist. Critical Care Critical Care Time Critical Care Time: No
[2025-03-03] MEDS: METHOCARBAMOL 500MG TABLET 1000 MG PO (07:19)
[2025-03-03] MEDS: ACETAMINOPHEN 500MG TAB 1000 MG PO (07:20)
[2025-03-03] MEDS: OXYCODONE 5MG IMMEDIATE RELEASE TABLET 5 MG PO (07:20)
[2025-03-03] MEDS: KETOROLAC 30MG/ML VIAL 60 MG IM (07:21)
--- OUTSIDE RECORDS SUMMARY | 2025-03-03 07:22 | XMS_ITS | Continuity of Care Document ---
Author Organization [place] - [employer] [facility] Address [address] [place] [address] Assessment No assessment recorded. Plan of Treatment Reminders Order Date Submit Date Provider Last Modified By Organization Details Last Modified Time Details Appointments FOLLOW UP 15 2024 10:30A M Mari Conn PA-C Not available Not available Not available Lab None recorded. Referral None recorded. Procedures None recorded. Surgeries None recorded. Imaging LDCT, chest, for lung cancer screening - 1 ppd X 40 years [email or web address] ([facility]), [address], [place], [address], 02/19/2025 11:38:07 Medication Orders ketorolac 60 mg/2 mL intramusc ular solution [address] [facility], [address], [address], 02/12/2025 10:21:57 Depo-Medr ol 80 mg/mL suspensio n for injection [address] [facility], [address] [place], [address], 02/12/2025 10:21:57 tizanidin e 4 mg tablet 2024 025 [facility], [address] [place] [address], [address], 02/12/2025 10:22:46 Patient TargetsNo targets recorded. Patient Instructions Encounter Date Encounter Id Patient Instructions Last Modified By Organization Details Last Modified Time 02/12/2025 [id number] deciding about using medicines to quit smoking Not available 02/12/2025 10:35:15 Quitting Tobacco : Care Instructions [email or web address] Not available 02/12/2025 10:35:14 back pain: care instructions Not available 02/12/2025 10:21:57 herniated disc: care instructions [email or web address] Not available 02/12/2025 10:22:41 Reason for Referral None Reported. Problems Name Problem SNOMED Code Status Onset Date Resolution Date Notes Provider Name and Address Organization Details Recorded Time Hyperlipidemia 21750563 Active 2023 YUE Maradiaga [address] [place] [address], [phone] 8, [employer] 15:14:11 Vitamin D deficiency 23199800 Active 2023 YUE Maradiaga [address] [place] [address], [address] 8, [employer] 4 15:14:16 Displacement of lumbar intervertebral disc without myelopathy 99863960 Active 2023 YUE Maradiaga [address] [place] [address], [address] 8, [employer] 4 15:14:07 Seasonal allergic rhinitis 286360047 Active 2024 YUE Maradiaga [address] [place] [address], 260[address]693 8, [employer] 5 10:10:00 Tobacco dependence syndrome 99662926 Active 2024 YUE Maradiaga [address] [place] [address], [address]95[address]733 8, [employer] 5 10:34:57 Problem Notes None recorded. Procedures Surgical History Date Name Laterality Status Provider Name and Address Organization Details Recorded Time 01/13/20 Most Recent Mammogram completed [employer] 10/26/2024 15:22:48 Appendectomy completed [employer] 01/08/2025 09:46:45 Imaging Results None recorded. [...] No t Available tizanidine 4 mg tablet TAKE 1 TABLET BY MOUTH THREE TIMES DAILY NEEDED active Not Available Not Available No t Available hydrocodone 5 mg-acetamin ophen 325 mg tablet TAKE 1 TABLET BY MOUTH EVERY 6 HOURS active Not Available Not Available No t Available Depo-Medrol 80 mg/mL suspension for injection Take 1 mL by injection route. 2024 active Not Available Not Available Not Avai lable ergocalcife rol (vitamin D2) 1,250 mcg (50,000 unit) capsule TAKE 1 CAPSULE BY MOUTH ONCE A WEEK FOR VITAMIN D DEFICIENC Y active Not Available Not Available No t Available methylpredn isolone 4 mg tablets in a dose pack TAKE BY MOUTH DIRECTED ON INSIDE OF PACKAGE 06/19 completed Not Available Not Available Not Available ketorolac 60 mg/2 mL intramuscul ar solution Inject 2 mL by intramusc ular route. 2024 active Not Available Not Available Not Avai lable levocetiriz ine 5 mg tablet TAKE 1 [...] mass index (BMI) Body weight Body temperature Oxygen saturation Oxygen saturation in Arterial blood by Pulse oximetry Heart rate Systolic And Diastolic Provider Name and Address Organization Details Last Updated DateTime 5 157.48 cm 32.8 kg/m2 07404.4 7 g 97.8 [degF] 96 % 96 % 78 /min 116/80 mm[Hg] [employer] 5 08:56:54 Social History Question Answer Notes LastModified by Organizat ion Details LastModified Time Tobacco Smoking Status Current Every Day Smoker [employer], [employer]. 06/19/2024 09:25:14 Do You Have An Advance [...] Information not available 06/19/2024 What Type Of Conference Manager Do You Use? None Information not available [...] Or The Highest Degree You Have Received? [id number] Information not available 06/19/2024 Have There Been Any Changes To Your Family Or Social Situation? No Information no t available 06/19/2024 Are There Any Guns Present In Your Home? Yes Information not available 06/19/2024 Which Of Your Hands Is Dominant? Right Information not available 06/19/2024 What Is Your Home Situation? Mother Information not available 06/19/2024 Do You Have A Medical Power Of Leading Firefighter? No Information not available 06/19/2024 What Was The Date Of Your Most Recent Tobacco Screening? 02/12/2025 Information not available 02/12/2025 Do You Have Any Pets? No Information [...] What Date Was Tobacco Cessation Counseling Provided? 02/12/2025 Information not available 02/12/2025 Have You Recently Traveled Abroad? No Information [...] anxious, or unable to sleep at night)? [id number] Information not available 06/19/2024 Do you have [...] N Headaches N Kidney Disease N Allergies/Hayfever Y Heart Problems N Ear or Hearing Problems [...] polysaccharide PPV23 4 completed Rosey Vice null, [employer]. 08/13/2024 15:45:16 Tdap 3 completed Orsey Vice null, [employer] 08/13/2024 10:29:23 Tdap 7 completed Rosey Vice null, [employer]. 08/13/2024 10:29:23 Td (adult), 2 Lf tetanus toxoid, preservative free, adsorbed 0 completed Rosey Vice null, [employer] 08/13/2024 10:29:23 Hep B, adult 4 completed Rosey Vice null, [employer] 08/13/2024 10:29:23 Hep B, adult 4 completed Rosey Vice null, [employer] 08/13/2024 10:29:23 Hep B, adult 4 completed Rosey Vice null, [employer] 08/13/2024 10:29:23 Hep A, adult 9 completed Rosey Vice null, [employer] 08/13/2024 10:29:23 Past Encounters Encounter ID Performer Location Encounter Start Date Encounter Closed Date Diagnosis/Indication Diagnosis SNOMED-CT Code Diagnosis ICD10 Code Diagnosis Note [id number] YUE Maradiaga [facility] [address] [place] [id number] 2 02/12/2025 08:52:09 02/12/2025 09:22:43 Backache 214400505 M54.9 M54.30 Displaceme nt of lumbar intervertebral disc without myelopathy 21192638 M51.[address] Richter Tobacco de pendence syndrome 75048155 F17.200 Health Concerns Section Related Observation LastModified by Organization Detai ls LastModified Time None Recorded Concern Status LastModified by Organization Details LastModified Time None Recorded Payers Encounter Date Sequence Insurance Name Policy Number Policy Inman Covered Member ID Inman Member ID Guarantor Name 02/12/2025 1 [facility] (MEDICAID HMO) Essence Justin [id number] Essence Phillipsump Notes Date Note Type Note Provider Name and Address Organization Details Recorded Time 02/12/2025 text/html Patient presents for followup. History of chronic low back pain. Takes Isabela for pain. Also gets injections at pain management. Due for next injection in a few weeks. Usually is doing pretty well, but states that she has been painting around the bottom of her porch and has pain radiating down her right leg. YUE Maradiaga [address] [place] [address], [phone], [employer] 02/12/2025 10:35:21 OBGyn Episode No OBEpisode recorded.
--- OUTSIDE RECORDS SUMMARY | 2025-03-03 07:23 | XMS_ITS | Clinical Summary ---
Author Organization Healthcare Address [address] [id number] Care Team Providers Care Superintendent Plant Name Role Phone Dany Connie Chapo TURNER Primary Care Provider [phone] Allergies No known active allergies Medications atorvastatin [...] time each day. 12/19/2022 Active HYDROcodone-jumana taminophen ([place]) 5-325 MG tablet Take 1 tablet (5 [...] of 2) 2019 [facility]-Depression Screening 12/28/2023 12/27/2022 [id number] Vaccine (1 - season) 2024 [facility]-Influenza Vaccine (#1) 2025 [facility]-Pap Smear 2026 2023, 12/27/2022, 09/30/2021 [...] 11:14 AM EDT) Case Report Cytology Case: [id number] Authorizing Provider: Cecy Mei APRN, DNP Collected: 2023 1114 Ordering Location: [facility] Received: 01/11/2023 0940 [facility] First Screen: Nicole Degroot Specimen: ThinPrep Pap Test, Liquid-Based Cervical/Vaginal, CERVICAL/VAGINAL 01/22/2023 3:31 PM EDT [facility] Interpretation NEGATIVE FOR INTRAEPITHELIAL LESION OR MALIGNANCY 01/22/2023 3:31 PM EDT [facility] at 1531 EDT Other Findings Shift in michelle suggestive of bacterial vaginosis. 01/22/2023 3:31 PM EDT [facility] Specimen Adequacy Satisfactory for evaluation; endocervical/ramirez sformation zone component present. Slide scanned and imaged by [employer] System with manual review of all selected ugarte. 01/22/2023 3:31 PM EDT [facility] Cervical cytology is a screening test [...] results is suggested (please call Microbiology at [phone] for results). 01/22/2023 3:31 PM EDT [facility] Menstrual Status Cyclic with Unknown Last Menstrual Period 01/22/2023 3:31 PM EDT [facility] Contraceptive History Not Applicable 01/22/2023 3:31 PM EDT [facility] Screening Type Routine Screen 2022 3:31 PM EDT [facility] High Risk? No 01/22/2023 3:31 PM EDT [facility] HPV Testing Requested? Request HPV Testing if ASCUS (Women 25 Years or Older) 01/22/2023 3:31 PM EDT [facility] Previous Cancer History No 01/22/2023 3:31 PM EDT [facility] Clinical Information Z12.4 - Pap smear for cervical cancer screening [ICD-10-CM] 01/22/2023 3:31 PM EDT [facility] Swab Vaginal and cervical cytologic material / Unknown Non-blood Collection / Unknown 2023 11:14 AM EDT 01/11/2023 9:40 AM EDT us Cecy Mei APRN, [facility] CYTOLOGY ORDERABLES Final Result [facility] [address] [place] [address] from Last 3 Months or Most Recently Relevant to Health Maintenance Insurance [facility] Care Teams Superintendent Plant Relationship Specialty Start Date End Date Mari Conn PA [address] [place] [address] PCP - General 12/27/22
--- OUTSIDE RECORDS SUMMARY | 2025-03-03 07:23 | XMS_ITS | Continuity of Care Document ---
Author Organization [place] - [employer] [facility] Address [address] [place] [address] Assessment No assessment recorded. Plan of Treatment Reminders Order Date Submit Date Provider Last Modified By Organization Details Last Modified Time Details Appointments FOLLOW UP 15 2024 10:30A M Mari Conn PA-C Not available Not available Not available Lab unlisted lab - toxassure flex 19, [id number] 2024 025 [place] [facility], [address] [place] [address], [place], [address], 01/13/2025 00:06:55 Referral None recorded. Procedures None recorded. Surgeries None recorded. Imaging None recorded. Medication Orders Xyzal 5 mg tablet 2024 025 [facility], [address], [address], 01/08/2025 10:11:05 Lastacaft Once Daily Relief 0.25 % eye drops 2024 025 [facility], [address], [address], 01/08/2025 10:11:06 Patient TargetsNo targets recorded. Patient Instructions Encounter Date Encounter Id Patient Instructions Last Modified By Organization Details Last Modified Time 01/08/2025 [id number] seasonal allergies: care instructions Not available 01/08/2025 10:10:47 Reason for Referral None Reported. Problems Name Problem SNOMED Code Status Onset Date Resolution Date Notes Provider Name and Address Organization Details Recorded Time Hyperlipidemia 80545211 Active 2023 YUE Maradiaga [address] [place] [address], [address] 8, [employer] 4 15:14:11 Vitamin D deficiency 85830692 Active 2023 YUE Maradiaga [address] [place] [address], [address]327 8, [employer] 4 15:14:16 Displacement of lumbar intervertebral disc without myelopathy 55683109 Active 2023 YUE Maradiaga [address] [place] [address], [address]211 8, [employer] 4 15:14:07 Seasonal allergic rhinitis 945634380 Active 2024 YUE Maradiaga [address] [place] [address], [address] 8, [employer] 5 10:10:00 Tobacco dependence syndrome 74627502 Active 2024 YUE Maradiaga [address] [place] [address], [address]257 8, [employer] 5 10:34:57 Problem Notes None recorded. Procedures Surgical History Date Name Laterality Status Provider Name and Address Organization Details Recorded Time 01/13/20 24 Most Recent Mammogram completed [employer] 10/26/2024 15:22:48 Appendectomy completed [employer] 01/08/2025 09:46:45 Imaging Results None recorded. [...] MOUTH 4 TIMES DAILY FOR 10 DAYS 10/25 /2024 completed Not Available Not Available Not Available [...] Pulse oximetry Heart rate Body temperature Systolic And Diastolic Provider Name and Address Organization Details Last Updated DateTime 157.48 cm 33.3 kg/m2 19408.5 3 g 96 % 96 % 70 /min 98.1 [degF] 120/78 mm[Hg] Rosey Vice [place] - [employer] 09:45:53 Social History Question Answer Notes LastModified by Organizat ion Details LastModified Time Tobacco Smoking Status Current Every Day Smoker Rosey Smith ryan, [employer] 06/19/2024 09:25:14 Do You Have An Advance [...] Information not available 06/19/2024 What Type Of Seed Pelleter Do You Use? None Information not available [...] Or The Highest Degree You Have Received? [id number] Information not available 06/19/2024 Have There Been Any Changes To Your Family Or Social Situation? No Information no t available 06/19/2024 Are There Any Guns Present In Your Home? Yes Information not available 06/19/2024 Which Of Your Hands Is Dominant? Right Information not available 06/19/2024 What Is Your Home Situation? Mother Information not available 06/19/2024 Do You Have A Medical Power Of Philosophy Faculty Member? No Information not available 06/19/2024 What Was [...] anxious, or unable to sleep at night)? [id number] Information not available 06/19/2024 Do you have [...] polysaccharide PPV23 4 completed Rosey Vice null, [employer] 08/13/2024 15:45:16 Tdap 3 completed Rosey Vice null, [employer] 08/13/2024 10:29:23 Tdap 7 completed Rosey Vice null, [employer] 08/13/2024 10:29:23 Td (adult), 2 Lf tetanus toxoid, preservative free, adsorbed 0 completed Rosey Vice null, [employer] 08/13/2024 10:29:23 Hep B, adult 4 completed Rosey Vice null, [employer] 08/13/2024 10:29:23 Hep B, adult 4 completed Rosey Vice null, [employer] 08/13/2024 10:29:23 Hep B, adult 4 completed Rosey Vice null, [employer] 08/13/2024 10:29:23 Hep A, adult 9 completed Rosey Vice null, [employer] 08/13/2024 10:29:23 Past Encounters Encounter ID Performer Location Encounter Start Date Encounter Closed Date Diagnosis/Indication Diagnosis SNOMED-CT Code Diagnosis ICD10 Code Diagnosis Note [id number] YUE Maradiaga [facility] [address] [place] [address] 01/08/2025 09:30:16 01/08/2025 10:34:50 Long-term current use of drug therapy 701294102 Z79.899 Seasonal a llergic rhinitis 273793577 J30.2 Health Concerns Section Related Observation LastModified by Organization Detai ls LastModified Time None Recorded Concern Status LastModified by Organization Details LastModified Time None Recorded Payers Encounter Date Sequence Insurance Name Policy Number Policy In[place] Covered Member ID Inman Member ID Guarantor Name 01/08/2025 1 [facility] (MEDICAID HMO) Essence Justin [id number] Essence Justin Notes Date Note Type Note Provider Name and Address Organization Details Recorded Time 01/08/2025 text/html Patient presents with sneezing, itchy eyes, watery eyes, scratchy throat. No fever. YUE Maradiaga [address] [place] [address], [phone], [facility] 01/08/2025 12:54:52 OBGyn Episode No OBEpisode recorded.
--- OUTSIDE RECORDS SUMMARY | 2025-03-03 07:23 | XMS_ITS | Data Portability ---
Author Organization [employer] [facility] Address [address] [place] [address] Assessment No assessment recorded. Plan of Treatment Reminders Order Date Submit Date Provider Last Modified By Organization Details Last Modified Time Details Appointments FOLLOW UP 15 2024 10:30A M Mari Conn PA-C Not available Not available Not available Lab unlisted lab - toxassure flex 19, [id number] 2024 025 [facility] ([facility], [address] [place] [address], [place], [address], 01/13/2025 00:06:55 vitamin D, 25-hydrox y, total, serum [address] (Lab), [address], [place], [address], 08/21/2024 08:53:20 CMP, serum or plasma [address] (Lab), [address], [place], [address], 08/21/2024 08:53:20 CBC w/ auto diff [address] (Lab), [address] [place] [address] [address], [place], [address], 08/21/2024 08:53:20 TSH, ultra-sen sitive, serum [address] (Lab), [address], [place], [address], 08/21/2024 08:53:20 HIV 1 + 2, meaningfu l use set [address] (Lab), [address], [place], [address], 08/21/2024 08:53:20 Hepatitis C IgG Ab, qual, serum [address] (Lab), [address], [place], [address], 08/21/2024 08:53:20 lipid panel, serum [address] (Lab), [address], [place], [address], 08/21/2024 08:53:19 unlisted lab - toxassure flex 19, [id number] 2023 024 [facility] ([facility], [address] [place] [address], [address], 06/25/2024 01:06:43 Referral None recorded. Procedures None recorded. Surgeries None recorded. Imaging LDCT, chest, for lung cancer screening - 1 ppd X 40 years [id number] ([facility]), [address], [place], [address], 02/19/2025 11:38:07 Medication Orders ketorolac 60 mg/2 mL intramusc ular solution [id number] [place] [address] Pharmacy 591, [address] [facility], [place], [address], 02/12/2025 10:21:57 Depo-Medr ol 80 mg/mL suspensio n for injection [address] [facility], [address], [address], 02/12/2025 10:21:57 tizanidin e 4 mg tablet 2024 025 [facility], [address], [address], 02/12/2025 10:22:46 Xyzal 5 mg tablet 2024 025 [facility], [address], [address], 01/08/2025 10:11:05 Lastacaft Once Daily Relief 0.25 % eye drops 2024 025 [facility], [address], [address], 01/08/2025 10:11:06 cholecalc iferol (vitamin D3) 50 mcg (2,000 unit) capsule 2024 025 [facility], [address], [address], 10/26/2024 15:41:53 ergocalci ferol (vitamin D2) 1,250 mcg (50,000 unit) capsule 2024 025 [facility], [address], [address], 10/26/2024 15:41:54 cholecalc iferol (vitamin D3) 50 mcg (2,000 unit) capsule 2023 024 [facility], [address], [address], 06/19/2024 09:55:24 ergocalci ferol (vitamin D2) 1,250 mcg (50,000 unit) capsule 2023 024 [facility], [address] [place], [address], 06/19/2024 09:55:22 atorvasta tin 10 mg tablet 2023 024 [facility], [address] [place], [address], 06/19/2024 09:55:24 Patient TargetsNo targets recorded. Patient Instructions Encounter Date Encounter Id Patient Instructions Last Modified By Organization Details Last Modified Time 06/19/2024 [id number] herniated disc: care instructions [email or web address] Not available 06/19/2024 09:55:16 learning about healthy weight [id number] Not available 06/19/2024 09:55:16 08/13/2024 [id number] herniated disc: care instructions [id number] Not available 08/13/2024 15:45:10 high cholesterol : care instructions [email or web address] Not available 08/13/2024 11:04:38 10/26/2024 [id number] herniated disc: care instructions [email or web address] Not available 10/26/2024 16:41:16 01/08/2025 [id number] seasonal allergies: care instructions [id number] Not available 01/08/2025 10:10:47 02/12/2025 [id number] deciding about using medicines to quit smoking [id number] Not available 02/12/2025 10:35:15 Quitting Tobacco : Care Instructions Not available 02/12/2025 10:35:14 back pain: care instructions [id number] Not available 02/12/2025 10:21:57 herniated disc: care instructions Not available 02/12/2025 10:22:41 Reason for Referral None Reported. Results Created Date Observation Date Name Description Value Unit Range Abnormal Flag Note LastModifiedBy Organization Detail LastModifiedTime 06/19/2006/24/2024 TOXAS SURE FLEX 19, UR summary report FINAL ===== ===== ===== ===== ===== ===== ===== ===== ===== ===== ===== ===== ===== === Opiat e Class , MS, Ur RFX ToxAs sure Flex 19, Ur ===== ===== ===== ===== ===== ===== ===== ===== ===== ===== ===== ===== ===== === Test Resul t Flag Units Drug Prese nt [place] codon e 53 ng/mg creat [place] morph one 80 ng/mg creat Dihyd rocod eine 43 ng/mg creat Norhy droco done 97 ng/mg creat Sourc es of hydro codon e inclu de sched uled presc ripti on medic ation s. [place] morph one, dihyd rocod eine and norhy droco done are expec radha metab olite s of hydro codon e. [place] morph one and dihyd rocod eine are [...] ángel consu ltati on, pleas e call . ===== ===== ===== ===== ===== ===== ===== ===== ===== ===== ===== ===== ===== === Not Available [facility] ([facility]) [address] [place], [address], 06/25/2024 01:06:43 06/19/2006/24/2024 TOXAS SURE FLEX 19, UR pdf . Not Available [facility] ([facility]) [address] [place], [address], 06/25/2024 01:06:43 06/19/2006/24/2024 TOXAS SURE FLEX 19, UR creatinine 148 mg/dL REFER ENCE RANGE : Ref Range >=20 Not Available [facility] ([facility]) [address] [place], [address], 06/25/2024 01:06:43 06/19/2006/24/2024 TOXAS SURE FLEX 19, UR amphetamines ia NEGATI VE NG/mL cutoff :300 Not Available [facility] ([facility]) [address] [place], [address], 06/25/2024 01:06:43 06/19/2006/24/2024 TOXAS SURE FLEX 19, UR benzodiazepi jozef NEGATI VE Not Available [facility] ([facility]) [address] [place], [address], 06/25/2024 01:06:43 06/19/2006/24/2024 TOXAS SURE FLEX 19, UR diazepam NOT DETECT ED NG/mg _crea t Not Available [facility] ([facility]) [address] [place], [address], 06/25/2024 01:06:43 06/19/2006/24/2024 TOXAS SURE FLEX 19, UR desmethyldia zepam NOT DETECT ED NG/mg _crea t Not Available [facility] ([facility]) [address], [place], [place], [address], 06/25/2024 01:06:43 06/19/20 24 06/24/2024 TOXAS SURE FLEX 19, UR oxazepam NOT DETECT ED NG/mg _crea t Not Available [facility] ([facility]) [address], [place], [place], [address], 06/25/2024 01:06:43 06/19/2006/24/2024 TOXAS SURE FLEX 19, UR temazepam NOT DETECT ED NG/mg _crea t Expec radha metab olism of benzo diaze pine class drugs : Paren t Drug Detec radha Metab olite s ----- ----- - ----- ----- ----- ----- Diaze beronica: Desme thyld iazep am, Temaz epam, Oxaze bernoica Chlor diaze poxid e: Desme thyld iazep am, Oxaze beronica Clora zepat e: Desme thyld iazep am, Oxaze beronica Halaz epam: Desme thyld iazep am, Oxaze beronica Temaz epam: Oxaze beronica Oxaze beronica: None Not Available [facility] ([facility]) [address], [place], [place], [address], 06/25/2024 01:06:43 06/19/20 24 06/24/2024 TOXAS SURE FLEX 19, UR alprazolam NOT DETECT ED NG/mg _crea t Not Available [facility] ([facility]) [address], [place], [place], [address], 06/25/2024 01:06:43 06/19/20 24 06/24/2024 TOXAS SURE FLEX 19, UR alpha-hydrox yalprazolam NOT DETECT ED NG/mg _crea t Not Available [facility] ([facility]) [address], [place], [place], [address], 06/25/2024 01:06:43 06/19/2006/24/2024 TOXAS SURE FLEX 19, UR desalkylflur azepam NOT DETECT ED NG/mg _crea t Not Available [facility] ([facility]) [address] [place], [address], 06/25/2024 01:06:43 06/19/2006/24/2024 TOXAS SURE FLEX 19, UR lorazepam NOT DETECT ED NG/mg _crea t Not Available [facility] ([facility]) [address] [place], [address], 06/25/2024 01:06:43 06/19/2006/24/2024 TOXAS SURE FLEX 19, UR alpha-hydrox ytriazolam NOT DETECT ED NG/mg _crea t Not Available [facility] ([facility]) [address], [place], [place], [address], 06/25/2024 01:06:43 06/19/2006/24/2024 TOXAS SURE FLEX 19, UR clonazepam NOT DETECT ED NG/mg _crea t Not Available [facility] ([facility]) [address] [place], [address], 06/25/2024 01:06:43 06/19/2006/24/2024 TOXAS SURE FLEX 19, UR 7-aminoclona zepam NOT DETECT ED NG/mg _crea t Not Available [facility] ([facility]) [address] [place], [address], 06/25/2024 01:06:43 06/19/2006/24/2024 TOXAS SURE FLEX 19, UR midazolam NOT DETECT ED NG/mg _crea t Not Available [facility] ([facility]) [address] [place], [address], 06/25/2024 01:06:43 06/19/20 24 06/24/2024 TOXAS SURE FLEX 19, UR alpha-hydrox ymidazolam NOT DETECT ED NG/mg _crea t Not Available [facility] ([facility]) [address] [place], [address], 06/25/2024 01:06:43 06/19/2006/24/2024 TOXAS SURE FLEX 19, UR flunitrazepa m NOT DETECT ED NG/mg _crea t Not Available [facility] ([facility]) [address] [place], [address], 06/25/2024 01:06:43 06/19/2006/24/2024 TOXAS SURE FLEX 19, UR desmethylflu nitrazepam NOT DETECT ED NG/mg _crea t Not Available [facility] ([facility]) [address] [place], [address], 06/25/2024 01:06:43 06/19/2006/24/2024 TOXAS SURE FLEX 19, UR cocaine metabolite ia NEGATI VE NG/mL cutoff :150 Not Available [facility] ([facility]) [address] [place] [address], [address], 06/25/2024 01:06:43 06/19/2006/24/2024 TOXAS SURE FLEX 19, UR ethanol biomarkers ia NEGATI VE NG/mL cutoff :500 Not Available [facility] ([facility]) [address] [place], [address], 06/25/2024 01:06:43 06/19/2006/24/2024 TOXAS SURE FLEX 19, UR cannabinoids ia NEGATI VE NG/mL cutoff :20 Not Available [facility] ([facility]) [address] [place] [address], [address], 06/25/2024 01:06:43 06/19/2006/24/2024 TOXAS SURE FLEX 19, UR 6-acetylmorp josie ia NEGATI VE NG/mL cutoff :10 Not Available [facility] ([facility]) [address] [place] [address], [address], 06/25/2024 01:06:43 06/19/2006/24/2024 TOXAS SURE FLEX 19, UR opiate class ia COMMEN T NG/mL cutoff :100 Furth er testi ng indic ated Not Available [facility] ([facility]) [address] [place], [address], 06/25/2024 01:06:43 06/19/2006/24/2024 TOXAS SURE FLEX 19, UR oxycodone class ia NEGATI VE NG/mL cutoff :100 Not Available [facility] ([facility]) [address] [place], [address], 06/25/2024 01:06:43 06/19/2006/24/2024 TOXAS SURE FLEX 19, UR methadone ia NEGATI VE NG/mL cutoff :100 Not Available [facility] ([facility]) [address] [place] [address], [address], 06/25/2024 01:06:43 06/19/20 24 06/24/2024 TOXAS SURE FLEX 19, UR methadone mtb ia NEGATI VE NG/mL cutoff :100 Not Available [facility] ([facility]) [address] [place] [address], [address], 06/25/2024 01:06:43 06/19/20 24 06/24/2024 TOXAS SURE FLEX 19, UR buprenorphin e ia NEGATI VE NG/mL cutoff :5.0 Not Available [facility] ([facility]) [address] [place] [address], [address], 06/25/2024 01:06:43 06/19/20 24 06/24/2024 TOXAS SURE FLEX 19, UR fentanyl ia NEGATI VE NG/mL cutoff :2.0 Not Available [facility] ([facility]) [address] [place], [address], 06/25/2024 01:06:43 06/19/2006/24/2024 TOXAS SURE FLEX 19, UR tapentadol ia NEGATI VE NG/mL cutoff :200 Not Available [facility] ([facility]) [address] [place], [address], 06/25/2024 01:06:43 06/19/2006/24/2024 TOXAS SURE FLEX 19, UR propoxyphene ia NEGATI VE NG/mL cutoff :300 Not Available [facility] ([facility]) [address] [place], [address], 06/25/2024 01:06:43 06/19/2006/24/2024 TOXAS SURE FLEX 19, UR tramadol ia NEGATI VE NG/mL cutoff :200 Not Available [facility] ([facility]) [address] [place], [address], 06/25/2024 01:06:43 06/19/2006/24/2024 TOXAS SURE FLEX 19, UR methylphenid ate ia NEGATI VE NG/mL cutoff :100 Not Available [facility] ([facility]) [address] [place], [address], 06/25/2024 01:06:43 06/19/2006/24/2024 TOXAS SURE FLEX 19, UR barbiturates ia NEGATI VE NG/mL cutoff :200 Not Available [facility] ([facility]) [address] [place] [address], [address], 06/25/2024 01:06:43 06/19/2006/24/2024 TOXAS SURE FLEX 19, UR phencyclidin e ia NEGATI VE NG/mL cutoff :25 Not Available [facility] ([facility]) [address] [place], [address], 06/25/2024 01:06:43 06/19/20 24 06/24/2024 TOXAS SURE FLEX 19, UR gabapentin ia NEGATI VE ug/mL cutoff :1.0 Not Available [facility] ([facility]) [address] [place], [address], 06/25/2024 01:06:43 06/19/2006/24/2024 TOXAS SURE FLEX 19, UR anticonvulsa nts NEGATI VE Not Available [facility] ([facility]) [address] [place], [address], 06/25/2024 01:06:43 06/19/2006/24/2024 TOXAS SURE FLEX 19, UR pregabalin NOT DETECT ED Not Available [facility] ([facility]) [address] [place] [address], [address], 06/25/2024 01:06:43 06/19/2006/24/2024 TOXAS SURE FLEX 19, UR carisoprodol ia NEGATI VE NG/mL cutoff :100 Not Available [facility] ([facility]) [address] [place], [address], 06/25/2024 01:06:43 06/19/2006/24/2024 OPIAT E CLASS , MS, UR RFX opiate class +POSIT ELA+ Not Available [facility] ([facility]) [address] [place], [address], 06/25/2024 01:06:43 06/19/2006/24/2024 OPIAT E CLASS , MS, UR RFX codeine NOT DETECT ED NG/mg _crea t Not Available [facility] ([facility]) [address] [place] [address], [address], 06/25/2024 01:06:43 06/19/2006/24/2024 OPIAT E CLASS , MS, UR RFX morphine NOT DETECT ED NG/mg _crea t Not Available [facility] ([facility]) [address], [place], [place], [address], 06/25/2024 01:06:43 06/19/2006/24/2024 OPIAT E CLASS , MS, UR RFX normorphine NOT DETECT ED NG/mg _crea t Not Available [facility] ([facility]) [address] [place], [address], 06/25/2024 01:06:43 06/19/2006/24/2024 OPIAT E CLASS , MS, UR RFX norcodeine NOT DETECT ED NG/mg _crea t Not Available [facility] ([facility]) [address], [place], [place], [address], 06/25/2024 01:06:43 06/19/2006/24/2024 OPIAT E CLASS , MS, UR RFX hydrocodone 53 NG/mg _crea t Not Available [facility] ([facility]) [address] [place], [address], 06/25/2024 01:06:43 06/19/2006/24/2024 OPIAT E CLASS , MS, UR RFX hydromorphon e 80 NG/mg _crea t Not Available [facility] ([facility]) [address] [place], [address], 06/25/2024 01:06:43 06/19/2006/24/2024 OPIAT E CLASS , MS, UR RFX dihydrocodei ne 43 NG/mg _crea t Not Available [facility] ([facility]) [address] [place], [address], 06/25/2024 01:06:43 06/19/2006/24/2024 OPIAT E CLASS , MS, UR RFX norhydrocodo ne 97 NG/mg _crea t Expec radha metab olism of opiat e class drugs : Paren t Drug Detec radha Metab olite s ----- ----- - ----- ----- ----- ----- Codei ne: Major : Morph ine, [place] deine Minor : [place] codon e, [place] morph one, Dihyd rocod eine, Norhy droco done, Normo rphin e Morph ine: Major : Normo rphin e Minor : [place] morph one [place] codon e: [place] morph one, Dihyd rocod eine, Norhy droco done [place] morph one: None Dihyd rocod eine: None Heroi n: 6-Ayo tylmo rphin e (if inclu ded), Morph ine, Normo rphin e Codei ne, in small amoun ts in emmanuel rison to morph ine, is often detec radha when heroi n is the sourc e drug. Not Available [facility] ([facility]) [address], [place], [place], [address], 06/25/2024 01:06:43 01/09/2001/12/2025 TOXAS SURE FLEX 19, UR summary report FINAL ===== ===== ===== ===== ===== ===== ===== ===== ===== ===== ===== ===== ===== === Opiat e Class , MS, Ur RFX ToxAs sure Flex 19, Ur ===== ===== ===== ===== ===== ===== ===== ===== ===== ===== ===== ===== ===== === Test Resul t Flag Units Drug Prese nt [place] morph one 102 ng/mg creat Norhy droco done 97 ng/mg creat [place] morph one and norhy droco done are expec radha metab olite s of hydro codon e. Sourc es of hydro codon e are sched uled presc ripti on medic ation s. [place] morph one is also avail able as [...] ángel consu ltati on, pleas e call . ===== ===== ===== ===== ===== ===== ===== ===== ===== ===== ===== ===== ===== === Not Available [facility] ([facility]) [address] [place], [address], 01/13/2025 00:06:55 01/09/20 25 01/12/2025 TOXAS SURE FLEX 19, UR pdf . Not Available [facility] ([facility]) [address], [place], [place], [address], 01/13/2025 00:06:55 01/09/20 25 01/12/2025 TOXAS SURE FLEX 19, UR creatinine 195 mg/dL >=20 REFER ENCE RANGE : Ref Range >=20 Not Available [facility] ([facility]) [address] [place], [address], 01/13/2025 00:06:55 01/09/20 25 01/12/2025 TOXAS SURE FLEX 19, UR amphetamines ia Negati ve NG/mL cutoff :300 Not Available [facility] ([facility]) [address] [place], [address], 01/13/2025 00:06:55 01/09/20 25 01/12/2025 TOXAS SURE FLEX 19, UR benzodiazepi jozef Negati ve Not Available [facility] ([facility]) [address] [place], [address], 01/13/2025 00:06:55 01/09/20 25 01/12/2025 TOXAS SURE FLEX 19, UR diazepam Not Detect ed NG/mg _crea t Not Available [facility] ([facility]) [address] [place], [address], 01/13/2025 00:06:55 01/09/20 25 01/12/2025 TOXAS SURE FLEX 19, UR desmethyldia zepam Not Detect ed NG/mg _crea t Not Available [facility] ([facility]) [address] [place], [address], 01/13/2025 00:06:55 01/09/20 25 01/12/2025 TOXAS SURE FLEX 19, UR oxazepam Not Detect ed NG/mg _crea t Not Available [facility] ([facility]) [address] [place], [address], 01/13/2025 00:06:55 01/09/20 25 01/12/2025 TOXAS SURE FLEX 19, UR temazepam Not Detect ed NG/mg _crea t Expec radha metab olism [...] beronica Oxaze beronica: None Not Available [facility] ([facility]) [address] [place], [address], 01/13/2025 00:06:55 01/09/20 25 01/12/2025 TOXAS SURE FLEX 19, UR alprazolam Not Detect ed NG/mg _crea t Not Available [facility] ([facility]) [address] [place], [address], 01/13/2025 00:06:55 01/09/20 25 01/12/2025 TOXAS SURE FLEX 19, UR alpha-hydrox yalprazolam Not Detect ed NG/mg _crea t Not Available [facility] ([facility]) [address] [place], [address], 01/13/2025 00:06:55 01/09/20 25 01/12/2025 TOXAS SURE FLEX 19, UR desalkylflur azepam Not Detect ed NG/mg _crea t Not Available [facility] ([facility]) [address] [place], [address], 01/13/2025 00:06:55 01/09/20 25 01/12/2025 TOXAS SURE FLEX 19, UR lorazepam Not Detect ed NG/mg _crea t Not Available [facility] ([facility]) [address] [place], [address], 01/13/2025 00:06:55 01/09/20 25 01/12/2025 TOXAS SURE FLEX 19, UR alpha-hydrox ytriazolam Not Detect ed NG/mg _crea t Not Available [facility] ([facility]) [address] [place], [address], 01/13/2025 00:06:55 01/09/20 25 01/12/2025 TOXAS SURE FLEX 19, UR clonazepam Not Detect ed NG/mg _crea t Not Available [facility] ([facility]) [address] [place], [address], 01/13/2025 00:06:55 01/09/20 25 01/12/2025 TOXAS SURE FLEX 19, UR 7-aminoclona zepam Not Detect ed NG/mg _crea t Not Available [facility] ([facility]) [address] [place], [address], 01/13/2025 00:06:55 01/09/20 25 01/12/2025 TOXAS SURE FLEX 19, UR midazolam Not Detect ed NG/mg _crea t Not Available [facility] ([facility]) [address] [place], [address], 01/13/2025 00:06:55 01/09/20 25 01/12/2025 TOXAS SURE FLEX 19, UR alpha-hydrox ymidazolam Not Detect ed NG/mg _crea t Not Available [facility] ([facility]) [address] [place], [address], 01/13/2025 00:06:55 01/09/20 25 01/12/2025 TOXAS SURE FLEX 19, UR flunitrazepa m Not Detect ed NG/mg _crea t Not Available [facility] ([facility]) [address] [place], [address], 01/13/2025 00:06:55 01/09/20 25 01/12/2025 TOXAS SURE FLEX 19, UR desmethylflu nitrazepam Not Detect ed NG/mg _crea t Not Available [facility] ([facility]) [address] [place], [address], 01/13/2025 00:06:55 01/09/20 25 01/12/2025 TOXAS SURE FLEX 19, UR cocaine metabolite ia Negati ve NG/mL cutoff :150 Not Available [facility] ([facility]) [address] [place], [address], 01/13/2025 00:06:55 01/09/20 25 01/12/2025 TOXAS SURE FLEX 19, UR ethanol biomarkers ia Negati ve NG/mL cutoff :500 Not Available [facility] ([facility]) [address] [place], [address], 01/13/2025 00:06:55 01/09/20 25 01/12/2025 TOXAS SURE FLEX 19, UR cannabinoids ia Negati ve NG/mL cutoff :20 Not Available [facility] ([facility]) [address] [place], [address], 01/13/2025 00:06:55 01/09/20 25 01/12/2025 TOXAS SURE FLEX 19, UR 6-acetylmorp josie ia Negati ve NG/mL cutoff :10 Not Available [facility] ([facility]) [address] [place], [address], 01/13/2025 00:06:55 01/09/20 25 01/12/2025 TOXAS SURE FLEX 19, UR opiate class ia COMMEN T NG/mL cutoff :100 Furth er testi ng indic ated Not Available [facility] ([facility]) [address] [place], [address], 01/13/2025 00:06:55 01/09/20 25 01/12/2025 TOXAS SURE FLEX 19, UR oxycodone class ia Negati ve NG/mL cutoff :100 Not Available [facility] ([facility]) [address] [place], [address], 01/13/2025 00:06:55 01/09/20 25 01/12/2025 TOXAS SURE FLEX 19, UR methadone ia Negati ve NG/mL cutoff :100 Not Available [facility] ([facility]) [address] [place], [address], 01/13/2025 00:06:55 01/09/20 25 01/12/2025 TOXAS SURE FLEX 19, UR methadone mtb ia Negati ve NG/mL cutoff :100 Not Available [facility] ([facility]) [address] [place], [address], 01/13/2025 00:06:55 01/09/20 25 01/12/2025 TOXAS SURE FLEX 19, UR buprenorphin e ia Negati ve NG/mL cutoff :5.0 Not Available [facility] ([facility]) [address] [place], [address], 01/13/2025 00:06:55 01/09/20 25 01/12/2025 TOXAS SURE FLEX 19, UR fentanyl ia Negati ve NG/mL cutoff :2.0 Not Available [facility] ([facility]) [address] [place], [address], 01/13/2025 00:06:55 01/09/20 25 01/12/2025 TOXAS SURE FLEX 19, UR tapentadol ia Negati ve NG/mL cutoff :200 Not Available [facility] ([facility]) [address] [place], [address], 01/13/2025 00:06:55 01/09/20 25 01/12/2025 TOXAS SURE FLEX 19, UR propoxyphene ia Negati ve NG/mL cutoff :300 Not Available [facility] ([facility]) [address] [place], [address], 01/13/2025 00:06:55 01/09/20 25 01/12/2025 TOXAS SURE FLEX 19, UR tramadol ia Negati ve NG/mL cutoff :200 Not Available [facility] ([facility]) [address] [place], [address], 01/13/2025 00:06:55 01/09/20 25 01/12/2025 TOXAS SURE FLEX 19, UR methylphenid ate ia Negati ve NG/mL cutoff :100 Not Available [facility] ([facility]) [address] [place], [address], 01/13/2025 00:06:55 01/09/20 25 01/12/2025 TOXAS SURE FLEX 19, UR barbiturates ia Negati ve NG/mL cutoff :200 Not Available [facility] ([facility]) [address] [place], [address], 01/13/2025 00:06:55 01/09/20 25 01/12/2025 TOXAS SURE FLEX 19, UR phencyclidin e ia Negati ve NG/mL cutoff :25 Not Available [facility] ([facility]) [address] [place], [address], 01/13/2025 00:06:55 01/09/20 25 01/12/2025 TOXAS SURE FLEX 19, UR gabapentin ia Negati ve ug/mL cutoff :1.0 Not Available [facility] ([facility]) [address] [place], [address], 01/13/2025 00:06:55 01/09/20 25 01/12/2025 TOXAS SURE FLEX 19, UR anticonvulsa nts Negati ve Not Available [facility] ([facility]) [address] [place], [address], 01/13/2025 00:06:55 01/09/20 25 01/12/2025 TOXAS SURE FLEX 19, UR pregabalin Not Detect ed Not Available [facility] ([facility]) [address] [place], [address], 01/13/2025 00:06:55 01/09/20 25 01/12/2025 TOXAS SURE FLEX 19, UR carisoprodol ia Negati ve NG/mL cutoff :100 Not Available [facility] ([facility]) [address] [place], [address], 01/13/2025 00:06:55 01/09/20 25 01/12/2025 OPIAT E CLASS , MS, UR RFX opiate class +POSIT ELA+ Not Available [facility] ([facility]) [address] [place], [address], 01/13/2025 00:06:56 01/09/2001/12/2025 OPIAT E CLASS , MS, UR RFX codeine Not Detect ed NG/mg _crea t Not Available [facility] ([facility]) [address] [place], [address], 01/13/2025 00:06:56 01/09/20 25 01/12/2025 OPIAT E CLASS , MS, UR RFX morphine Not Detect ed NG/mg _crea t Not Available [facility] ([facility]) [address] [place], [address], 01/13/2025 00:06:56 01/09/20 25 01/12/2025 OPIAT E CLASS , MS, UR RFX normorphine Not Detect ed NG/mg _crea t Not Available [facility] ([facility]) [address] [place], [address], 01/13/2025 00:06:56 01/09/20 25 01/12/2025 OPIAT E CLASS , MS, UR RFX norcodeine Not Detect ed NG/mg _crea t Not Available [facility] ([facility]) [address] [place], [address], 01/13/2025 00:06:56 01/09/20 25 01/12/2025 OPIAT E CLASS , MS, UR RFX hydrocodone Not Detect ed NG/mg _crea t Not Available [facility] ([facility]) [address] [place], [address], 01/13/2025 00:06:56 01/09/20 25 01/12/2025 OPIAT E CLASS , MS, UR RFX hydromorphon e 102 NG/mg _crea t Not Available [facility] ([facility]) [address] [place], [address], 01/13/2025 00:06:56 01/09/20 25 01/12/2025 OPIAT E CLASS , MS, UR RFX dihydrocodei ne Not Detect ed NG/mg _crea t Not Available [facility] ([facility]) [address] [place], [address], 01/13/2025 00:06:56 01/09/20 25 01/12/2025 OPIAT E CLASS , MS, UR RFX norhydrocodo ne 97 NG/mg _crea t Expec radha metab olism of opiat e class drugs : Paren t Drug Detec radha Metab olite s ----- ----- - ----- ----- ----- ----- Codei ne: Major : Morph ine, [place] deine Minor : [place] codon e, [place] morph one, Dihyd rocod eine, Norhy droco done, Normo rphin e Morph ine: Major : Normo rphin e Minor : [place] morph one [place] codon e: [place] morph one, Dihyd rocod eine, Norhy droco done [place] morph one: None Dihyd rocod eine: None Heroi n: 6-Ayo tylmo rphin e (if inclu ded), Morph ine, Normo rphin e Codei ne, in small amoun ts in emmanuel rison to morph ine, is often detec radha when heroi n is the sourc e drug. Not Available [facility] ([facility]) [address] [place], [address], 01/13/2025 00:06:56 08/13/20 24 01/13/2024 MAMMO , scree david, digit al, bilat eral No observ ation record ed. [email or web address] [facility] (Med Record) [address], [place], [address], 08/13/2024 15:43:56 Result Notes None recorded. Problems Name Problem SNOMED Code Status Onset Date Resolution Date Notes Provider Name and Address Organization Details Recorded Time Hyperlipidemia 47782777 Active 2023 YUE Maradiaga [address] [place] [address], [phone], [employer] 15:14:11 Vitamin D deficiency 58349888 Active 2023 YUE Maradiaga [address] [place] [address], [address], [employer] 4 15:14:16 Displacement of lumbar intervertebral disc without myelopathy 84363291 Active 2023 YUE Maradiaga [address] [place] [address], [address], [employer] 15:14:07 Seasonal allergic rhinitis 809351315 Active 2024 YUE Maradiaga [address] [place] [address], [address] 8, [employer] 5 10:10:00 Tobacco dependence syndrome 87612903 Active 2024 YUE Maradiaga [address] [place] [address], [address], [employer] 5 10:34:57 Problem Notes None recorded. Procedures Surgical History Date Name Laterality Status Provider Name and Address Organization Details Recorded Time 01/13/20 24 Most Recent Mammogram completed [employer] 10/26/2024 15:22:48 Appendectomy completed [employer] 01/08/2025 09:46:45 Imaging Results None recorded. [...] in Arterial blood by Pulse oximetry Systolic And Diastolic Provider Name and Address Organization Details Last Updated DateTime 5 157.48 cm 32.9 kg/m2 02527.9 1 g 97.9 [degF] 72 /min 95 % 95 % 138/82 mm[Hg] [employer] 5 15:20:14 Date Recorded Body height Body mass index (BMI) Body weight Oxygen saturation Oxygen saturation in Arterial blood by Pulse oximetry Heart rate Body temperature Systolic And Diastolic Provider Name and Address Organization Details Last Updated DateTime 5 157.48 cm 33.3 kg/m2 89304.5 3 g 96 % 96 % 70 /min 98.1 [degF] 120/78 mm[Hg] [employer] 5 09:45:53 Date Recorded Body height Body mass index (BMI) Body weight Body temperature Oxygen saturation Oxygen saturation in Arterial blood by Pulse oximetry Heart rate Systolic And Diastolic Provider Name and Address Organization Details Last Updated DateTime 5 157.48 cm 32.8 kg/m2 54502.4 7 g 97.8 [degF] 96 % 96 % 78 /min 116/80 mm[Hg] [employer] 5 08:56:54 Date Recorded Body weight Body mass index (BMI) Body height Heart rate Oxygen saturation Oxygen saturation in Arterial blood by Pulse oximetry Systolic And Diastolic Provider Name and Address Organization Details Last Updated DateTime 4 66390.1 9 g 32.8 kg/m2 157.48 cm 80 /min 93 % 93 % 111/74 mm[Hg] [employer] 4 09:24:08 Date Recorded Body height Body mass index (BMI) Body weight Heart rate Oxygen saturation Oxygen saturation in Arterial blood by Pulse oximetry Systolic And Diastolic Provider Name and Address Organization Details Last Updated DateTime 4 157.48 cm 32.8 kg/m2 66900.4 7 g 76 /min 95 % 95 % 116/77 mm[Hg] Rosey Smith [employer] 10:29:11 Social History Question Answer Notes LastModified by Organizat ion Details LastModified Time Tobacco Smoking Status Current Every Day Smoker Rosey Smith ryan, [employer] 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 None Information not available [...] Or The Highest Degree You Have Received? [id number] Information not available 06/19/2024 Have There Been Any Changes To Your Family Or Social Situation? No Information no t available 06/19/2024 Are There Any Guns Present In Your Home? Yes Information not available 06/19/2024 Which Of Your Hands Is Dominant? Right Information not available 06/19/2024 What Is Your Home Situation? Mother Information not available 06/19/2024 Do You Have A Medical Power Of Deposit Clerk? No Information not available 06/19/2024 What Was [...] anxious, or unable to sleep at night)? [id number] Information not available 06/19/2024 Do you have [...] History Condition Response Coronary Artery Disease N Gout N Other N Blood Diseases N Kidney Stones N Hyperthyroidism N Breast Cancer N Blood Transfusion N Emergency room visit since last appointm ent. N Hypothyroidism N Lung Disease N Dermatologic Disorders N Depression N COPD N Defects or Inherited Disease N Developmental or Behavioral Disorders N Breast Problem N Difficulty Swallowing N [...] polysaccharide PPV23 4 completed Rosey Vice null, [employer] 08/13/2024 15:45:16 Tdap 3 completed Orsey Vice null, [employer] 08/13/2024 10:29:23 Tdap 7 completed Rosey Vice null, [employer] 08/13/2024 10:29:23 Td (adult), 2 Lf tetanus toxoid, preservative free, adsorbed 0 completed Rosey Vice null, [employer] 08/13/2024 10:29:23 Hep B, adult 4 completed Rosey Vice null, [employer] 08/13/2024 10:29:23 Hep B, adult 4 completed Rosey Vice null, [employer] 08/13/2024 10:29:23 Hep B, adult 4 completed Rosey Vice null, [employer] 08/13/2024 10:29:23 Hep A, adult 9 completed Rosey Vice null, [employer] 08/13/2024 10:29:23 Past Encounters Encounter ID Performer Location Encounter Start Date Encounter Closed Date Diagnosis/Indication Diagnosis SNOMED-CT Code Diagnosis ICD10 Code Diagnosis Note [id number] YUE Maradiaga [address] [address] 06/19/2024 08:40:11 06/19/2024 09:50:42 Long-term current use of opiate analgesic drug 8433626683 73749 Z79.891 Body mass index 30+ - obesity 872033908 Z68.32 Hyperlipidemia 48128022 E78.5 Vitamin D deficiency 347 95815 E55.9 Displaceme nt of lumbar intervertebral disc without myelopathy 47897825 M51.26 RX [place] sent by Dr Hinojosa obtained todayCSA signed today [id number] Mari Conn [address] [address] 08/13/2024 10:12:19 08/13/2024 11:24:20 Administration of pneumococcal vaccine 02443330 Z23 Hyperlipidemia 67565876 E78.5 Vitamin D deficiency 347 70846 E55.9 Adult heal th examination 176879578 Z00.00 Displaceme nt of lumbar intervertebral disc without myelopathy 93574069 M51.[address] [place] [address] Brooks ure appropriat e 06/19/24 [id number] Mari Conn [address] [address] 10/26/2024 15:13:12 10/26/2024 15:40:55 Vitamin D deficiency 90193369 E55.9 Displaceme nt of lumbar intervertebral disc without myelopathy 79133025 M51.26 [id number] Mari Conn [address] [address] 01/08/2025 09:30:16 01/08/2025 10:34:50 Long-term current use of drug therapy 124486415 Z79.899 Seasonal a llergic rhinitis 776552288 J30.2 [id number] YUE Maradiaga [address] [address] 02/12/2025 08:52:09 02/12/2025 09:22:43 Backache 794980685 M54.9 M54.30 Displaceme nt of lumbar intervertebral disc without myelopathy 82265173 M51.[address] [place] [address] Richter Tobacco de pendence syndrome 07832785 F17.200 Health Concerns Section Related Observation LastModified by Organization Detai ls LastModified Time None Recorded Concern Status LastModified by Organization Details LastModified Time None Recorded Advance Directives Directive N: Payers Insurance Date Sequence Insurance Name Policy Number Policy Inman Covered Member ID Inman Member ID Guarantor Name 02/09/2025 1 [facility] (MEDICAID HMO) Essence Justin [id number] Essence Justin Notes Date Note Type Note Provider Name and Address Organization Details Recorded Time 06/19/2024 text/html Patient presents to establish care at [facility], former patient of mine.History of chronic lumbar disc disease. Has herniated disc at L4/L5. Pain radiates down right leg. She sees pain management for injections, which do help. Also takes [place], which helps reduce her pain. Without pain medicine, pain medicine is 9/10. With pain medicine, it is a 5/10.She also has a history of HLD, vitamin D deficiency. YUE Maradiaga [address] [place] [address], [address], [employer] 06/19/2024 15:58:54 08/13/2024 text/html Patient presents for follow up and refills. History of low back pain, radiating down into right leg. Symptoms improved with [place] and she is compliant with meds. She also gets injective therapy at pain management. YUE Maradiaga [address] [place], [address], [employer] 08/13/2024 15:46:25 10/26/2024 text/html Patient presents for followup.History of Vitamin D deficiencyHistory of chronic pain. States she is doing well. YUE Maradiaga [address] [place], [address], [employer] 10/26/2024 16:42:50 01/08/2025 text/html Patient presents with sneezing, itchy eyes, watery eyes, scratchy throat. No fever. YUE Maradiaga [address] [place], [address], [employer] 01/08/2025 12:54:52 02/12/2025 text/html Patient presents for followup. History of chronic low back pain. Takes [place] for pain. Also gets injections at pain management. Due for next injection in a few weeks. Usually is doing pretty well, but states that she has been painting around the bottom of her porch and has pain radiating down her right leg. YUE Maradiaga [address] [place], [address], [employer] 02/12/2025 10:35:21 OBGyn Episode No OBEpisode recorded.
[2025-03-03 07:30] VITALS: BP 140/80; PULSE 75; RESP 15; TEMP 36.7; O2SAT 99
== END 2025-03-03 07:31 | disposition home or self-care (01) ==
LOC: ER 07:21
PROVIDERS: Emergency Provider Emergency Medicine; PCP Physician Assistant
DX: M51.27 Other intervertebral disc displacement, lumbosacral region (principal); M79.604 Pain in right leg; F17.210 Nicotine dependence, cigarettes, uncomplicated
CPT/HCPCS: 96372; 99283; J1885

== ENCOUNTER 2025-03-09 09:55 | Day surgery (SDC) | payer OTHER, SELFPAY ==
[2025-03-09 10:05] VITALS: BP 106/79; PULSE 70; RESP 18; O2SAT 98; BMI 32.0
[2025-03-09] MEDS: IOPAMIDOL-200 (41%);10ML VIAL 10 ML IV (10:18)
[2025-03-09] MEDS: DEXAMETHASONE 10MG/ML 1ML VIAL 10 MG (10:19)
[2025-03-09] MEDS: LIDOCAINE 1% 5ML PF VIAL 5 ML (10:19)
[2025-03-09 10:20] VITALS: BP 156/87; PULSE 84; RESP 18; O2SAT 97
[2025-03-09 10:27] VITALS: BP 138/87; PULSE 65; RESP 18; O2SAT 96
--- NOTE | 2025-03-09 10:42 | EXP.PAIN.PRO ---
Procedure Date: 03/09/25 Time: 10:20 Anesthesiologist:: Haile Carmona CRNA Complications:: None Pre-procedure Diagnosis:: Degenerative disc lumbar spine multilevels. Lumbar radiculopathy. Lumbar disc bulge L4-5, L5-S1. Post-procedure Diagnosis:: Same. Indications for Procedure:: Patient is a very pleasant 55-year-old female who comes our clinic today for right L4-5, L5-S1 transforaminal epidural steroid injection. Patient describes right low lumbar back pain as well as right hip and leg radicular symptoms to the foot. She rates her pain 7/10 Procedure Details:: Details of the procedure explained to the patient. The patient was taken to procedure room placed in the prone position. The area over the lumbar spine was cleansed using chlorhexidine as a cleansing solution. Using fluoroscopy guidance markers were placed over the right border of the L4-5 and L5-S1 vertebral body. At each marker the skin and subcutaneous tissue was anesthetized using 1% lidocaine and a 25-gauge needle. At this time using fluoroscopy guidance 3 and half inch 22-gauge spinal needle was used to access the upper one third of the right L4 for 5 and L5-S1 foramen. Using fluoroscopy guidance in the lateral position needle position was confirmed using 0.5 mL of contrast dye. Good spread was noted in the epidural space at each level. After negative aspiration 2 mL of 1% lidocaine and 10 mg of dexamethasone was injected at each level. Patient tolerated procedure without difficulty. There are no complications. Plan and Disposition:: Patient was discharged without incident.
== END 2025-03-09 10:27 | disposition home or self-care (01) ==
PROVIDERS: PCP Physician Assistant; Visit Provider Nurse Anesthetist, Certified Registered
DX: M51.16 Intervertebral disc disorders with radiculopathy, lumbar region (principal); F17.210 Nicotine dependence, cigarettes, uncomplicated; Z88.8 Allergy status to other drugs, medicaments and biological substances; Z79.84 Long term (current) use of oral hypoglycemic drugs; Z79.899 Other long term (current) drug therapy
CPT/HCPCS: 64483; 64484; J1100; J2003; Q9966

== ENCOUNTER 2025-03-24 15:06 | Outpatient (POV) | payer OTHER, SELFPAY ==
--- OUTSIDE RECORDS SUMMARY | 2025-03-24 15:09 | XMS_ITS | Clinical Summary ---
Author Organization Healthcare Address [address] [id number] Care Team Providers Care Residential Child Care Counselor Name Role Phone Dany Connie Chapo TURNER Primary Care Provider [phone] Allergies No known active allergies Medications atorvastatin [...] time each day. 12/19/2022 Active HYDROcodone-jumana taminophen ([place]) 5-325 MG tablet Take 1 tablet (5 [...] of 2) 2019 [facility]-Depression Screening 12/28/2023 12/27/2022 [id number] Vaccine (1 - season) 2024 [facility]-Influenza Vaccine [...] 11:14 AM EDT) Case Report Cytology Case: [id number] Authorizing Provider: Cecy Mei APRN, DNP Collected: 2023 1114 Ordering Location: [facility] Received: 01/11/2023 0940 Department [facility] First Screen: Nicole Degroot Specimen: ThinPrep Pap Test, Liquid-Based Cervical/Vaginal, CERVICAL/VAGINAL 01/22/2023 3:31 PM EDT [facility] Interpretation NEGATIVE FOR INTRAEPITHELIAL LESION OR MALIGNANCY 01/22/2023 3:31 PM EDT [facility] at 1531 EDT Other Findings Shift in michelle suggestive of bacterial vaginosis. 01/22/2023 3:31 PM EDT [facility] Specimen Adequacy Satisfactory for evaluation; endocervical/ramirez sformation zone component present. Slide scanned and imaged by [employer] Imaging System with manual review of all selected ugarte. 01/22/2023 3:31 PM EDT [facility] Cervical cytology is a screening [...] results is suggested (please call Microbiology at [phone] for results). 01/22/2023 3:31 PM EDT [facility] Menstrual Status Cyclic with Unknown Last Menstrual Period 01/22/2023 3:31 PM EDT [facility] Contraceptive History Not Applicable 01/22/2023 3:31 PM EDT [facility] Screening Type Routine Screen 2022 3:31 PM EDT [facility] High Risk? No 01/22/2023 3:31 PM EDT [facility] HPV Testing Requested? Request HPV Testing if ASCUS (Women 25 Years or Older) 01/22/2023 3:31 PM EDT [facility] Previous Cancer History No 01/22/2023 3:31 PM EDT [facility] Clinical Information Z12.4 - Pap smear for cervical cancer screening [ICD-10-CM] 01/22/2023 3:31 PM EDT [facility] Swab Vaginal and cervical cytologic material / Unknown Non-blood Collection / Unknown 2023 11:14 AM EDT 01/11/2023 9:40 AM EDT us Cecy Mei APRN, [facility] CYTOLOGY ORDERABLES Final Result [facility] [address] [place] [address] from Last 3 Months or Most Recently Relevant to Health Maintenance Insurance [facility] MEDICA[facility] Care Teams Residential Child Care Counselor Relationship Specialty Start Date End Date Mari Conn PA [address] [place] [address] PCP - General 12/27/22
[2025-03-24 15:17] VITALS: BP 115/80; PULSE 97; RESP 14; O2SAT 96; BMI 32.0
--- NOTE | 2025-03-24 15:26 | EXP.PAIN.SOA ---
[facility] Disclaimer: The information contained in this section may have been updated after the patient was seen, as this information can be updated by other users. Medical History Lumbar nerve root impingement [address] [place] [address] Magnetic Resonance Report Signed Patient: Essence Justin MR#: [id number] : 1970 Acct:[id number] Age/Sex: 54 / F ADM Date: 02/11/24 Loc: RAD Attending Dr: Mari TUNRER Ordering Physician: Mari Conn Date of Service: 02/11/24 Procedure(s): MR lumbar spine wo con Accession Number(s): [id number] cc: Rene Cantrell MD; Mari Conn~ FINAL REPORT TECHNIQUE: Multiplanar MR without contrast CLINICAL HISTORY: low back pain radiating down right leg. NO INJURY OR TRAUMA COMPARISON: 09/28/2022 FINDINGS: Sagittal images show normal vertebral height. Alignment is normal. Marrow signal pattern is unremarkable. T12-L1: Unremarkable. L1-2: Unremarkable L2-3: Unremarkable L3-4: Mild diffuse disc bulge and mild facet arthropathy. Borderline central canal stenosis. Mild bilateral neural foraminal narrowing. L4-5: Moderate diffuse disc bulge and facet arthropathy. Mild central canal stenosis and mild bilateral neural foraminal narrowing. L5-S1: Mild diffuse disc bulge. Moderate right lateral canal disc protrusion compresses the right S1 nerve root, similar to previous. Mild facet arthropathy and mild bilateral neural foraminal narrowing. IMPRESSION: Stable exam with right S1 nerve root compression related to L5-S1 disc protrusion. Reviewed, Interpreted and Dictated by Juan Cantrell MD Transcribed by Ana Johnson Authenticated and [facility] Lower extremity pain Family History Other No significant family history Social History Smoking Status: Current every day smoker tobacco type: cigarettes packs per day: 10 alcohol intake: never substance use type: denies use current occupational status: other Travel in the last 8 weeks?: None household members: family housing: apartment PM Subjective & Objective Subjective Subjective:: Patient is a pleasant 55-year-old female who presents today for follow-up of her right transforaminal epidural steroid injection L4-L5 and L5-S1 on 03/09/2025. Today she does rated her pain as 7 out of 10. She states that this has been the first injection that she really noticed no improvement. Patient is still having pain all across her low back and does state the pain radiates down the right leg with it occasionally going down to the foot. Patient does state that she ended up going to see her primary care earlier this week due to the more severe pain and that she did get prescribed methocarbamol 500 mg 3 times a day, pregabalin 75 mg twice a day, keeps her lower at 10 mg every 6 hours and is getting a TENS unit ordered. Patient does state that this combination did seem to help. She does however state that the pain when it does increase is very bothersome and does interfere with her ability perform activities of daily living. Patient is prescribed compounded cream from our office. Her Tom has been reviewed and is appropriate. Review of Systems: General: No recent weight changes, no fever, no sleep disturbances Respiratory: No cough, no shortness of air, no recurring pulmonary infections Cardiovascular/peripheral vascular: No chest pain, no palpitations, no edema, no shortness of breath Gastrointestinal: No new onset incontinence, normal bowel movements reported Genitourinary: No new onset incontinence Musculoskeletal: Low back pain, right leg numbness tingling Psychiatric: [Normal mood/affect] Neurological: [Denies weakness in extremities], [denies balance issues] Pain at rest (0-10 scale): 7 Objective Objective:: Physical Exam: General: Alert and oriented x3, no acute distress, pleasant and cooperative Lungs: Respirations even and unlabored, symmetrical chest expansion Eyes: PERRL Musculoskeletal: Flexion and extension of lumbar [spine] somewhat guarded secondary to pain, [antalgic gait noted] Neurological: Speech clear, no gross sensory deficit Has patient had previous pain injection?: Yes Percent improvement in pain since last injection: Minimal Conservative treatment options previously tried: Home exercise plan Length of treatment: Longer than 12 weeks Meds Home Medications and Allergies Home Medications ?Medication ?Instructions ?Recorded ?Confirmed ?Type ibuprofen 200 mg tablet (Advil) 200 mg PO ONCE PRN Pain 04/16/18 03/24/25 History atorvastatin 10 mg tablet 10 mg PO HS Cholesterol #90 tabs 09/03/23 03/24/25 Rx cholecalciferol (vitamin D3) 50 50 mcg PO DAILY Supplement #90 caps 09/03/23 03/24/25 Rx mcg (2,000 unit) capsule ergocalciferol (vitamin D2) 1,250 50,000 unit PO QWEEK Supplement 09/03/23 03/24/25 Rx mcg (50,000 unit) capsule #14 caps amantadine HCl 100 mg tablet 100 mg PO DAILY 04/28/24 03/24/25 History hydrocodone 5 mg-acetaminophen 325 1 tab PO TID PRN pain #90 tabs 04/28/24 03/24/25 Rx mg tablet nystatin 100,000 unit/mL oral 10 ml PO QID 10 days #400 mL 04/28/24 03/24/25 Rx suspension ciprofloxacin 0.3 %-dexamethasone 4 drp otic (ear) BID 7 days #7.5 mL 12/12/24 03/24/25 Rx 0.1 % ear drops,suspension fluticasone propionate 50 1 spray intranasal DAILY #16 grams 12/12/24 03/24/25 Rx mcg/actuation nasal spray,suspension (Allergy Relief (fluticasone)) cyclobenzaprine 5 mg tablet 5 mg PO TID PRN muscle spasm #10 01/24/25 03/24/25 Rx tabs methocarbamol 500 mg tablet 1,000 mg (2 x 500 mg) PO Q8H PRN 03/03/25 03/24/25 Rx muscle pain and spasm #30 tabs ketorolac 10 mg PO Q6 03/24/25 03/24/25 History pregabalin 75 mg PO BID 03/24/25 03/24/25 History New Prescriptions to Start Prescriptions: Allergies Allergy/AdvReac Type Severity Reaction Status Date / Time gabapentin AdvReac Severe Chest Pain Verified 01/24/25 09:58 Assessment and Plan *Assessment and plan (1) Lumbar radiculopathy: Status: Chronic Category: Medical Code(s): M54.16 - Radiculopathy, lumbar region (2) Degenerative disc disease, lumbar: Status: Chronic Category: Medical Code(s): M51.369 - Other intervertebral disc degeneration, lumbar region without mention of lumbar back pain or lower extremity pain Plan I did discuss with the patient due to the fact that this injection made no improvement in future it may be beneficial for us to try a straightforward lumbar epidural. Patient was also counseled that her previous imaging in January 2024 did show a right S1 nerve root compression at the L5-S1 level. Patient did describe her pain going down the back of her right leg which is appropriate for that same dermatome. I did discuss with her that we would plan on repeating an epidural with it being a straightforward lumbar epidural steroid injection L5-S1 under fluoroscopy. Patient is agreeable to this option. We did also discuss the possibility of ordering updated imaging however she states with her pain the way it is there is no way she be able to lay flat on her back for the imaging. We will continue to monitor how she does over the next several weeks. Patient will return to clinic in 7 weeks for reevaluation of symptoms and plan of care. Patient has been instructed to contact the clinic with any concerns before the next appointment. Dr. Rizzo has reviewed this note and agrees with this plan of care. This note was dictated using voice recognition software and make contain errors or omissions. All injections are used with Lidocaine, Bupivacaine and dexamethasone. Occasionally urine drug screen is needed to verify patient's compliance with our office pain contract. This is ordered based off specific treatments related to chronic pain with the potential to abuse certain medications.
== END 2025-03-24 23:59 | disposition home or self-care (01) ==
LOC: SC.PAIN 15:07
PROVIDERS: PCP Physician Assistant; Visit Provider Nurse Practitioner Family
DX: M51.16 Intervertebral disc disorders with radiculopathy, lumbar region (principal)
CPT/HCPCS: 99212; G0463

== ENCOUNTER 2025-04-13 09:19 | Outpatient (CLI) | payer OTHER, SELFPAY ==
--- NOTE | 2025-04-13 09:20 | CT_ITS ---
FINAL REPORT TECHNIQUE: Axial images were obtained from the lung apex to the mid abdomen by computed tomography. This study was performed with techniques to keep radiation doses as low as reasonably achievable (ALARA). Individualized dose reduction techniques using automated exposure control or adjustment of mA and/or kV according to the patient's size were employed. CLINICAL HISTORY: SCREENING current smoker 1/2ppd x44 years FINDINGS: CHEST CT LOW DOSE CTDI vol (mGy): 2.90 DLP (mGy-cm): 93.25 There is no axillary adenopathy. There is no hilar or mediastinal adenopathy. The heart is normal in size. There is moderate vascular calcification of the coronary arteries. There is no pericardial or pleural effusion. Small nodule is seen in the periphery of the left upper lobe measuring 4 mm on image 15 of series 604. Right middle lobe nodule measures 4 mm on image 47, series 4. Right lower lobe nodule measures 4 mm on image 50, series 4. Left lower lobe nodule measures 5 mm on image 52, series 4. Limited images of the upper abdomen are unremarkable. IMPRESSION: Bilateral pulmonary nodules less than 5 mm or less. Lung RADS category 2. Recommend 12 month follow-up low-dose chest CT. Reviewed, Interpreted and Dictated by Shashank Blanca MD Transcribed by Ana Johnson Authenticated and [facility]
--- OUTSIDE RECORDS SUMMARY | 2025-04-13 09:29 | XMS_ITS | Clinical Summary ---
Author Organization Healthcare Address [address] [id number] Care Team Providers Care Zanjero Name Role Phone Dany Connie Chapo TURNER Primary Care Provider [phone] Allergies No known active allergies Medications atorvastatin [...] time each day. 12/19/2022 Active HYDROcodone-jumana taminophen ([place]) 5-325 MG tablet Take 1 tablet (5 [...] 11/26/2023 8:11 AM EDT Plan of Treatment Upcoming Encounters Date Type Department Care Team (Late st Contact Info) Description 05/12/2025 9:20 AM EDT Consult [place] [facility] [address] [place] [address] Aurelia Liu, YUE [address] [place] [address] Health Maintenance Due Date Last Done Comments [facility]-HIV Screening 1969 [facility]-Hepatitis C Screening 1969 [facility]-/Child/Adol SDOH Screenings 1969 [facility]- SDOH Screenings 1987 [facility]-Adult SDOH Screenings 1987 CT Colonography 2014 Colonoscopy 2014 FIT-DNA 2014 FIT 2014 FOBT 2014 Sigmoidoscopy 2014 [facility]-Colorectal Cancer Screening 2014 [facility]-Breast Cancer Screening 2019 [facility]-Zoster Vaccines (1 of 2) 2019 [facility]-Depression Screening 12/28/2023 12/27/2022 [id number] Vaccine (1 - season) 2024 [facility]-Influenza Vaccine (#1) 2025 [facility]-Pneumococcal Vaccine: 50 + Years (2 of 2 - PCV) 08/13/2025 08/13/2024 [facility]-Pap Smear 2026 2023, 12/27/2022, 09/30/2021 [facility]-DTaP,Tdap,and Td Vaccine s (3 - Td or Tdap) 03/07/2027 03/07/2017, 09/23/2012, 09/19/1999 [facility]-Cervical Cancer Screening 01/11/2028 [facility]-HPV/Cotest 01/11/2028 2023, 12/27/2022, 12/27/2022 [facility]-Hepatitis B Vaccines Completed 004, 10/21/2003, [...] 11:14 AM EDT) Case Report Cytology Case: [id number] Authorizing Provider: Cecy Mei APRN, DNP Collected: 2023 1114 Ordering Location: [facility] Received: 01/11/2023 0940 Department [facility] First Screen: Nicole Degroot Specimen: ThinPrep Pap Test, Liquid-Based Cervical/Vaginal, CERVICAL/VAGINAL 01/22/2023 3:31 PM EDT [facility] Interpretation NEGATIVE FOR INTRAEPITHELIAL LESION OR MALIGNANCY 01/22/2023 3:31 PM EDT [facility] at 1531 EDT Other Findings Shift in michelle suggestive of bacterial vaginosis. 01/22/2023 3:31 PM EDT [facility] Specimen Adequacy Satisfactory for evaluation; endocervical/ramirez sformation zone component present. Slide scanned and imaged by ThinPrep Imaging System with manual review of all selected ugarte. 01/22/2023 3:31 PM EDT [facility] Cervical cytology is a screening test [...] results is suggested (please call Microbiology at [phone] for results). 01/22/2023 3:31 PM EDT [facility] Menstrual Status Cyclic with Unknown Last Menstrual Period 01/22/2023 3:31 PM EDT [facility] Contraceptive History Not Applicable 01/22/2023 3:31 PM EDT [facility] Screening Type Routine Screen 2022 3:31 PM EDT [facility] High Risk? No 01/22/2023 3:31 PM EDT [facility] HPV Testing Requested? Request HPV Testing if ASCUS (Women 25 Years or Older) 01/22/2023 3:31 PM EDT [facility] Previous Cancer History No 01/22/2023 3:31 PM EDT [facility] Clinical Information Z12.4 - Pap smear for cervical cancer screening [ICD-10-CM] 01/22/2023 3:31 PM EDT [facility] Swab Vaginal and cervical cytologic material / Unknown Non-blood Collection / Unknown 2023 11:14 AM EDT 01/11/2023 9:40 AM EDT us Cecy Mei MANAGING MEMBER CYTOLOGY ORDERABLES Final Result [facility] [address] [place] [address] from Last 3 Months or Most Recently Relevant to Health Maintenance Insurance [employer] [facility] MEDICAID Care Teams Zanjero Relationship Specialty Start Date End Date Mari Conn PA [address] [place] [address] PCP - General 12/27/22
== END 2025-04-13 23:59 ==
LOC: RAD 09:19
PROVIDERS: PCP Physician Assistant; Visit Provider Physician Assistant
DX: R91.8 Other nonspecific abnormal finding of lung field (principal); F17.210 Nicotine dependence, cigarettes, uncomplicated
CPT/HCPCS: 71271

== ENCOUNTER 2025-04-20 15:25 | Outpatient (CLI) | payer OTHER, SELFPAY ==
--- NOTE | 2025-04-20 15:28 | MR_ITS ---
PROCEDURE INFORMATION: Exam: MR Lumbar Spine Without Contrast Exam date and time: 04/20/2025 4:03 PM Age: 55 years old Clinical indication: Low back pain; Additional info: Lbp TECHNIQUE: Imaging protocol: Magnetic resonance imaging of the lumbar spine without contrast. COMPARISON: MR LUMBAR SPINE WO CON 02/11/2024 5:27 PM FINDINGS: Nonspecific straightening. Vertebral body height and AP alignment is preserved. Disc desiccation disc space narrowing at L5-S1,. Degenerative signal at L5-S1. Negative for discitis/osteomyelitis. Epidural fluid collection. Conus medullaris terminates at T12-L1. L1-L2: No significant central or foraminal stenosis. L2-L3: No significant central or stenosis. L3-L4: Mild disc bulge and mild bilateral facet joint arthropathy contributing to mild bilateral foraminal stenosis. No significant central canal stenosis. L4-L5: Pquy-kb-tpkwkhlz disc bulge and annular tear. Mild bilateral facet joint arthropathy. Findings contribute to mild central canal stenosis, mild right foraminal stenosis and [id number] left foraminal stenosis. L5-S1: Disc bulge with superimposed right subarticular protrusion measuring up to 7 mm in AP dimension. There is severe right lateral recess stenosis with mass effect upon the traversing right S1 nerve root. Moderate bilateral foraminal stenosis. IMPRESSION: Degenerative disc disease greatest at L5-S1 where right subarticular protrusion causes severe right lateral recess stenosis with mass effect upon the traversing right S1 nerve root.
--- OUTSIDE RECORDS SUMMARY | 2025-04-20 15:31 | XMS_ITS | Clinical Summary ---
Author Organization Healthcare Address [address] [id number] Care Team Providers Care Audiometric Technician Name Role Phone Dany Connie Chapo TURNER Primary Care Provider [phone] Allergies No known active allergies Medications atorvastatin [...] time each day. 12/19/2022 Active HYDROcodone-jumana taminophen ([place]) 5-325 MG tablet Take 1 tablet (5 [...] Consult [place] [facility] [address], [address] [place] [address] Aurelia Liu, YUE [address] [place] [address] Health Maintenance Due Date Last Done Comments [facility]HIV Screening 1970 [facility]-Hepatitis C Screening 1969 [facility]-/Child/Adol SDOH Screenings 1969 [facility]- SDOH Screenings 1987 [facility]-Adult SDOH Screenings 1987 CT Colonography 2014 Colonoscopy 2014 FIT-DNA 2014 FIT 2014 FOBT 2014 Sigmoidoscopy 2014 [facility]-Colorectal Cancer Screening 2014 [facility]-Breast Cancer Screening 2019 [facility]-Zoster Vaccines (1 of 2) 2019 [facility]-Depression Screening 12/28/2023 12/27/2022 [id number] Vaccine (1 - season) 2024 [facility]-Influenza Vaccine [...] 11:14 AM EDT) Case Report Cytology Case: [id number] Authorizing Provider: Cecy Mei APRN, DNP Collected: 2023 1114 Ordering Location: [facility] Received: 01/11/2023 0940 Department [facility] First Screen: Nicole Degroot Specimen: ThinPrep Pap Test, Liquid-Based Cervical/Vaginal, CERVICAL/VAGINAL 01/22/2023 3:31 PM EDT [facility] Interpretation NEGATIVE FOR INTRAEPITHELIAL LESION OR MALIGNANCY 01/22/2023 3:31 PM EDT [facility] at 1531 EDT Other Findings Shift in michelle suggestive of bacterial vaginosis. 01/22/2023 3:31 PM EDT [facility] Specimen Adequacy Satisfactory for evaluation; endocervical/ramirez sformation zone component present. Slide scanned and imaged by ThinPrep Imaging System with manual review of all selected ugarte. 01/22/2023 3:31 PM EDT [facility] Cervical cytology is a screening test [...] results is suggested (please call Microbiology at [phone] for results). 01/22/2023 3:31 PM EDT [facility] Menstrual Status Cyclic with Unknown Last Menstrual Period 01/22/2023 3:31 PM EDT [facility] Contraceptive History Not Applicable 01/22/2023 3:31 PM EDT [facility] Screening Type Routine Screen 2022 3:31 PM EDT [facility] High Risk? No 01/22/2023 3:31 PM EDT [facility] HPV Testing Requested? Request HPV Testing if ASCUS (Women 25 Years or Older) 01/22/2023 3:31 PM EDT [facility] Previous Cancer History No 01/22/2023 3:31 PM EDT [facility] Clinical Information Z12.4 - Pap smear for cervical cancer screening [ICD-10-CM] 01/22/2023 3:31 PM EDT [facility] Swab Vaginal and cervical cytologic material / Unknown Non-blood Collection / Unknown 2023 11:14 AM EDT 01/11/2023 9:40 AM EDT us Cecy Mei PHOTOGRAPHY PROFESSOR CYTOLOGY ORDERABLES Final Result [facility] [address] [place] [address] from Last 3 Months or Most Recently Relevant to Health Maintenance Insurance [employer] [facility] MEDICAID Care Teams Audiometric Technician Relationship Specialty Start Date End Date Mari Conn PA [address] [place] [address] PCP - General 12/27/22
== END 2025-04-20 23:59 | disposition home or self-care (01) ==
LOC: RAD 15:26
PROVIDERS: PCP Physician Assistant; Visit Provider Nurse Practitioner Family
DX: M51.17 Intervertebral disc disorders with radiculopathy, lumbosacral region (principal); M48.07 Spinal stenosis, lumbosacral region; M51.16 Intervertebral disc disorders with radiculopathy, lumbar region
CPT/HCPCS: 72148